=== PATIENT | male | born 1940 | race Caucasian/White ===

== ENCOUNTER 2017-08-10 17:55 | Inpatient (IN) | payer MEDICARE, MEDICAID ==
[~2017-08-10 17:55] MED LIST: ALLO300T2 PO; OMEP20CA10 PO
[2017-08-10 19:06] LABS: BASOPHILS % (AUTO) 0.6 % (0-1); EOSINOPHILS # (AUTO) 0.1 X10'3 (0-0.9); EOSINOPHILS % (AUTO) 1.6 % (0-6); HEMOGLOBIN 7.4 g/dl (14.0-17.9); LYMPHOCYTES # (AUTO) 2.1 X10'3 (1.1-4.8); LYMPHOCYTES % (AUTO) 30.1 % (21-51); MEAN CORPUSCULAR HEMOGLOBIN 23.4 PG (27.0-31.0); MEAN CORPUSCULAR HGB CONC 30.7 % (33.0-36.5); MEAN CORPUSCULAR VOLUME 76.1 FL (78-98); MEAN PLATELET VOLUME 7.9 FL (7.4-10.4); MONOCYTES # (AUTO) 0.6 X10'3 (0-0.9); MONOCYTES % (AUTO) 8.7 % (2-12); NEUTROPHILS # (AUTO) 4.1 X10'3 (1.8-7.7); PLATELET COUNT 168 X10'3 (140-440); RED BLOOD COUNT 3.16 X10'6 (4.70-6.10); RED CELL DISTRIBUTION WIDTH 20.7 % (11.5-14.5); WHITE BLOOD COUNT 6.9 X10'3 (4.5-11.0)
[2017-08-10 19:17] LABS: PROTHROMBIN TIME 10.7 SECONDS (9.0-12.0)
[2017-08-10 19:21] LABS: ALANINE AMINOTRANSFERASE 19 U/L (12-78); ALBUMIN 3.5 G/DL (3.4-5.0); ALBUMIN/GLOBULIN RATIO 1.1 (1.1-1.5); ALKALINE PHOSPHATASE 90 IU/L (46-116); ANION GAP 12 (8-16); ASPARTATE AMINO TRANSFERASE 19 U/L (10-37); BILIRUBIN,TOTAL 0.4 MG/DL (0.1-1.0); BLOOD UREA NITROGEN 17 MG/DL (7-18); BUN/CREATININE RATIO 15.2 (5.4-32.0); CALCIUM 8.7 MG/DL (8.5-10.1); CHLORIDE 111 MMOL/L (99-107); CREATININE 1.12 MG/DL (0.60-1.10); GLUCOSE 101 MG/DL (70-104); SODIUM 145 MMOL/L (135-145); TOTAL CARBON DIOXIDE 22.2 MMOL/L (24-32); TOTAL PROTEIN 6.6 G/DL (6.4-8.2); eGFR 64 ML/MIN
[2017-08-10 20:54] LABS: TROPONIN I 0.07 NG/ML (0.0-0.05)
[2017-08-10] MEDS ORDERED: temazepam 15mg capsule PO PRN (21:00)
[2017-08-10] MEDS ORDERED: FERR-119 PO (21:37)
[2017-08-10] MEDS ORDERED: normal saline 1000ml 1,000 ML IVB ONE (22:12)
[2017-08-10] MEDS ORDERED: HYDROcodone/acetaminophen 10/325mg tab PO PRN (22:15)
[2017-08-10] MEDS ORDERED: diphenhydrAMINE 50 mg/ml inj IV PRN (22:15)
[2017-08-10] MEDS ORDERED: mag hydrox/Alum hydrox/simeth 30ml oral suspension PO PRN (22:15)
[2017-08-10] MEDS ORDERED: bisacodyl 10mg suppository rectal RC PRN (22:15)
[2017-08-10] MEDS ORDERED: ondansetron/PF 4mg/2ml inj IV PRN (22:15)
[2017-08-10] MEDS ORDERED: magnesium hydroxide 30ml (MOM) UD suspension PO PRN (22:15)
[2017-08-10] MEDS ORDERED: acetaminophen 650mg rectal suppository RC PRN (22:15)
[2017-08-10] MEDS ORDERED: HYDROcodone/acetaminophen 5mg/325mg tablet PO PRN (22:15)
[2017-08-10] MEDS ORDERED: acetaminophen 325mg tablet PO PRN (22:15)
[2017-08-10] MEDS ORDERED: diphenhydrAMINE 25mg capsule PO PRN (22:15)
[2017-08-10 22:45] LABS: MAGNESIUM 1.9 MG/DL (1.5-2.4); PHOSPHORUS 3.5 MG/DL (2.3-4.5)
[2017-08-10] MEDS: pantoprazole 40MG/NS 100ML BAG 100 ML IV SCH (22:55)
[2017-08-10] MEDS: normal saline 1000ml 1,000 ML IV SCH (22:58)
[2017-08-10 22:59] LABS: CLARITY,URINE CLEAR (Clear); COLOR,URINE YELLOW (Yellow); GLUCOSE, URINE NEGATIVE (Neg); KETONES,URINE NEGATIVE (Neg); LEUKOCYTE ESTERASE ,URINE NEGATIVE (Neg); NITRITES, URINE NEGATIVE (Neg); OCCULT BLOOD,URINE NEGATIVE (Neg); PH,URINE 5.5 (4.8-8.0); PROTEIN,URINE 30 mg/dl (Neg); UROBILINOGEN,URINE 0.2 E.U/dL (0.2-1.0)
[2017-08-10 23:12] LABS: UA COLLECTION TYPE NON-SPECIFIED
[2017-08-10 23:13] LABS: BACTERIA,URINE NONE SEEN /HPF (Neg); RBC,URINE NONE SEEN /HPF (0-2); SQUAMOUS EPITHELIAL CELL,UR FEW /LPF (FEW); WBC,URINE NONE SEEN /HPF (0-4)
[2017-08-10 23:30] VITALS: BP 156/92
[2017-08-11] VITALS (10 sets, daily range): BP systolic 130–154; BP diastolic 69–85
[2017-08-11] MEDS: pantoprazole 40MG/NS 100ML BAG 100 ML IV SCH ×5 (01:00→18:04)
[2017-08-11] MEDS ORDERED: FLU VACC QS2017-18 36MOS UP/PF 60 MCG/0.5 ML SYRINGE IMVAC ONE (06:20)
[2017-08-11 07:00] LABS: BASOPHILS # (AUTO) 0.1 X10'3 (0-0.2); BASOPHILS % (AUTO) 1.1 % (0-1); EOSINOPHILS # (AUTO) 0.1 X10'3 (0-0.9); EOSINOPHILS % (AUTO) 1.8 % (0-6); HEMATOCRIT 22.6 % (42.0-52.0); LYMPHOCYTES # (AUTO) 1.9 X10'3 (1.1-4.8); LYMPHOCYTES % (AUTO) 31.3 % (21-51); MEAN CORPUSCULAR HEMOGLOBIN 23.5 PG (27.0-31.0); MEAN CORPUSCULAR HGB CONC 30.8 % (33.0-36.5); MEAN CORPUSCULAR VOLUME 76.4 FL (78-98); MEAN PLATELET VOLUME 8.6 FL (7.4-10.4); MONOCYTES # (AUTO) 0.4 X10'3 (0-0.9); MONOCYTES % (AUTO) 6.8 % (2-12); NEUTROPHILS # (AUTO) 3.5 X10'3 (1.8-7.7); PLATELET COUNT 157 X10'3 (140-440); RED BLOOD COUNT 2.95 X10'6 (4.70-6.10); RED CELL DISTRIBUTION WIDTH 20.6 % (11.5-14.5)
[2017-08-11 07:27] LABS: ALANINE AMINOTRANSFERASE 22 U/L (12-78); ALBUMIN 3.1 G/DL (3.4-5.0); ALBUMIN/GLOBULIN RATIO 1.1 (1.1-1.5); ALKALINE PHOSPHATASE 80 IU/L (46-116); ANION GAP 11 (8-16); ASPARTATE AMINO TRANSFERASE 16 U/L (10-37); BILIRUBIN,TOTAL 0.5 MG/DL (0.1-1.0); BLOOD UREA NITROGEN 18 MG/DL (7-18); BUN/CREATININE RATIO 16.1 (5.4-32.0); CALCIUM 8.8 MG/DL (8.5-10.1); CHLORIDE 116 MMOL/L (99-107); CREATININE 1.12 MG/DL (0.60-1.10); GLUCOSE 104 MG/DL (70-104); POTASSIUM 3.9 MMOL/L (3.5-5.1); SODIUM 147 MMOL/L (135-145); TOTAL CARBON DIOXIDE 20.3 MMOL/L (24-32); TOTAL PROTEIN 5.9 G/DL (6.4-8.2); TROPONIN I 0.07 NG/ML (0.0-0.05); eGFR 64 ML/MIN
[2017-08-11] MEDS: nitroGLYCERIN 0.1mg/hour patch TD SCH (08:00)
[2017-08-11] MEDS: docusate sod 100mg capsule PO SCH ×3 (08:00→20:00)
[2017-08-11] MEDS: normal saline 1000ml 1,000 ML IV SCH ×2 (08:14→15:06)
[2017-08-11] MEDS: ciprofloxacin/D5W 200mg/100mL 100 ML IV SCH ×2 (08:17→22:28)
[2017-08-11] MEDS: lisinopril 5mg tablet PO SCH (08:17)
[2017-08-11] MEDS: ferrous sulfate 325mg tablet PO SCH ×3 (08:18→21:38)
[2017-08-11] MEDS: metoprolol tartrate 12.5mg (1/2 tablet) PO SCH ×2 (08:18→21:42)
[2017-08-11] MEDS: allopurinol 300 MG tablet PO SCH (08:19)
[2017-08-11] MEDS: metroNIDAZOLE-Flagyl 250mg/NS 50 ML IV SCH ×2 (09:47→21:28)
[2017-08-11] MEDS: lactobacillus rhamnosus 10,000 MMU CELLS/CAPSULE PO SCH (18:04)
[2017-08-11] MEDS ORDERED: diphenhydrAMINE 25mg capsule PO ONE (18:55)
[2017-08-11] MEDS ORDERED: acetaminophen 325mg tablet PO ONE (18:55)
[2017-08-11] MEDS ORDERED: furosemide 20 MG/2 ML vial IV ONE (18:55)
[2017-08-12] VITALS (18 sets, daily range): BP systolic 100–170; BP diastolic 57–89
[2017-08-12 00:51] LABS: OCCULT BLOOD STOOL POSITIVE (Neg)
[2017-08-12] MEDS: pantoprazole 40MG/NS 100ML BAG 100 ML IV SCH ×5 (01:19→18:59)
[2017-08-12] MEDS: normal saline 1000ml 1,000 ML IV SCH ×3 (04:14→16:22)
[2017-08-12] MEDS: nitroGLYCERIN 0.1mg/hour patch TD SCH (08:00)
[2017-08-12] MEDS: metoprolol tartrate 12.5mg (1/2 tablet) PO SCH ×2 (08:00→23:23)
[2017-08-12] MEDS: docusate sod 100mg capsule PO SCH ×2 (08:00→20:00)
[2017-08-12] MEDS: lisinopril 5mg tablet PO SCH (08:34)
[2017-08-12] MEDS: lactobacillus rhamnosus 10,000 MMU CELLS/CAPSULE PO SCH ×2 (08:34→18:59)
[2017-08-12] MEDS: allopurinol 300 MG tablet PO SCH (08:36)
[2017-08-12] MEDS: atorvastatin 10mg tablet PO SCH (08:37)
[2017-08-12] MEDS: ferrous sulfate 325mg tablet PO SCH ×3 (08:37→23:22)
[2017-08-12] MEDS: ciprofloxacin/D5W 200mg/100mL 100 ML IV SCH ×2 (08:42→20:19)
[2017-08-12 08:44] LABS: ALANINE AMINOTRANSFERASE 19 U/L (12-78); ALBUMIN 3.2 G/DL (3.4-5.0); ALBUMIN/GLOBULIN RATIO 1.2 (1.1-1.5); ALKALINE PHOSPHATASE 81 IU/L (46-116); ANION GAP 11 (8-16); ASPARTATE AMINO TRANSFERASE 16 U/L (10-37); BILIRUBIN,TOTAL 1.4 MG/DL (0.1-1.0); BLOOD UREA NITROGEN 18 MG/DL (7-18); BUN/CREATININE RATIO 14.1 (5.4-32.0); CALCIUM 8.8 MG/DL (8.5-10.1); CHLORIDE 113 MMOL/L (99-107); CREATININE 1.28 MG/DL (0.60-1.10); GLUCOSE 91 MG/DL (70-104); POTASSIUM 3.8 MMOL/L (3.5-5.1); SODIUM 145 MMOL/L (135-145); TOTAL CARBON DIOXIDE 21.3 MMOL/L (24-32); TOTAL PROTEIN 5.9 G/DL (6.4-8.2); eGFR 55 ML/MIN
[2017-08-12 08:46] LABS: BASOPHILS # (AUTO) 0.1 X10'3 (0-0.2); BASOPHILS % (AUTO) 0.8 % (0-1); EOSINOPHILS # (AUTO) 0.2 X10'3 (0-0.9); EOSINOPHILS % (AUTO) 2.8 % (0-6); HEMATOCRIT 30.4 % (42.0-52.0); HEMOGLOBIN 9.7 g/dl (14.0-17.9); LYMPHOCYTES % (AUTO) 28.3 % (21-51); MEAN CORPUSCULAR HEMOGLOBIN 24.6 PG (27.0-31.0); MEAN CORPUSCULAR HGB CONC 31.8 % (33.0-36.5); MEAN CORPUSCULAR VOLUME 77.5 FL (78-98); MEAN PLATELET VOLUME 8.3 FL (7.4-10.4); MONOCYTES # (AUTO) 0.6 X10'3 (0-0.9); MONOCYTES % (AUTO) 7.9 % (2-12); NEUTROPHILS # (AUTO) 4.2 X10'3 (1.8-7.7); NEUTROPHILS % (AUTO) 60.2 % (42-75); PLATELET COUNT 167 X10'3 (140-440); RED BLOOD COUNT 3.92 X10'6 (4.70-6.10); RED CELL DISTRIBUTION WIDTH 19.8 % (11.5-14.5); WHITE BLOOD COUNT 7.1 X10'3 (4.5-11.0)
[2017-08-12] MEDS: metroNIDAZOLE-Flagyl 250mg/NS 50 ML IV SCH ×2 (10:06→21:54)
[2017-08-12] MEDS ORDERED: LIDOcaine Viscous 15ml cup ONE (13:33)
[2017-08-12] MEDS ORDERED: MIDAZolam 1mg/ml 10ml vial ONE (13:33)
[2017-08-12] MEDS ORDERED: fentaNYL/PF 50MCG/1 ML 2ML syringe ONE (13:33)
[2017-08-12] MEDS ORDERED: fentaNYL/PF 50MCG/1 ML 2ML syringe IV PRN (14:50)
[2017-08-12] MEDS ORDERED: bisacodyl 5mg tablet.DR PO PRN (14:50)
[2017-08-12] MEDS ORDERED: PEG 3350/Na sulf,bicarb,Cl/KCl oral sol 4 liter bottle PO ONE (14:50)
[2017-08-12] MEDS ORDERED: MIDAZolam 1mg/ml 10ml vial IV PRN (14:50)
[2017-08-13] VITALS (13 sets, daily range): BP systolic 124–175; BP diastolic 62–88
[2017-08-13] MEDS: pantoprazole 40MG/NS 100ML BAG 100 ML IV SCH ×5 (00:43→21:12)
[2017-08-13] MEDS: normal saline 1000ml 1,000 ML IV SCH ×2 (02:47→17:30)
[2017-08-13 04:01] LABS: BASOPHILS % (AUTO) 0.6 % (0-1); EOSINOPHILS # (AUTO) 0.2 X10'3 (0-0.9); EOSINOPHILS % (AUTO) 3.2 % (0-6); HEMATOCRIT 30.7 % (42.0-52.0); HEMOGLOBIN 9.6 g/dl (14.0-17.9); LYMPHOCYTES # (AUTO) 1.9 X10'3 (1.1-4.8); LYMPHOCYTES % (AUTO) 24.6 % (21-51); MEAN CORPUSCULAR HEMOGLOBIN 24.4 PG (27.0-31.0); MEAN CORPUSCULAR HGB CONC 31.4 % (33.0-36.5); MEAN CORPUSCULAR VOLUME 77.7 FL (78-98); MEAN PLATELET VOLUME 7.7 FL (7.4-10.4); MONOCYTES # (AUTO) 0.6 X10'3 (0-0.9); NEUTROPHILS # (AUTO) 4.9 X10'3 (1.8-7.7); NEUTROPHILS % (AUTO) 63.6 % (42-75); PLATELET COUNT 167 X10'3 (140-440); RED BLOOD COUNT 3.95 X10'6 (4.70-6.10); RED CELL DISTRIBUTION WIDTH 18.9 % (11.5-14.5); WHITE BLOOD COUNT 7.7 X10'3 (4.5-11.0)
[2017-08-13 04:26] LABS: ALANINE AMINOTRANSFERASE 14 U/L (12-78); ALBUMIN 3.3 G/DL (3.4-5.0); ALBUMIN/GLOBULIN RATIO 1.3 (1.1-1.5); ALKALINE PHOSPHATASE 78 IU/L (46-116); ANION GAP 13 (8-16); ASPARTATE AMINO TRANSFERASE 16 U/L (10-37); BILIRUBIN,TOTAL 1.1 MG/DL (0.1-1.0); BLOOD UREA NITROGEN 16 MG/DL (7-18); BUN/CREATININE RATIO 12.7 (5.4-32.0); CALCIUM 8.5 MG/DL (8.5-10.1); CHLORIDE 111 MMOL/L (99-107); CREATININE 1.26 MG/DL (0.60-1.10); GLUCOSE 89 MG/DL (70-104); POTASSIUM 3.6 MMOL/L (3.5-5.1); SODIUM 144 MMOL/L (135-145); TOTAL CARBON DIOXIDE 19.6 MMOL/L (24-32); TOTAL PROTEIN 5.9 G/DL (6.4-8.2); eGFR 56 ML/MIN
[2017-08-13] MEDS: nitroGLYCERIN 0.1mg/hour patch TD SCH (08:00)
[2017-08-13] MEDS: docusate sod 100mg capsule PO SCH ×2 (08:00→20:00)
[2017-08-13] MEDS: lactobacillus rhamnosus 10,000 MMU CELLS/CAPSULE PO SCH ×2 (08:28→17:28)
[2017-08-13] MEDS: metoprolol tartrate 12.5mg (1/2 tablet) PO SCH ×2 (08:29→21:12)
[2017-08-13] MEDS: atorvastatin 10mg tablet PO SCH (08:30)
[2017-08-13] MEDS: allopurinol 300 MG tablet PO SCH (08:30)
[2017-08-13] MEDS: lisinopril 5mg tablet PO SCH (08:31)
[2017-08-13] MEDS: ferrous sulfate 325mg tablet PO SCH ×3 (08:31→21:13)
[2017-08-13] MEDS: ciprofloxacin/D5W 200mg/100mL 100 ML IV SCH ×2 (08:32→21:12)
[2017-08-13] MEDS: metroNIDAZOLE-Flagyl 250mg/NS 50 ML IV SCH ×2 (09:49→22:05)
[2017-08-13] MEDS ORDERED: MIDAZolam 1mg/ml 10ml vial ONE (11:55)
[2017-08-13] MEDS ORDERED: LIDOcaine Viscous 15ml cup ONE (11:55)
[2017-08-13] MEDS ORDERED: fentaNYL/PF 50MCG/1 ML 2ML syringe ONE (11:55)
[2017-08-13] MEDS ORDERED: simethicone 40mg/0.6ml oral drops 30ml MC ONE (14:05)
[2017-08-13] MEDS ORDERED: MIDAZolam 1mg/ml 10ml vial IV PRN (14:05)
[2017-08-13] MEDS ORDERED: normal saline 1000ml 1,000 ML IV SCH (14:05)
[2017-08-13] MEDS ORDERED: fentaNYL/PF 50MCG/1 ML 2ML syringe IV PRN (14:05)
[2017-08-14] VITALS: BP 157/93
[2017-08-14] MEDS: pantoprazole 40MG/NS 100ML BAG 100 ML IV SCH ×2 (01:17→05:53)
[2017-08-14] MEDS: normal saline 1000ml 1,000 ML IV SCH (03:49)
[2017-08-14 05:37] LABS: BASOPHILS % (AUTO) 0.6 % (0-1); EOSINOPHILS # (AUTO) 0.2 X10'3 (0-0.9); EOSINOPHILS % (AUTO) 3.2 % (0-6); HEMATOCRIT 30.1 % (42.0-52.0); HEMOGLOBIN 9.4 g/dl (14.0-17.9); LYMPHOCYTES % (AUTO) 25.7 % (21-51); MEAN CORPUSCULAR HEMOGLOBIN 24.6 PG (27.0-31.0); MEAN CORPUSCULAR HGB CONC 31.3 % (33.0-36.5); MEAN CORPUSCULAR VOLUME 78.5 FL (78-98); MEAN PLATELET VOLUME 8.2 FL (7.4-10.4); MONOCYTES # (AUTO) 0.7 X10'3 (0-0.9); MONOCYTES % (AUTO) 8.5 % (2-12); NEUTROPHILS # (AUTO) 4.8 X10'3 (1.8-7.7); PLATELET COUNT 168 X10'3 (140-440); RED BLOOD COUNT 3.83 X10'6 (4.70-6.10); RED CELL DISTRIBUTION WIDTH 19.6 % (11.5-14.5); WHITE BLOOD COUNT 7.8 X10'3 (4.5-11.0)
[2017-08-14 06:39] LABS: ALANINE AMINOTRANSFERASE 15 U/L (12-78); ALBUMIN 2.9 G/DL (3.4-5.0); ALBUMIN/GLOBULIN RATIO 1.2 (1.1-1.5); ALKALINE PHOSPHATASE 70 IU/L (46-116); ANION GAP 13 (8-16); ASPARTATE AMINO TRANSFERASE 13 U/L (10-37); BILIRUBIN,TOTAL 0.7 MG/DL (0.1-1.0); BLOOD UREA NITROGEN 15 MG/DL (7-18); BUN/CREATININE RATIO 11.5 (5.4-32.0); CALCIUM 8.3 MG/DL (8.5-10.1); CHLORIDE 115 MMOL/L (99-107); CREATININE 1.31 MG/DL (0.60-1.10); GLUCOSE 91 MG/DL (70-104); POTASSIUM 3.7 MMOL/L (3.5-5.1); SODIUM 146 MMOL/L (135-145); TOTAL CARBON DIOXIDE 18.3 MMOL/L (24-32); TOTAL PROTEIN 5.4 G/DL (6.4-8.2); eGFR 53 ML/MIN
[2017-08-14 08:00] VITALS: BP 112/68
[2017-08-14] MEDS: atorvastatin 10mg tablet PO SCH (08:00)
[2017-08-14] MEDS: ciprofloxacin/D5W 200mg/100mL 100 ML IV SCH (08:00)
[2017-08-14] MEDS: nitroGLYCERIN 0.1mg/hour patch TD SCH (08:00)
[2017-08-14] MEDS: metroNIDAZOLE-Flagyl 250mg/NS 50 ML IV SCH (08:00)
[2017-08-14] MEDS: docusate sod 100mg capsule PO SCH (08:00)
[2017-08-14] MEDS: lactobacillus rhamnosus 10,000 MMU CELLS/CAPSULE PO SCH (08:20)
[2017-08-14] MEDS: lisinopril 5mg tablet PO SCH (08:20)
[2017-08-14] MEDS: ferrous sulfate 325mg tablet PO SCH (08:20)
[2017-08-14] MEDS: metoprolol tartrate 12.5mg (1/2 tablet) PO SCH (08:21)
[2017-08-14] MEDS: allopurinol 300 MG tablet PO SCH (08:25)
[2017-08-14 11:00] VITALS: BP 142/75
== END 2017-08-14 11:05 | disposition home or self-care (01) | DRG 377 ==
LOC: ER 17:56 → ED HOLD 22:19 → SUR 3N 23:10
PROVIDERS: ADMIT Family Medicine; ATTEND Internal Medicine
PROC: 30233N1 Transfusion of Nonautologous Red Blood Cells into Peripheral Vein, Percutaneous Approach (ICD-10-PCS; principal; 2017-08-11)
PROC: 0W3P8ZZ Control Bleeding in Gastrointestinal Tract, Via Natural or Artificial Opening Endoscopic (ICD-10-PCS; 2017-08-12)
PROC: 0DJD8ZZ Inspection of Lower Intestinal Tract, Via Natural or Artificial Opening Endoscopic (ICD-10-PCS; 2017-08-13)
PROC: 0W3P8ZZ Control Bleeding in Gastrointestinal Tract, Via Natural or Artificial Opening Endoscopic (ICD-10-PCS; 2017-08-13)
DX: K92.1 Melena (principal); I50.31 Acute diastolic (congestive) heart failure; Z99.81 Dependence on supplemental oxygen; D62 Acute posthemorrhagic anemia; J44.9 Chronic obstructive pulmonary disease, unspecified; K57.32 Diverticulitis of large intestine without perforation or abscess without bleeding; I11.0 Hypertensive heart disease with heart failure; B19.20 Unspecified viral hepatitis C without hepatic coma; F12.90 Cannabis use, unspecified, uncomplicated; K31.89 Other diseases of stomach and duodenum; K21.9 Gastro-esophageal reflux disease without esophagitis; M19.90 Unspecified osteoarthritis, unspecified site; M10.9 Gout, unspecified; Z90.81 Acquired absence of spleen; Z79.899 Other long term (current) drug therapy; Z88.8 Allergy status to other drugs, medicaments and biological substances; Z88.0 Allergy status to penicillin; Z91.010 Allergy to peanuts; Z87.11 Personal history of peptic ulcer disease; Z87.891 Personal history of nicotine dependence
CPT/HCPCS: 36415; 45378; 71020; 71250; 74176; 80053; 81001; 82272; 83735; 83880; 84100; 84443; 84484; 85025; 85610; 86870; 86885; 86900; 86901; 86902; 86905; 86920; 86922; 87070; 93005; 94760; 97116; 97162; 99285; A4620; C9113; G0500; J0744; J1940; J2250; J3010; J3490; J7030; P9016; Q0163

== ENCOUNTER 2017-08-24 12:43 | Emergency (ER) | payer MEDICARE, MEDICAID ==
[~2017-08-24] VITALS: Ht 182.9 cm; Wt 65.9 kg
[~2017-08-24 12:43] MED LIST changes: +FERR-119 PO
[2017-08-24] MEDS ORDERED: normal saline 1000ML IV soln IVB ONE (13:20)
[2017-08-24 13:53] LABS: BASOPHILS % (AUTO) 0.6 % (0-1); EOSINOPHILS # (AUTO) 0.1 X10'3 (0-0.9); EOSINOPHILS % (AUTO) 1.9 % (0-6); HEMATOCRIT 36.5 % (42.0-52.0); HEMOGLOBIN 11.5 g/dl (14.0-17.9); LYMPHOCYTES # (AUTO) 2.3 X10'3 (1.1-4.8); MEAN CORPUSCULAR HEMOGLOBIN 25.1 PG (27.0-31.0); MEAN CORPUSCULAR HGB CONC 31.5 % (33.0-36.5); MEAN CORPUSCULAR VOLUME 79.5 FL (78-98); MEAN PLATELET VOLUME 8.6 FL (7.4-10.4); MONOCYTES # (AUTO) 0.5 X10'3 (0-0.9); MONOCYTES % (AUTO) 8.2 % (2-12); NEUTROPHILS # (AUTO) 3.7 X10'3 (1.8-7.7); NEUTROPHILS % (AUTO) 55.3 % (42-75); PLATELET COUNT 195 X10'3 (140-440); RED BLOOD COUNT 4.59 X10'6 (4.70-6.10); WHITE BLOOD COUNT 6.7 X10'3 (4.5-11.0)
[2017-08-24 14:08] LABS: ALANINE AMINOTRANSFERASE 18 U/L (12-78); ALBUMIN 3.6 G/DL (3.4-5.0); ALBUMIN/GLOBULIN RATIO 1.1 (1.1-1.5); ALKALINE PHOSPHATASE 92 IU/L (46-116); ANION GAP 7 (8-16); ASPARTATE AMINO TRANSFERASE 19 U/L (10-37); BILIRUBIN,TOTAL 0.5 MG/DL (0.1-1.0); BLOOD UREA NITROGEN 16 MG/DL (7-18); BUN/CREATININE RATIO 13.4 (5.4-32.0); CHLORIDE 112 MMOL/L (99-107); CREATININE 1.19 MG/DL (0.60-1.10); GLUCOSE 92 MG/DL (70-104); LIPASE 234 U/L (73-393); MAGNESIUM 1.8 MG/DL (1.5-2.4); POTASSIUM 3.7 MMOL/L (3.5-5.1); SODIUM 144 MMOL/L (135-145); TOTAL CARBON DIOXIDE 25.3 MMOL/L (24-32); TOTAL PROTEIN 6.9 G/DL (6.4-8.2); eGFR 60 ML/MIN
[2017-08-24] MEDS ORDERED: LACT70CA PO (14:47)
[2017-08-24 14:59] VITALS: BP 166/83
== END 2017-08-24 15:01 | disposition home or self-care (01) ==
LOC: ER 12:43
DX: R19.7 Diarrhea, unspecified (principal); F12.10 Cannabis abuse, uncomplicated; I11.0 Hypertensive heart disease with heart failure; I50.9 Heart failure, unspecified; J44.9 Chronic obstructive pulmonary disease, unspecified; M19.90 Unspecified osteoarthritis, unspecified site; M10.9 Gout, unspecified; Z87.11 Personal history of peptic ulcer disease; Z98.890 Other specified postprocedural states; Z56.0 Unemployment, unspecified; Z91.010 Allergy to peanuts; Z88.0 Allergy status to penicillin; Z88.4 Allergy status to anesthetic agent; Z79.899 Other long term (current) drug therapy
CPT/HCPCS: 36415; 80053; 83690; 83735; 85025; 99284; J7030

== ENCOUNTER 2017-09-27 19:02 | Emergency (ER) | payer MEDICARE, MEDICAID ==
[~2017-09-27] VITALS: Ht 182.9 cm; Wt 66.0 kg
[~2017-09-27 19:02] MED LIST changes: +LACT70CA PO
[2017-09-27 20:19] LABS: BASOPHILS % (AUTO) 0.7 % (0-1); EOSINOPHILS # (AUTO) 0.1 X10'3 (0-0.9); EOSINOPHILS % (AUTO) 1.2 % (0-6); HEMATOCRIT 34.8 % (42.0-52.0); HEMOGLOBIN 11.5 g/dl (14.0-17.9); LYMPHOCYTES # (AUTO) 1.5 X10'3 (1.1-4.8); LYMPHOCYTES % (AUTO) 21.1 % (21-51); MEAN CORPUSCULAR HGB CONC 33.2 % (33.0-36.5); MEAN CORPUSCULAR VOLUME 81.6 FL (78-98); MEAN PLATELET VOLUME 8.7 FL (7.4-10.4); MONOCYTES # (AUTO) 0.7 X10'3 (0-0.9); MONOCYTES % (AUTO) 10.3 % (2-12); NEUTROPHILS # (AUTO) 4.7 X10'3 (1.8-7.7); NEUTROPHILS % (AUTO) 66.7 % (42-75); PLATELET COUNT 142 X10'3 (140-440); RED BLOOD COUNT 4.27 X10'6 (4.70-6.10); RED CELL DISTRIBUTION WIDTH 22.1 % (11.5-14.5); WHITE BLOOD COUNT 7.1 X10'3 (4.5-11.0)
[2017-09-27 20:33] LABS: ALANINE AMINOTRANSFERASE 23 U/L (12-78); ALBUMIN/GLOBULIN RATIO 1.3 (1.1-1.5); ALKALINE PHOSPHATASE 102 IU/L (46-116); ANION GAP 14 (8-16); ASPARTATE AMINO TRANSFERASE 22 U/L (10-37); BILIRUBIN,TOTAL 0.9 MG/DL (0.1-1.0); BLOOD UREA NITROGEN 20 MG/DL (7-18); BUN/CREATININE RATIO 15.3 (5.4-32.0); CALCIUM 9.3 MG/DL (8.5-10.1); CHLORIDE 106 MMOL/L (99-107); CREATININE 1.31 MG/DL (0.60-1.10); GLUCOSE 96 MG/DL (70-104); POTASSIUM 3.8 MMOL/L (3.5-5.1); SODIUM 143 MMOL/L (135-145); eGFR 53 ML/MIN
[2017-09-27] MEDS ORDERED: LEVO500T2 PO (21:08)
[2017-09-27] MEDS ORDERED: levoFLOXACIN 250mg tablet PO ONE (21:10)
[2017-09-27 21:29] VITALS: BP 146/87
== END 2017-09-27 21:30 | disposition home or self-care (01) ==
LOC: ER 19:03
DX: J18.9 Pneumonia, unspecified organism (principal); I11.0 Hypertensive heart disease with heart failure; I50.9 Heart failure, unspecified; J44.9 Chronic obstructive pulmonary disease, unspecified; E11.9 Type 2 diabetes mellitus without complications; F12.90 Cannabis use, unspecified, uncomplicated; Z56.0 Unemployment, unspecified; Z88.0 Allergy status to penicillin; Z91.018 Allergy to other foods; Z79.899 Other long term (current) drug therapy; Z72.0 Tobacco use
CPT/HCPCS: 36415; 71046; 80053; 83605; 85025; 87040; 99285

== ENCOUNTER 2017-12-18 09:22 | Day surgery (SDC) | payer MEDICARE, MEDICAID ==
[2017-12-13 15:24] LABS: BASOPHILS % (AUTO) 0.7 % (0-1); EOSINOPHILS # (AUTO) 0.2 X10'3 (0-0.9); EOSINOPHILS % (AUTO) 3.6 % (0-6); LYMPHOCYTES # (AUTO) 1.4 X10'3 (1.1-4.8); LYMPHOCYTES % (AUTO) 21.5 % (21-51); MEAN CORPUSCULAR HEMOGLOBIN 28.4 PG (27.0-31.0); MEAN CORPUSCULAR HGB CONC 33.3 % (33.0-36.5); MEAN CORPUSCULAR VOLUME 85.4 FL (78-98); MEAN PLATELET VOLUME 8.5 FL (7.4-10.4); MONOCYTES # (AUTO) 0.7 X10'3 (0-0.9); MONOCYTES % (AUTO) 10.9 % (2-12); NEUTROPHILS % (AUTO) 63.3 % (42-75); PRE OP HEMATOCRIT 38.7 % (42.0-52.0); PRE OP HEMOGLOBIN 12.9 g/dL (14.0-17.9); PRE OP PLATELET COUNT 152 X10'3 (140-440); RED BLOOD COUNT 4.53 X10'6 (4.70-6.10); RED CELL DISTRIBUTION WIDTH 21.5 % (11.5-14.5)
[2017-12-13 15:37] LABS: ALBUMIN 3.7 G/DL (3.4-5.0); ALBUMIN/GLOBULIN RATIO 1.1 (1.1-1.5); ALKALINE PHOSPHATASE 108 IU/L (46-116); BLOOD UREA NITROGEN 18 MG/DL (7-18); BUN/CREATININE RATIO 15.4 (5.4-32.0); CALCIUM 9.2 MG/DL (8.5-10.1); CHLORIDE 108 MMOL/L (99-107); CREATININE 1.17 MG/DL (0.60-1.10); PRE OP ALT 29 U/L (30-65); PRE OP ANION GAP 9 (8-16); PRE OP AST 25 U/L (10-37); PRE OP BILIRUB, TOTAL 0.6 MG/DL (0.0-1.0); PRE OP GLUCOSE 89 MG/DL (70-104); PRE OP POTASSIUM 3.8 MMOL/L (3.4-5.1); PRE OP SODIUM 143 MMOL/L (135-145); TOTAL CARBON DIOXIDE 25.9 MMOL/L (24-32); eGFR 61 ML/MIN
[2017-12-13 15:42] LABS: CLARITY,URINE CLEAR (Clear); COLOR,URINE YELLOW (Yellow); GLUCOSE, URINE NEGATIVE (Neg); KETONES,URINE NEGATIVE (Neg); LEUKOCYTE ESTERASE ,URINE NEGATIVE (Neg); NITRITES, URINE NEGATIVE (Neg); OCCULT BLOOD,URINE NEGATIVE (Neg); PROTEIN,URINE 100 mg/dl (Neg); UROBILINOGEN,URINE 0.2 E.U/dL (0.2-1.0)
[2017-12-13 15:53] LABS: UA COLLECTION TYPE VOIDED
[2017-12-13 15:54] LABS: BACTERIA,URINE FEW /HPF (Neg); RBC,URINE 0-2 /HPF (0-2); SQUAMOUS EPITHELIAL CELL,UR FEW /LPF (FEW); WBC,URINE 0-4 /HPF (0-4)
[~2017-12-18] VITALS: Ht 182.9 cm; Wt 67.0 kg
[2017-12-18] VITALS (12 sets, daily range): BP systolic 149–178; BP diastolic 75–99
[~2017-12-18 09:22] MED LIST changes: -LACT70CA PO; +clindamycin-Cleocin 900mg/D5W 50 ML IV ONE; +famotidine 20mg tablet PO ONE; +ringers solution, lacted 1,000 ML IV SCH
[2017-12-18] MEDS ORDERED: meperidine/PF 50mg/ml syringe IV PRN ×3 (10:20)
[2017-12-18] MEDS ORDERED: ringers solution, lacted 1,000 ML IV SCH (10:20)
[2017-12-18] MEDS ORDERED: HYDROmorphone inj. 0.5 MG/0.5 ML DISP.SYRIN IV PRN ×2 (10:20)
[2017-12-18] MEDS ORDERED: fentaNYL/PF 50MCG/1 ML 2ML syringe IV PRN ×2 (10:20)
[2017-12-18] MEDS ORDERED: proCHLORperazine 10 MG/2 ml inj IV PRN (10:20)
[2017-12-18] MEDS ORDERED: ondansetron/PF 4mg/2ml inj IV PRN (10:20)
[2017-12-18] MEDS ORDERED: BUPIVAcaine 0.5% inj/PF 30 ml vial ONE (11:05)
[2017-12-18] MEDS ORDERED: fentaNYL/PF 50MCG/1 ML 2ML syringe ONE (11:19)
[2017-12-18] MEDS ORDERED: midazolam 2 mg/2 ml injection ONE (11:20)
[2017-12-18] MEDS ORDERED: LIDOcaine 1% 30ml preserv. free vial ONE (11:54)
[2017-12-18] MEDS ORDERED: propofol inj 20 ML IV ONE (12:16)
[2017-12-18] MEDS ORDERED: acetaminophen w/codeine (30MG) #3 tablet PO ONE (13:10)
== END 2017-12-18 14:53 | disposition home or self-care (01) ==
LOC: PAS 09:22
PROVIDERS: ATTEND Surgery
DX: A63.0 Anogenital (venereal) warts (principal); K64.8 Other hemorrhoids; F15.21 Other stimulant dependence, in remission; M51.36 Other intervertebral disc degeneration, lumbar region; I25.10 Atherosclerotic heart disease of native coronary artery without angina pectoris; G47.33 Obstructive sleep apnea (adult) (pediatric); M19.90 Unspecified osteoarthritis, unspecified site; E78.5 Hyperlipidemia, unspecified; I27.20 Pulmonary hypertension, unspecified; J43.9 Emphysema, unspecified; J45.998 Other asthma; B19.20 Unspecified viral hepatitis C without hepatic coma; Z98.41 Cataract extraction status, right eye; Z88.0 Allergy status to penicillin; Z87.11 Personal history of peptic ulcer disease; Z91.010 Allergy to peanuts; Z88.8 Allergy status to other drugs, medicaments and biological substances; Z98.42 Cataract extraction status, left eye; Z87.891 Personal history of nicotine dependence; Z72.89 Other problems related to lifestyle; Z79.899 Other long term (current) drug therapy
CPT/HCPCS: 36415; 45346; 80053; 81001; 85025; A6224; A6253; A6449; J2175; J2250; J2704; J3010; J3490; J7120; 88304; 88305; A7000

== ENCOUNTER 2018-01-21 10:18 | Day surgery (SDC) | payer MEDICARE, MEDICAID ==
[~2018-01-21] VITALS: Ht 182.9 cm; Wt 65.2 kg
[2018-01-21] VITALS (11 sets, daily range): BP systolic 125–172; BP diastolic 64–79
[~2018-01-21 10:18] MED LIST changes: -clindamycin-Cleocin 900mg/D5W 50 ML IV ONE; -famotidine 20mg tablet PO ONE; -ringers solution, lacted 1,000 ML IV SCH
[2018-01-21] MEDS ORDERED: NORTRIPTYLINE PO (10:49)
[2018-01-21] MEDS ORDERED: sod bicarbonate 150mEq in D5W 1,150 ML IV ONE (11:00)
[2018-01-21 11:08] LABS: BASOPHILS % (AUTO) 0.6 % (0-1); EOSINOPHILS # (AUTO) 0.1 X10'3 (0-0.9); EOSINOPHILS % (AUTO) 2.6 % (0-6); HEMATOCRIT 37.6 % (42.0-52.0); HEMOGLOBIN 12.4 g/dl (14.0-17.9); LYMPHOCYTES # (AUTO) 1.1 X10'3 (1.1-4.8); LYMPHOCYTES % (AUTO) 21.2 % (21-51); MEAN CORPUSCULAR HEMOGLOBIN 29.6 PG (27.0-31.0); MEAN CORPUSCULAR VOLUME 89.8 FL (78-98); MEAN PLATELET VOLUME 8.6 FL (7.4-10.4); MONOCYTES # (AUTO) 0.4 X10'3 (0-0.9); MONOCYTES % (AUTO) 7.2 % (2-12); NEUTROPHILS # (AUTO) 3.7 X10'3 (1.8-7.7); NEUTROPHILS % (AUTO) 68.4 % (42-75); PLATELET COUNT 131 X10'3 (140-440); RED BLOOD COUNT 4.19 X10'6 (4.70-6.10); RED CELL DISTRIBUTION WIDTH 19.1 % (11.5-14.5); WHITE BLOOD COUNT 5.4 X10'3 (4.5-11.0)
[2018-01-21 11:18] LABS: ANION GAP 11 (8-16); BLOOD UREA NITROGEN 16 MG/DL (7-18); BUN/CREATININE RATIO 13.6 (5.4-32.0); CALCIUM 9.3 MG/DL (8.5-10.1); CHLORIDE 109 MMOL/L (99-107); CREATININE 1.18 MG/DL (0.60-1.10); GLUCOSE 89 MG/DL (70-104); MAGNESIUM 1.7 MG/DL (1.5-2.4); POTASSIUM 3.9 MMOL/L (3.5-5.1); PROTHROMBIN TIME 10.2 SECONDS (9.0-12.0); SODIUM 144 MMOL/L (135-145); TOTAL CARBON DIOXIDE 23.9 MMOL/L (24-32); eGFR 60 ML/MIN
[2018-01-21] MEDS ORDERED: iohexol 350MG/ML 100ml bottle IV ONE (13:39)
[2018-01-21] MEDS ORDERED: LIDOcaine 1% 30ml preserv. free vial ONE (13:39)
[2018-01-21] MEDS ORDERED: iohexol 350 MG/ML 50ML vial IV ONE (13:39)
[2018-01-21] MEDS ORDERED: midazolam 2 mg/2 ml injection ONE (13:57)
[2018-01-21] MEDS ORDERED: fentaNYL/PF 50MCG/1 ML 2ML syringe ONE (13:57)
[2018-01-21] MEDS ORDERED: proCHLORperazine 10 MG/2 ml inj ONE (13:57)
== END 2018-01-21 19:05 | disposition home or self-care (01) ==
LOC: SSTAY O 10:18
PROVIDERS: ATTEND Internal Medicine Cardiovascular Disease
DX: I25.118 Atherosclerotic heart disease of native coronary artery with other forms of angina pectoris (principal); I35.0 Nonrheumatic aortic (valve) stenosis; I27.20 Pulmonary hypertension, unspecified; E78.5 Hyperlipidemia, unspecified; J43.8 Other emphysema; K21.9 Gastro-esophageal reflux disease without esophagitis; B19.20 Unspecified viral hepatitis C without hepatic coma; M19.90 Unspecified osteoarthritis, unspecified site; M85.88 Other specified disorders of bone density and structure, other site; M51.36 Other intervertebral disc degeneration, lumbar region; G47.33 Obstructive sleep apnea (adult) (pediatric); F15.21 Other stimulant dependence, in remission; Z87.11 Personal history of peptic ulcer disease; Z87.891 Personal history of nicotine dependence; Z88.0 Allergy status to penicillin; Z98.41 Cataract extraction status, right eye; Z98.42 Cataract extraction status, left eye; Z91.010 Allergy to peanuts; Z90.89 Acquired absence of other organs; Z72.89 Other problems related to lifestyle; Z88.8 Allergy status to other drugs, medicaments and biological substances; Z79.899 Other long term (current) drug therapy
CPT/HCPCS: 36415; 80048; 83735; 85025; 85610; 93005; 93460; 99152; 99153; A6257; C1760; C1769; C1894; J0780; J1644; J2250; J3010; J3490; J7030; Q9967; A4620

== ENCOUNTER 2018-03-09 09:01 | Emergency (ER) | payer MEDICARE, MEDICAID ==
[~2018-03-09] VITALS: Ht 182.9 cm; Wt 65.0 kg
[~2018-03-09 09:01] MED LIST changes: +NORTRIPTYLINE PO
[2018-03-09] MEDS ORDERED: CIPR-259 PO (10:33)
[2018-03-09] MEDS ORDERED: METR500T PO (10:33)
[2018-03-09 10:47] VITALS: BP 128/63
== END 2018-03-09 10:49 | disposition home or self-care (01) ==
LOC: ER 09:02
DX: K57.92 Diverticulitis of intestine, part unspecified, without perforation or abscess without bleeding (principal); I50.9 Heart failure, unspecified; I11.0 Hypertensive heart disease with heart failure; J44.9 Chronic obstructive pulmonary disease, unspecified; F12.90 Cannabis use, unspecified, uncomplicated; Z56.0 Unemployment, unspecified; Z87.891 Personal history of nicotine dependence; Z98.890 Other specified postprocedural states; Z90.81 Acquired absence of spleen; Z88.0 Allergy status to penicillin; Z88.8 Allergy status to other drugs, medicaments and biological substances; Z79.2 Long term (current) use of antibiotics; Z79.899 Other long term (current) drug therapy
CPT/HCPCS: 99283

== ENCOUNTER 2018-05-15 18:42 | Inpatient (IN) | payer MEDICARE, MEDICAID ==
[~2018-05-15] VITALS: Ht 182.9 cm; Wt 68.2 kg
[2018-05-15] MEDS ORDERED: normal saline 1000ML IV soln IV ONE (19:30)
[2018-05-15] MEDS ORDERED: acetaminophen 325mg tablet PO ONE (19:30)
[2018-05-15 19:53] LABS: CLARITY,URINE CLEAR (Clear); COLOR,URINE YELLOW (Yellow); GLUCOSE, URINE NEGATIVE (Neg); KETONES,URINE NEGATIVE (Neg); LEUKOCYTE ESTERASE ,URINE NEGATIVE (Neg); NITRITES, URINE NEGATIVE (Neg); OCCULT BLOOD,URINE TRACE-LYSED (Neg); PH,URINE 5.5 (4.8-8.0); PROTEIN,URINE 100 mg/dl (Neg); UROBILINOGEN,URINE 0.2 E.U/dL (0.2-1.0)
[2018-05-15] MEDS ORDERED: LISI-604 (19:53)
[2018-05-15] MEDS ORDERED: ATOR20TA66 (19:53)
[2018-05-15] MEDS ORDERED: CefTRIAXone 2gm/D5W 50ml 50 ML IV ONE (19:55)
[2018-05-15] MEDS ORDERED: azithromycin 250mg tablet PO ONE (19:55)
[2018-05-15 20:07] LABS: UA COLLECTION TYPE CLN CATCH MIDSTREAM
[2018-05-15 20:09] LABS: BACTERIA,URINE FEW /HPF (Neg); RBC,URINE 0-2 /HPF (0-2); SQUAMOUS EPITHELIAL CELL,UR FEW /LPF (FEW); WBC,URINE 0-4 /HPF (0-4)
[2018-05-15 20:16] LABS: ALANINE AMINOTRANSFERASE 21 U/L (12-78); ALBUMIN 3.5 G/DL (3.4-5.0); ALBUMIN/GLOBULIN RATIO 1.3 (1.1-1.5); ALKALINE PHOSPHATASE 89 IU/L (46-116); ANION GAP 14 (8-16); ASPARTATE AMINO TRANSFERASE 25 U/L (10-37); BILIRUBIN,TOTAL 0.8 MG/DL (0.1-1.0); BLOOD UREA NITROGEN 23 MG/DL (7-18); BUN/CREATININE RATIO 16.7 (5.4-32.0); CALCIUM 8.6 MG/DL (8.5-10.1); CHLORIDE 109 MMOL/L (99-107); CREATININE 1.38 MG/DL (0.60-1.10); GLUCOSE 174 MG/DL (70-104); POTASSIUM 3.6 MMOL/L (3.5-5.1); SODIUM 145 MMOL/L (135-145); TOTAL CARBON DIOXIDE 22.5 MMOL/L (24-32); TOTAL PROTEIN 6.3 G/DL (6.4-8.2); eGFR 50 ML/MIN
[2018-05-15 20:18] LABS: MAGNESIUM 1.5 MG/DL (1.5-2.4)
[2018-05-15 20:21] LABS: HEMATOCRIT 35.7 % (42.0-52.0); HEMOGLOBIN 11.7 g/dl (14.0-17.9); MEAN CORPUSCULAR HEMOGLOBIN 29.4 PG (27.0-31.0); MEAN CORPUSCULAR VOLUME 89.5 FL (78-98); RED BLOOD COUNT 3.99 X10'6 (4.70-6.10)
[2018-05-15 20:22] LABS: BASOPHILS % (AUTO) 0.4 % (0-1); EOSINOPHILS % (AUTO) 0.1 % (0-6); LYMPHOCYTES # (AUTO) 0.2 X10'3 (1.1-4.8); LYMPHOCYTES % (AUTO) 3.1 % (21-51); MEAN CORPUSCULAR HGB CONC 32.8 % (33.0-36.5); MEAN PLATELET VOLUME 8.9 FL (7.4-10.4); MONOCYTES # (AUTO) 0.5 X10'3 (0-0.9); MONOCYTES % (AUTO) 6.7 % (2-12); NEUTROPHILS # (AUTO) 7.3 X10'3 (1.8-7.7); NEUTROPHILS % (AUTO) 89.7 % (42-75); PLATELET COUNT 136 X10'3 (140-440); RED CELL DISTRIBUTION WIDTH 16.3 % (11.5-14.5)
[2018-05-15] MEDS ORDERED: aspirin 81mg tab.chew PO ONE (20:30)
[2018-05-15] MEDS ORDERED: mag hydrox/Alum hydrox/simeth 30ml oral suspension PO PRN (21:15)
[2018-05-15] MEDS ORDERED: magnesium hydroxide 30ml (MOM) UD suspension PO PRN (21:15)
[2018-05-15] MEDS ORDERED: ondansetron/PF 4mg/2ml inj IV PRN (21:15)
[2018-05-15] MEDS ORDERED: non-formulary drug (Omeprazole 1 CAP) PO PRN (21:20)
[2018-05-15] MEDS ORDERED: pantoprazole 40mg Tablet.DR PO PRN (21:25)
[2018-05-15] MEDS: normal saline 1000ml 1,000 ML IV SCH (21:57)
[2018-05-15] MEDS ORDERED: LISI-604 PO (23:17)
[2018-05-15] MEDS ORDERED: ALLO100T PO (23:17)
[2018-05-15] MEDS ORDERED: ATOR20TA PO (23:17)
[2018-05-16 03:00] VITALS: BP 96/58
[2018-05-16] MEDS: temazepam 15mg capsule PO PRN ×2 (03:44→22:31)
[2018-05-16 06:00] VITALS: BP 87/55
[2018-05-16] MEDS: azithromycin 250mg tablet PO SCH (07:55)
[2018-05-16] MEDS: allopurinol 300 MG tablet PO SCH (07:56)
[2018-05-16] MEDS: ferrous sulfate 325mg tablet PO SCH ×3 (07:57→20:07)
[2018-05-16] MEDS ORDERED: heparin, porcine 5000 units/ml vial SQ SCH (08:00)
[2018-05-16] MEDS: CefTRIAXone/D5W-Rocephin 1gm 50 ML IV SCH (08:05)
[2018-05-16] MEDS: normal saline 1000ml 1,000 ML IV SCH (08:06)
[2018-05-16 08:39] LABS: ALANINE AMINOTRANSFERASE 23 U/L (12-78); ALBUMIN 2.9 G/DL (3.4-5.0); ALBUMIN/GLOBULIN RATIO 1.1 (1.1-1.5); ALKALINE PHOSPHATASE 85 IU/L (46-116); ANION GAP 13 (8-16); ASPARTATE AMINO TRANSFERASE 28 U/L (10-37); BLOOD UREA NITROGEN 23 MG/DL (7-18); BUN/CREATININE RATIO 17.6 (5.4-32.0); CALCIUM 7.8 MG/DL (8.5-10.1); CHLORIDE 109 MMOL/L (99-107); CREATININE 1.31 MG/DL (0.60-1.10); GLUCOSE 111 MG/DL (70-104); POTASSIUM 3.9 MMOL/L (3.5-5.1); SODIUM 145 MMOL/L (135-145); TOTAL PROTEIN 5.6 G/DL (6.4-8.2); eGFR 53 ML/MIN
[2018-05-16 08:43] LABS: HEMATOCRIT 33.7 % (42.0-52.0); HEMOGLOBIN 11.2 g/dl (14.0-17.9); MEAN CORPUSCULAR HEMOGLOBIN 29.7 PG (27.0-31.0); MEAN CORPUSCULAR VOLUME 89.2 FL (78-98); RED BLOOD COUNT 3.78 X10'6 (4.70-6.10); WHITE BLOOD COUNT 13.4 X10'3 (4.5-11.0)
[2018-05-16 08:44] LABS: BASOPHILS % (AUTO) 0.1 % (0-1); EOSINOPHILS % (AUTO) 0.2 % (0-6); LYMPHOCYTES % (AUTO) 7.3 % (21-51); MEAN CORPUSCULAR HGB CONC 33.3 % (33.0-36.5); MEAN PLATELET VOLUME 9.2 FL (7.4-10.4); MONOCYTES # (AUTO) 0.9 X10'3 (0-0.9); MONOCYTES % (AUTO) 7.1 % (2-12); NEUTROPHILS # (AUTO) 11.5 X10'3 (1.8-7.7); NEUTROPHILS % (AUTO) 85.3 % (42-75); PLATELET COUNT 123 X10'3 (140-440); RED CELL DISTRIBUTION WIDTH 16.1 % (11.5-14.5)
[2018-05-16] MEDS ORDERED: heparin 10,000 units/1 ML INJ IV PRN (09:00)
[2018-05-16] MEDS ORDERED: heparin 10,000 units/1 ML INJ IV ONE (09:00)
[2018-05-16 11:00] VITALS: BP 105/56
[2018-05-16 15:00] VITALS: BP 108/59
[2018-05-16 18:00] VITALS: BP 123/58
[2018-05-16] MEDS: lactobacillus rhamnosus 10,000 MMU CELLS/CAPSULE PO SCH (20:07)
[2018-05-16 22:00] VITALS: BP 129/70
[2018-05-17 02:00] VITALS: BP 115/55
[2018-05-17 06:00] VITALS: BP 139/72
[2018-05-17 06:21] LABS: BASOPHILS % (AUTO) 0.3 % (0-1); EOSINOPHILS # (AUTO) 0.1 X10'3 (0-0.9); EOSINOPHILS % (AUTO) 1.4 % (0-6); HEMATOCRIT 30.2 % (42.0-52.0); HEMOGLOBIN 10.2 g/dl (14.0-17.9); MEAN CORPUSCULAR HEMOGLOBIN 29.5 PG (27.0-31.0); MEAN CORPUSCULAR HGB CONC 33.7 % (33.0-36.5); MEAN CORPUSCULAR VOLUME 87.4 FL (78-98); MONOCYTES # (AUTO) 0.7 X10'3 (0-0.9); MONOCYTES % (AUTO) 8.4 % (2-12); NEUTROPHILS % (AUTO) 78.9 % (42-75); PLATELET COUNT 122 X10'3 (140-440); RED BLOOD COUNT 3.45 X10'6 (4.70-6.10); RED CELL DISTRIBUTION WIDTH 16.1 % (11.5-14.5); WHITE BLOOD COUNT 8.8 X10'3 (4.5-11.0)
[2018-05-17 06:35] LABS: ALANINE AMINOTRANSFERASE 17 U/L (12-78); ALBUMIN 2.5 G/DL (3.4-5.0); ALBUMIN/GLOBULIN RATIO 0.9 (1.1-1.5); ALKALINE PHOSPHATASE 75 IU/L (46-116); ANION GAP 10 (8-16); ASPARTATE AMINO TRANSFERASE 19 U/L (10-37); BILIRUBIN,TOTAL 0.7 MG/DL (0.1-1.0); BLOOD UREA NITROGEN 23 MG/DL (7-18); BUN/CREATININE RATIO 17.8 (5.4-32.0); CALCIUM 7.9 MG/DL (8.5-10.1); CHLORIDE 110 MMOL/L (99-107); CREATININE 1.29 MG/DL (0.60-1.10); GLUCOSE 97 MG/DL (70-104); SODIUM 142 MMOL/L (135-145); TOTAL CARBON DIOXIDE 21.8 MMOL/L (24-32); TOTAL PROTEIN 5.3 G/DL (6.4-8.2); eGFR 54 ML/MIN
[2018-05-17] MEDS: lactobacillus rhamnosus 10,000 MMU CELLS/CAPSULE PO SCH ×2 (08:33→21:02)
[2018-05-17] MEDS: allopurinol 300 MG tablet PO SCH (08:33)
[2018-05-17] MEDS: CefTRIAXone/D5W-Rocephin 1gm 50 ML IV SCH (08:33)
[2018-05-17] MEDS: azithromycin 250mg tablet PO SCH (08:34)
[2018-05-17] MEDS: ferrous sulfate 325mg tablet PO SCH ×3 (08:34→21:02)
[2018-05-17] MEDS: normal saline 1000ml 1,000 ML IV SCH (08:36)
[2018-05-17] MEDS: heparin, porcine 5000 units/ml vial SQ SCH ×2 (08:37→16:20)
[2018-05-17 11:00] VITALS: BP 136/71
[2018-05-17 15:00] VITALS: BP 126/69
[2018-05-17 18:00] VITALS: BP 141/76
[2018-05-17] MEDS ORDERED: BUDESONIDE 0.25 MG/2 ML AMPUL.NEB IH SCH (20:00)
[2018-05-17] MEDS: temazepam 15mg capsule PO PRN (21:02)
[2018-05-17 22:00] VITALS: BP 139/77
[2018-05-18] MEDS: heparin, porcine 5000 units/ml vial SQ SCH ×2 (00:36→10:00)
[2018-05-18 02:00] VITALS: BP 125/71
[2018-05-18 06:00] VITALS: BP 108/62
[2018-05-18 06:43] LABS: BASOPHILS # (AUTO) 0.1 X10'3 (0-0.2); BASOPHILS % (AUTO) 0.9 % (0-1); EOSINOPHILS # (AUTO) 0.1 X10'3 (0-0.9); EOSINOPHILS % (AUTO) 1.9 % (0-6); HEMATOCRIT 29.4 % (42.0-52.0); HEMOGLOBIN 9.9 g/dl (14.0-17.9); LYMPHOCYTES # (AUTO) 0.6 X10'3 (1.1-4.8); LYMPHOCYTES % (AUTO) 9.2 % (21-51); MEAN CORPUSCULAR HEMOGLOBIN 29.7 PG (27.0-31.0); MEAN CORPUSCULAR HGB CONC 33.7 % (33.0-36.5); MEAN CORPUSCULAR VOLUME 88.3 FL (78-98); MEAN PLATELET VOLUME 8.9 FL (7.4-10.4); MONOCYTES # (AUTO) 0.5 X10'3 (0-0.9); MONOCYTES % (AUTO) 7.6 % (2-12); NEUTROPHILS # (AUTO) 5.7 X10'3 (1.8-7.7); NEUTROPHILS % (AUTO) 80.4 % (42-75); PLATELET COUNT 125 X10'3 (140-440); RED BLOOD COUNT 3.33 X10'6 (4.70-6.10); RED CELL DISTRIBUTION WIDTH 15.8 % (11.5-14.5)
[2018-05-18 06:57] LABS: ALANINE AMINOTRANSFERASE 15 U/L (12-78); ALBUMIN 2.6 G/DL (3.4-5.0); ALBUMIN/GLOBULIN RATIO 0.9 (1.1-1.5); ALKALINE PHOSPHATASE 78 IU/L (46-116); ANION GAP 12 (8-16); ASPARTATE AMINO TRANSFERASE 12 U/L (10-37); BILIRUBIN,TOTAL 0.6 MG/DL (0.1-1.0); BLOOD UREA NITROGEN 23 MG/DL (7-18); BUN/CREATININE RATIO 17.8 (5.4-32.0); CALCIUM 8.3 MG/DL (8.5-10.1); CHLORIDE 111 MMOL/L (99-107); CREATININE 1.29 MG/DL (0.60-1.10); GLUCOSE 103 MG/DL (70-104); POTASSIUM 3.7 MMOL/L (3.5-5.1); SODIUM 143 MMOL/L (135-145); TOTAL CARBON DIOXIDE 20.2 MMOL/L (24-32); TOTAL PROTEIN 5.5 G/DL (6.4-8.2); eGFR 54 ML/MIN
[2018-05-18] MEDS: ferrous sulfate 325mg tablet PO SCH ×3 (09:34→21:43)
[2018-05-18] MEDS: allopurinol 300 MG tablet PO SCH (09:34)
[2018-05-18] MEDS: atorvastatin 20mg tablet PO SCH (09:34)
[2018-05-18] MEDS: lactobacillus rhamnosus 10,000 MMU CELLS/CAPSULE PO SCH ×2 (09:35→19:51)
[2018-05-18] MEDS: normal saline 1000ml 1,000 ML IV SCH (09:35)
[2018-05-18] MEDS: CefTRIAXone/D5W-Rocephin 1gm 50 ML IV SCH (09:35)
[2018-05-18] MEDS: azithromycin 250mg tablet PO SCH (09:35)
[2018-05-18 11:00] VITALS: BP 149/120
[2018-05-18 12:01] LABS: OCCULT BLOOD STOOL POSITIVE (Neg)
[2018-05-18 15:00] VITALS: BP 150/80
[2018-05-18 18:00] VITALS: BP 128/92
[2018-05-18] MEDS ORDERED: pantoprazole 40 MG vial IV ONE (19:00)
[2018-05-18] MEDS: pantoprazole 40MG/NS 100ML BAG 100 ML IV SCH (21:42)
[2018-05-18 22:00] VITALS: BP 133/76
[2018-05-19] VITALS (19 sets, daily range): BP systolic 122–150; BP diastolic 59–84
[2018-05-19] MEDS: temazepam 15mg capsule PO PRN ×2 (00:07→21:12)
[2018-05-19] MEDS: pantoprazole 40MG/NS 100ML BAG 100 ML IV SCH ×5 (03:21→20:01)
[2018-05-19 06:59] LABS: BASOPHILS % (AUTO) 0.5 % (0-1); EOSINOPHILS # (AUTO) 0.1 X10'3 (0-0.9); EOSINOPHILS % (AUTO) 2.4 % (0-6); HEMATOCRIT 28.7 % (42.0-52.0); HEMOGLOBIN 9.8 g/dl (14.0-17.9); LYMPHOCYTES # (AUTO) 0.7 X10'3 (1.1-4.8); LYMPHOCYTES % (AUTO) 12.6 % (21-51); MEAN CORPUSCULAR HEMOGLOBIN 29.8 PG (27.0-31.0); MEAN CORPUSCULAR HGB CONC 34.1 % (33.0-36.5); MEAN CORPUSCULAR VOLUME 87.5 FL (78-98); MEAN PLATELET VOLUME 8.8 FL (7.4-10.4); MONOCYTES # (AUTO) 0.6 X10'3 (0-0.9); MONOCYTES % (AUTO) 10.2 % (2-12); NEUTROPHILS # (AUTO) 4.2 X10'3 (1.8-7.7); NEUTROPHILS % (AUTO) 74.3 % (42-75); PLATELET COUNT 127 X10'3 (140-440); RED BLOOD COUNT 3.28 X10'6 (4.70-6.10); RED CELL DISTRIBUTION WIDTH 15.6 % (11.5-14.5); WHITE BLOOD COUNT 5.6 X10'3 (4.5-11.0)
[2018-05-19 07:09] LABS: ALANINE AMINOTRANSFERASE 15 U/L (12-78); ALBUMIN 2.7 G/DL (3.4-5.0); ALBUMIN/GLOBULIN RATIO 0.9 (1.1-1.5); ALKALINE PHOSPHATASE 84 IU/L (46-116); ANION GAP 13 (8-16); ASPARTATE AMINO TRANSFERASE 17 U/L (10-37); BILIRUBIN,TOTAL 0.6 MG/DL (0.1-1.0); BLOOD UREA NITROGEN 21 MG/DL (7-18); BUN/CREATININE RATIO 18.8 (5.4-32.0); CALCIUM 8.3 MG/DL (8.5-10.1); CHLORIDE 110 MMOL/L (99-107); CREATININE 1.12 MG/DL (0.60-1.10); GLUCOSE 93 MG/DL (70-104); POTASSIUM 3.7 MMOL/L (3.5-5.1); SODIUM 145 MMOL/L (135-145); TOTAL CARBON DIOXIDE 21.9 MMOL/L (24-32); TOTAL PROTEIN 5.6 G/DL (6.4-8.2); eGFR 64 ML/MIN
[2018-05-19] MEDS: heparin, porcine 5000 units/ml vial SQ SCH ×3 (08:00→16:17)
[2018-05-19] MEDS: acetaminophen 325mg tablet PO PRN ×2 (08:45→19:53)
[2018-05-19] MEDS: azithromycin 250mg tablet PO SCH (08:45)
[2018-05-19] MEDS: lactobacillus rhamnosus 10,000 MMU CELLS/CAPSULE PO SCH ×2 (08:46→19:51)
[2018-05-19] MEDS: CefTRIAXone/D5W-Rocephin 1gm 50 ML IV SCH (08:46)
[2018-05-19] MEDS: allopurinol 300 MG tablet PO SCH (08:46)
[2018-05-19] MEDS: atorvastatin 20mg tablet PO SCH (08:46)
[2018-05-19] MEDS: ferrous sulfate 325mg tablet PO SCH ×3 (08:46→20:00)
[2018-05-19] MEDS ORDERED: fentaNYL/PF 50MCG/1 ML 2ML syringe ONE (09:40)
[2018-05-19] MEDS ORDERED: MIDAZolam 5mg/5ml vial ONE (09:41)
[2018-05-19] MEDS ORDERED: LIDOcaine Viscous 15ml cup ONE (09:41)
[2018-05-19 10:26] LABS: PROTHROMBIN TIME 10.5 SECONDS (9.0-12.0)
[2018-05-19] MEDS ORDERED: nitroGLYCERIN 0.4mg SUBLingual tab SL PRN (14:40)
[2018-05-19] MEDS: levoFLOXACIN-Levaquin 750MG/D5 150 ML IV SCH (16:19)
[2018-05-19] MEDS: metoprolol tartrate 12.5mg (1/2 tablet) PO SCH (19:52)
[2018-05-20] MEDS: pantoprazole 40MG/NS 100ML BAG 100 ML IV SCH ×3 (01:00→11:00)
[2018-05-20] MEDS: normal saline 1000ml 1,000 ML IV SCH (01:15)
[2018-05-20 03:00] VITALS: BP 152/75
[2018-05-20 05:34] LABS: ALANINE AMINOTRANSFERASE 13 U/L (12-78); ALBUMIN 2.5 G/DL (3.4-5.0); ALBUMIN/GLOBULIN RATIO 0.9 (1.1-1.5); ALKALINE PHOSPHATASE 81 IU/L (46-116); ANION GAP 14 (8-16); ASPARTATE AMINO TRANSFERASE 16 U/L (10-37); BILIRUBIN,TOTAL 0.6 MG/DL (0.1-1.0); BLOOD UREA NITROGEN 18 MG/DL (7-18); BUN/CREATININE RATIO 13.8 (5.4-32.0); CALCIUM 8.5 MG/DL (8.5-10.1); CHLORIDE 111 MMOL/L (99-107); GLUCOSE 86 MG/DL (70-104); POTASSIUM 3.8 MMOL/L (3.5-5.1); SODIUM 145 MMOL/L (135-145); TOTAL CARBON DIOXIDE 19.7 MMOL/L (24-32); TOTAL PROTEIN 5.3 G/DL (6.4-8.2); eGFR 54 ML/MIN
[2018-05-20 05:40] LABS: BASOPHILS % (AUTO) 0.9 % (0-1); EOSINOPHILS # (AUTO) 0.1 X10'3 (0-0.9); EOSINOPHILS % (AUTO) 2.8 % (0-6); HEMATOCRIT 27.9 % (42.0-52.0); HEMOGLOBIN 9.5 g/dl (14.0-17.9); LYMPHOCYTES # (AUTO) 0.4 X10'3 (1.1-4.8); LYMPHOCYTES % (AUTO) 8.7 % (21-51); MEAN CORPUSCULAR HEMOGLOBIN 30.1 PG (27.0-31.0); MEAN CORPUSCULAR HGB CONC 34.2 % (33.0-36.5); MEAN CORPUSCULAR VOLUME 88.1 FL (78-98); MEAN PLATELET VOLUME 8.8 FL (7.4-10.4); MONOCYTES # (AUTO) 0.5 X10'3 (0-0.9); NEUTROPHILS # (AUTO) 3.7 X10'3 (1.8-7.7); NEUTROPHILS % (AUTO) 76.6 % (42-75); PLATELET COUNT 118 X10'3 (140-440); RED BLOOD COUNT 3.17 X10'6 (4.70-6.10); RED CELL DISTRIBUTION WIDTH 15.7 % (11.5-14.5); WHITE BLOOD COUNT 4.7 X10'3 (4.5-11.0)
[2018-05-20 06:53] VITALS: BP 136/71
[2018-05-20] MEDS: ferrous sulfate 325mg tablet PO SCH (07:46)
[2018-05-20] MEDS: lactobacillus rhamnosus 10,000 MMU CELLS/CAPSULE PO SCH (07:46)
[2018-05-20] MEDS: atorvastatin 20mg tablet PO SCH (07:46)
[2018-05-20] MEDS: allopurinol 300 MG tablet PO SCH (07:46)
[2018-05-20] MEDS: metoprolol tartrate 12.5mg (1/2 tablet) PO SCH (07:46)
[2018-05-20] MEDS: heparin, porcine 5000 units/ml vial SQ SCH ×2 (07:48)
[2018-05-20] MEDS: levoFLOXACIN-Levaquin 750MG/D5 150 ML IV SCH (07:48)
[2018-05-20] MEDS ORDERED: NITR0.4T51 SL (11:04)
[2018-05-20] MEDS ORDERED: PANT-47 PO (11:04)
[2018-05-20] MEDS ORDERED: METO25TA6 PO (11:04)
[2018-05-20] MEDS ORDERED: LEVO750T21 PO (11:04)
== END 2018-05-20 13:22 | disposition home health service (06) | DRG 871 ==
LOC: ER 18:42 → ED HOLD 21:18 → PCU 3S 21:44
PROVIDERS: ADMIT Internal Medicine; ATTEND Family Medicine
PROC: 0DB68ZX Excision of Stomach, Via Natural or Artificial Opening Endoscopic, Diagnostic (ICD-10-PCS; principal; 2018-05-19)
PROC: 0D598ZZ Destruction of Duodenum, Via Natural or Artificial Opening Endoscopic (ICD-10-PCS; 2018-05-19)
PROC: 0D568ZZ Destruction of Stomach, Via Natural or Artificial Opening Endoscopic (ICD-10-PCS; 2018-05-19)
DX: A41.9 Sepsis, unspecified organism (principal); K29.71 Gastritis, unspecified, with bleeding; I21.4 Non-ST elevation (NSTEMI) myocardial infarction; J18.9 Pneumonia, unspecified organism; J96.20 Acute and chronic respiratory failure, unspecified whether with hypoxia or hypercapnia; K31.811 Angiodysplasia of stomach and duodenum with bleeding; I13.0 Hypertensive heart and chronic kidney disease with heart failure and stage 1 through stage 4 chronic kidney disease, or unspecified chronic kidney disease; J44.0 Chronic obstructive pulmonary disease with (acute) lower respiratory infection; B19.20 Unspecified viral hepatitis C without hepatic coma; M10.9 Gout, unspecified; M19.90 Unspecified osteoarthritis, unspecified site; D50.0 Iron deficiency anemia secondary to blood loss (chronic); E11.22 Type 2 diabetes mellitus with diabetic chronic kidney disease; I25.10 Atherosclerotic heart disease of native coronary artery without angina pectoris; I35.0 Nonrheumatic aortic (valve) stenosis; I50.9 Heart failure, unspecified; N18.9 Chronic kidney disease, unspecified; Z56.0 Unemployment, unspecified; Z90.81 Acquired absence of spleen; Z95.1 Presence of aortocoronary bypass graft; Z88.0 Allergy status to penicillin; Z88.8 Allergy status to other drugs, medicaments and biological substances; Z86.010 Personal history of colon polyps; Z87.11 Personal history of peptic ulcer disease; Z87.891 Personal history of nicotine dependence; Z80.0 Family history of malignant neoplasm of digestive organs; Z82.0 Family history of epilepsy and other diseases of the nervous system; Z79.82 Long term (current) use of aspirin
CPT/HCPCS: 36415; 43239; 71045; 80053; 81001; 82272; 82948; 83605; 83735; 84145; 84439; 84443; 84484; 85025; 85610; 85730; 87040; 87070; 87324; 87449; 88305; 88342; 92616; 93005; 94640; 94668; 94760; 99152; 99285; A4620; C9113; J0696; J1644; J1956; J2250; J3010; J7030

== ENCOUNTER 2018-06-03 11:29 | Outpatient (CLI) | payer MEDICARE, MEDICAID ==
[~2018-06-03 11:29] MED LIST changes: +ALLO100T PO; -ALLO300T2 PO; +ATOR20TA PO; +LISI-604 PO; +METO25TA6 PO; +NITR0.4T51 SL; -NORTRIPTYLINE PO; -OMEP20CA10 PO; +PANT-47 PO
[2018-06-03 12:37] LABS: BASOPHILS % (AUTO) 0.7 % (0-1); EOSINOPHILS # (AUTO) 0.1 X10'3 (0-0.9); EOSINOPHILS % (AUTO) 2.4 % (0-6); HEMATOCRIT 36.2 % (42.0-52.0); HEMOGLOBIN 11.7 g/dl (14.0-17.9); LYMPHOCYTES # (AUTO) 1.2 X10'3 (1.1-4.8); LYMPHOCYTES % (AUTO) 24.6 % (21-51); MEAN CORPUSCULAR HEMOGLOBIN 28.6 PG (27.0-31.0); MEAN CORPUSCULAR HGB CONC 32.2 % (33.0-36.5); MEAN CORPUSCULAR VOLUME 88.6 FL (78-98); MEAN PLATELET VOLUME 8.1 FL (7.4-10.4); MONOCYTES # (AUTO) 0.5 X10'3 (0-0.9); MONOCYTES % (AUTO) 10.4 % (2-12); NEUTROPHILS # (AUTO) 2.9 X10'3 (1.8-7.7); NEUTROPHILS % (AUTO) 61.9 % (42-75); PLATELET COUNT 190 X10'3 (140-440); RED BLOOD COUNT 4.08 X10'6 (4.70-6.10); RED CELL DISTRIBUTION WIDTH 18.2 % (11.5-14.5); WHITE BLOOD COUNT 4.7 X10'3 (4.5-11.0)
[2018-06-03 12:54] LABS: ALANINE AMINOTRANSFERASE 22 U/L (12-78); ALBUMIN 3.5 G/DL (3.4-5.0); ALBUMIN/GLOBULIN RATIO 1.1 (1.1-1.5); ALKALINE PHOSPHATASE 101 IU/L (46-116); ANION GAP 11 (8-16); ASPARTATE AMINO TRANSFERASE 20 U/L (10-37); BILIRUBIN,TOTAL 0.8 MG/DL (0.1-1.0); BLOOD UREA NITROGEN 17 MG/DL (7-18); BUN/CREATININE RATIO 15.2 (5.4-32.0); CALCIUM 8.7 MG/DL (8.5-10.1); CHLORIDE 108 MMOL/L (99-107); CREATININE 1.12 MG/DL (0.60-1.10); GLUCOSE 103 MG/DL (70-104); POTASSIUM 3.7 MMOL/L (3.5-5.1); SODIUM 145 MMOL/L (135-145); TOTAL CARBON DIOXIDE 26.5 MMOL/L (24-32); TOTAL PROTEIN 6.6 G/DL (6.4-8.2); eGFR 64 ML/MIN
[2018-06-03 13:32] LABS: ANISOCYTOSIS 2+; PLATELET ESTIMATE NORMAL
== END 2018-06-03 23:59 | disposition home or self-care (01) ==
LOC: RAD 11:29
PROVIDERS: ATTEND Internal Medicine Cardiovascular Disease
DX: J44.9 Chronic obstructive pulmonary disease, unspecified (principal); I35.0 Nonrheumatic aortic (valve) stenosis; Z87.891 Personal history of nicotine dependence; Z79.899 Other long term (current) drug therapy
CPT/HCPCS: 36415; 71045; 80053; 85025

== ENCOUNTER 2018-06-23 13:56 | Inpatient (IN) | payer MEDICARE, MEDICAID ==
[~2018-06-23] VITALS: Ht 182.9 cm; Wt 65.2 kg
[2018-06-23] VITALS (7 sets, daily range): BP systolic 122–157; BP diastolic 48–68
[2018-06-23] MEDS ORDERED: ipratropium/albuterol 3ml nebule NEB ONE (14:20)
[2018-06-23] MEDS ORDERED: MULT-269 PO (14:47)
[2018-06-23] MEDS ORDERED: ASPI-1265 PO (14:47)
[2018-06-23] MEDS ORDERED: FAMO20TA8 PO (14:47)
[2018-06-23] MEDS ORDERED: ACET-3067 PO (14:47)
[2018-06-23] MEDS ORDERED: CLOP75TA33 PO (14:47)
[2018-06-23 14:52] LABS: BASOPHILS % (AUTO) 0.6 % (0-1); EOSINOPHILS # (AUTO) 0.2 X10'3 (0-0.9); EOSINOPHILS % (AUTO) 2.1 % (0-6); HEMOGLOBIN 8.1 g/dl (14.0-17.9); LYMPHOCYTES # (AUTO) 1.3 X10'3 (1.1-4.8); LYMPHOCYTES % (AUTO) 18.5 % (21-51); MEAN CORPUSCULAR HEMOGLOBIN 29.5 PG (27.0-31.0); MEAN CORPUSCULAR HGB CONC 32.2 % (33.0-36.5); MEAN CORPUSCULAR VOLUME 91.6 FL (78-98); MONOCYTES # (AUTO) 0.4 X10'3 (0-0.9); MONOCYTES % (AUTO) 6.2 % (2-12); NEUTROPHILS # (AUTO) 5.2 X10'3 (1.8-7.7); NEUTROPHILS % (AUTO) 72.6 % (42-75); PLATELET COUNT 229 X10'3 (140-440); RED BLOOD COUNT 2.73 X10'6 (4.70-6.10); RED CELL DISTRIBUTION WIDTH 22.1 % (11.5-14.5); WHITE BLOOD COUNT 7.2 X10'3 (4.5-11.0)
[2018-06-23 15:09] LABS: ALANINE AMINOTRANSFERASE 24 U/L (12-78); ALBUMIN 3.5 G/DL (3.4-5.0); ALBUMIN/GLOBULIN RATIO 1.1 (1.1-1.5); ALKALINE PHOSPHATASE 81 IU/L (46-116); ANION GAP 12 (8-16); ASPARTATE AMINO TRANSFERASE 22 U/L (10-37); BILIRUBIN,TOTAL 0.6 MG/DL (0.1-1.0); BLOOD UREA NITROGEN 57 MG/DL (7-18); BUN/CREATININE RATIO 41.9 (5.4-32.0); CALCIUM 8.8 MG/DL (8.5-10.1); CHLORIDE 111 MMOL/L (99-107); CREATININE 1.36 MG/DL (0.60-1.10); GLUCOSE 112 MG/DL (70-104); POTASSIUM 3.9 MMOL/L (3.5-5.1); SODIUM 145 MMOL/L (135-145); TOTAL CARBON DIOXIDE 22.3 MMOL/L (24-32); TOTAL PROTEIN 6.6 G/DL (6.4-8.2); eGFR 51 ML/MIN
[2018-06-23 15:15] LABS: PLATELET ESTIMATE NORMAL
[2018-06-23 15:16] LABS: ANISOCYTOSIS 3+; MICROCYTOSIS 1+
[2018-06-23 15:17] LABS: POLYCHROMASIA 1+
[2018-06-23] MEDS ORDERED: normal saline 1000ML IV soln IVB ONE (15:30)
[2018-06-23] MEDS ORDERED: iohexol 350MG/ML 100ml bottle IV ONE (15:34)
[2018-06-23 15:51] LABS: INR 1.1 INR
[2018-06-23] MEDS ORDERED: potassium Cl 40MEQ/NS 500ml 500 ML IV PRN ×2 (17:15)
[2018-06-23] MEDS ORDERED: magnesium hydroxide 30ml (MOM) UD suspension PO PRN (17:15)
[2018-06-23] MEDS ORDERED: ondansetron/PF 4mg/2ml inj IV PRN (17:15)
[2018-06-23] MEDS ORDERED: potassium Cl 20 mEq SR tablet PO PRN ×2 (17:15)
[2018-06-23] MEDS ORDERED: magnesium 1gm/100ml D5W IVPB 100 ML IV PRN (17:15)
[2018-06-23] MEDS ORDERED: mag hydrox/Alum hydrox/simeth 30ml oral suspension PO PRN (17:15)
[2018-06-23] MEDS ORDERED: magnesium 4gm in 100ml NS 100 ML IV PRN (17:15)
[2018-06-23] MEDS ORDERED: acetaminophen 325mg tablet PO PRN (17:15)
[2018-06-23] MEDS ORDERED: morphine 2 MG/ML inj. syringe IV PRN ×2 (17:15)
[2018-06-23] MEDS ORDERED: nitroGLYCERIN 0.4mg SUBLingual tab SL PRN (17:30)
[2018-06-23 19:12] LABS: BASOPHILS % (AUTO) 0.4 % (0-1); EOSINOPHILS # (AUTO) 0.1 X10'3 (0-0.9); LYMPHOCYTES # (AUTO) 0.9 X10'3 (1.1-4.8); LYMPHOCYTES % (AUTO) 22.9 % (21-51); MEAN CORPUSCULAR HEMOGLOBIN 29.4 PG (27.0-31.0); MEAN CORPUSCULAR HGB CONC 32.2 % (33.0-36.5); MEAN CORPUSCULAR VOLUME 91.3 FL (78-98); MEAN PLATELET VOLUME 7.5 FL (7.4-10.4); MONOCYTES # (AUTO) 0.3 X10'3 (0-0.9); MONOCYTES % (AUTO) 7.6 % (2-12); NEUTROPHILS # (AUTO) 2.6 X10'3 (1.8-7.7); NEUTROPHILS % (AUTO) 67.1 % (42-75); PLATELET COUNT 155 X10'3 (140-440); RED BLOOD COUNT 2.01 X10'6 (4.70-6.10); RED CELL DISTRIBUTION WIDTH 21.6 % (11.5-14.5); WHITE BLOOD COUNT 3.9 X10'3 (4.5-11.0)
[2018-06-23 19:20] LABS: HEMOGLOBIN 5.9 g/dl (14.0-17.9)
[2018-06-23 19:21] LABS: HEMATOCRIT 18.4 % (42.0-52.0)
[2018-06-23] MEDS: metoprolol tartrate 12.5mg (1/2 tablet) PO SCH (20:00)
[2018-06-23] MEDS: ipratropium/albuterol 3ml nebule NEB SCH (20:49)
[2018-06-23 22:40] LABS: LARGE PLATELETS FEW; PLATELET ESTIMATE NORMAL; POLYCHROMASIA 1+
[2018-06-23 22:41] LABS: ANISOCYTOSIS 3+; ELLIPTOCYTES FEW; HYPOCHROMASIA 2+; MICROCYTOSIS 2+; SCHISTOCYTES FEW; TEAR DROP CELLS FEW
[2018-06-23] MEDS: doxycycline inj 100 MG in normal saline 100ml IV soln 100 ML IV SCH (22:52)
[2018-06-23] MEDS: ferrous sulfate 325mg tablet PO SCH (22:59)
[2018-06-23] MEDS: famotidine 20mg tablet PO SCH (23:00)
[2018-06-23] MEDS: acetaminophen w/codeine (30MG) #3 tablet PO PRN (23:01)
[2018-06-23] MEDS: pantoprazole 40MG/NS 100ML BAG 100 ML IV SCH (23:06)
[2018-06-24] VITALS (9 sets, daily range): BP systolic 120–150; BP diastolic 59–77
[2018-06-24] MEDS: methylPREDNISolone sod succ/PF 40mg inj. IV SCH ×2 (00:47→07:21)
[2018-06-24 02:38] LABS: BASOPHILS % (AUTO) 0.5 % (0-1); EOSINOPHILS # (AUTO) 0.1 X10'3 (0-0.9); EOSINOPHILS % (AUTO) 2.6 % (0-6); HEMATOCRIT 23.8 % (42.0-52.0); LYMPHOCYTES # (AUTO) 0.6 X10'3 (1.1-4.8); LYMPHOCYTES % (AUTO) 16.4 % (21-51); MEAN CORPUSCULAR HEMOGLOBIN 30.2 PG (27.0-31.0); MEAN CORPUSCULAR HGB CONC 33.5 % (33.0-36.5); MEAN CORPUSCULAR VOLUME 90.1 FL (78-98); MEAN PLATELET VOLUME 7.8 FL (7.4-10.4); MONOCYTES # (AUTO) 0.2 X10'3 (0-0.9); MONOCYTES % (AUTO) 4.6 % (2-12); NEUTROPHILS # (AUTO) 2.8 X10'3 (1.8-7.7); NEUTROPHILS % (AUTO) 75.9 % (42-75); PLATELET COUNT 145 X10'3 (140-440); RED BLOOD COUNT 2.64 X10'6 (4.70-6.10); RED CELL DISTRIBUTION WIDTH 18.7 % (11.5-14.5); WHITE BLOOD COUNT 3.6 X10'3 (4.5-11.0)
[2018-06-24 02:57] LABS: ALANINE AMINOTRANSFERASE 19 U/L (12-78); ALBUMIN 2.8 G/DL (3.4-5.0); ALBUMIN/GLOBULIN RATIO 1.2 (1.1-1.5); ALKALINE PHOSPHATASE 70 IU/L (46-116); ANION GAP 13 (8-16); ASPARTATE AMINO TRANSFERASE 18 U/L (10-37); BILIRUBIN,TOTAL 1.4 MG/DL (0.1-1.0); BLOOD UREA NITROGEN 42 MG/DL (7-18); BUN/CREATININE RATIO 36.8 (5.4-32.0); CALCIUM 8.3 MG/DL (8.5-10.1); CHLORIDE 112 MMOL/L (99-107); CREATININE 1.14 MG/DL (0.60-1.10); GLUCOSE 102 MG/DL (70-104); POTASSIUM 3.7 MMOL/L (3.5-5.1); SODIUM 144 MMOL/L (135-145); TOTAL CARBON DIOXIDE 19.5 MMOL/L (24-32); TOTAL PROTEIN 5.2 G/DL (6.4-8.2); eGFR 63 ML/MIN
[2018-06-24 03:00] LABS: CHOL/HDL RATIO 3.1 (0.00-4.99); CHOLESTEROL 65 MG/DL (0-200); HDL CHOLESTEROL 21 MG/DL (35-60); LDL CHOLESTEROL 36 MG/DL (50-100); MAGNESIUM 1.7 MG/DL (1.5-2.4); TRIGLYCERIDES 87 MG/DL (20-135)
[2018-06-24] MEDS: pantoprazole 40MG/NS 100ML BAG 100 ML IV SCH ×5 (03:36→19:44)
[2018-06-24] MEDS: ferrous sulfate 325mg tablet PO SCH ×3 (07:22→21:21)
[2018-06-24] MEDS: atorvastatin 20mg tablet PO SCH (07:22)
[2018-06-24] MEDS: doxycycline inj 100 MG in normal saline 100ml IV soln 100 ML IV SCH (07:22)
[2018-06-24] MEDS: multivitamins, therapeutics tablet PO SCH (07:23)
[2018-06-24] MEDS: allopurinol 300 MG tablet PO SCH (07:23)
[2018-06-24] MEDS: metoprolol tartrate 12.5mg (1/2 tablet) PO SCH ×2 (07:23→19:52)
[2018-06-24] MEDS: famotidine 20mg tablet PO SCH (07:24)
[2018-06-24] MEDS: K and/or MAG REPLACEMENT MC SCH (07:24)
[2018-06-24] MEDS: ipratropium/albuterol 3ml nebule NEB SCH ×3 (08:20→21:16)
[2018-06-24 08:57] LABS: OCCULT BLOOD STOOL POSITIVE (Neg)
[2018-06-24] MEDS ORDERED: pneumococcal 23-VAL P-sac vacc 25 mcg/0.5ml vial IMVAC ONE (10:00)
[2018-06-24] MEDS ORDERED: fentaNYL/PF 50MCG/1 ML 2ML syringe ONE (14:04)
[2018-06-24] MEDS ORDERED: LIDOcaine Viscous 15ml cup ONE (14:04)
[2018-06-24] MEDS ORDERED: MIDAZolam 5mg/5ml vial ONE (14:04)
[2018-06-24] MEDS: CefTRIAXone/D5W-Rocephin 1gm 50 ML IV SCH (15:14)
[2018-06-24] MEDS: DOXYCYCLINE 100MG CAPSULE PO SCH (17:01)
[2018-06-24] MEDS: mineral oil/petrolatum ophthal oint EACHEYE SCH (19:52)
[2018-06-24] MEDS: acetaminophen w/codeine (30MG) #3 tablet PO PRN (19:53)
[2018-06-25] VITALS (17 sets, daily range): BP systolic 107–146; BP diastolic 58–78
[2018-06-25] MEDS: mineral oil/petrolatum ophthal oint EACHEYE SCH ×2 (01:25→08:00)
[2018-06-25] MEDS: pantoprazole 40MG/NS 100ML BAG 100 ML IV SCH ×5 (01:25→20:20)
[2018-06-25] MEDS: CefTRIAXone/D5W-Rocephin 1gm 50 ML IV SCH (07:33)
[2018-06-25 07:57] LABS: BASOPHILS % (AUTO) 0.4 % (0-1); EOSINOPHILS % (AUTO) 0.9 % (0-6); HEMATOCRIT 23.4 % (42.0-52.0); HEMOGLOBIN 7.7 g/dl (14.0-17.9); LYMPHOCYTES # (AUTO) 0.6 X10'3 (1.1-4.8); LYMPHOCYTES % (AUTO) 11.6 % (21-51); MEAN CORPUSCULAR HEMOGLOBIN 30.2 PG (27.0-31.0); MEAN CORPUSCULAR VOLUME 91.7 FL (78-98); MEAN PLATELET VOLUME 7.9 FL (7.4-10.4); MONOCYTES # (AUTO) 0.3 X10'3 (0-0.9); MONOCYTES % (AUTO) 6.8 % (2-12); NEUTROPHILS # (AUTO) 3.9 X10'3 (1.8-7.7); NEUTROPHILS % (AUTO) 80.3 % (42-75); PLATELET COUNT 142 X10'3 (140-440); RED BLOOD COUNT 2.56 X10'6 (4.70-6.10); RED CELL DISTRIBUTION WIDTH 20.9 % (11.5-14.5); WHITE BLOOD COUNT 4.9 X10'3 (4.5-11.0)
[2018-06-25] MEDS: metoprolol tartrate 12.5mg (1/2 tablet) PO SCH ×2 (08:00→20:13)
[2018-06-25] MEDS: atorvastatin 20mg tablet PO SCH (08:00)
[2018-06-25] MEDS: K and/or MAG REPLACEMENT MC SCH (08:00)
[2018-06-25] MEDS ORDERED: methylPREDNISolone sod succ/PF 40mg inj. IV SCH (08:00)
[2018-06-25] MEDS: ferrous sulfate 325mg tablet PO SCH ×3 (08:00→20:15)
[2018-06-25] MEDS: multivitamins, therapeutics tablet PO SCH (08:00)
[2018-06-25] MEDS: allopurinol 300 MG tablet PO SCH (08:00)
[2018-06-25 08:20] LABS: ALANINE AMINOTRANSFERASE 17 U/L (12-78); ALBUMIN 2.8 G/DL (3.4-5.0); ALBUMIN/GLOBULIN RATIO 1.1 (1.1-1.5); ALKALINE PHOSPHATASE 66 IU/L (46-116); ANION GAP 12 (8-16); ASPARTATE AMINO TRANSFERASE 15 U/L (10-37); BILIRUBIN,TOTAL 0.6 MG/DL (0.1-1.0); BLOOD UREA NITROGEN 32 MG/DL (7-18); BUN/CREATININE RATIO 23.5 (5.4-32.0); CALCIUM 8.4 MG/DL (8.5-10.1); CHLORIDE 111 MMOL/L (99-107); CREATININE 1.36 MG/DL (0.60-1.10); GLUCOSE 98 MG/DL (70-104); MAGNESIUM 1.6 MG/DL (1.5-2.4); POTASSIUM 3.8 MMOL/L (3.5-5.1); SODIUM 144 MMOL/L (135-145); TOTAL CARBON DIOXIDE 21.1 MMOL/L (24-32); TOTAL PROTEIN 5.3 G/DL (6.4-8.2); eGFR 51 ML/MIN
[2018-06-25] MEDS: DOXYCYCLINE 100MG CAPSULE PO SCH ×2 (08:30→16:31)
[2018-06-25] MEDS: ipratropium/albuterol 3ml nebule NEB SCH ×3 (09:06→20:00)
[2018-06-25] MEDS ORDERED: MIDAZolam 5mg/5ml vial ONE (11:33)
[2018-06-25] MEDS ORDERED: fentaNYL/PF 50MCG/1 ML 2ML syringe ONE (11:33)
[2018-06-25] MEDS ORDERED: LIDOcaine Viscous 15ml cup ONE (11:33)
[2018-06-25] MEDS: lactobacillus rhamnosus 10,000 MMU CELLS/CAPSULE PO SCH (20:14)
[2018-06-26 02:00] VITALS: BP 110/66
[2018-06-26] MEDS: pantoprazole 40MG/NS 100ML BAG 100 ML IV SCH ×3 (02:05→11:11)
[2018-06-26 05:01] LABS: BASOPHILS % (AUTO) 0.5 % (0-1); EOSINOPHILS # (AUTO) 0.1 X10'3 (0-0.9); EOSINOPHILS % (AUTO) 2.7 % (0-6); HEMATOCRIT 23.9 % (42.0-52.0); HEMOGLOBIN 7.8 g/dl (14.0-17.9); LYMPHOCYTES # (AUTO) 0.6 X10'3 (1.1-4.8); LYMPHOCYTES % (AUTO) 14.9 % (21-51); MEAN CORPUSCULAR HEMOGLOBIN 30.2 PG (27.0-31.0); MEAN CORPUSCULAR HGB CONC 32.8 % (33.0-36.5); MEAN PLATELET VOLUME 8.1 FL (7.4-10.4); MONOCYTES # (AUTO) 0.4 X10'3 (0-0.9); MONOCYTES % (AUTO) 8.3 % (2-12); NEUTROPHILS # (AUTO) 3.2 X10'3 (1.8-7.7); NEUTROPHILS % (AUTO) 73.6 % (42-75); PLATELET COUNT 133 X10'3 (140-440); RED BLOOD COUNT 2.59 X10'6 (4.70-6.10); RED CELL DISTRIBUTION WIDTH 21.3 % (11.5-14.5); WHITE BLOOD COUNT 4.3 X10'3 (4.5-11.0)
[2018-06-26 05:32] LABS: ALANINE AMINOTRANSFERASE 21 U/L (12-78); ALBUMIN 2.8 G/DL (3.4-5.0); ALBUMIN/GLOBULIN RATIO 1.2 (1.1-1.5); ALKALINE PHOSPHATASE 60 IU/L (46-116); ANION GAP 10 (8-16); ASPARTATE AMINO TRANSFERASE 17 U/L (10-37); BILIRUBIN,TOTAL 0.5 MG/DL (0.1-1.0); BLOOD UREA NITROGEN 31 MG/DL (7-18); BUN/CREATININE RATIO 21.4 (5.4-32.0); CALCIUM 8.3 MG/DL (8.5-10.1); CHLORIDE 113 MMOL/L (99-107); CREATININE 1.45 MG/DL (0.60-1.10); GLUCOSE 92 MG/DL (70-104); MAGNESIUM 1.6 MG/DL (1.5-2.4); POTASSIUM 4.3 MMOL/L (3.5-5.1); SODIUM 145 MMOL/L (135-145); TOTAL CARBON DIOXIDE 22.4 MMOL/L (24-32); TOTAL PROTEIN 5.1 G/DL (6.4-8.2); eGFR 47 ML/MIN
[2018-06-26 06:31] LABS: ANISOCYTOSIS 3+; PLATELET ESTIMATE DECREASED
[2018-06-26 06:32] LABS: POIKILOCYTOSIS 1+
[2018-06-26] MEDS: ipratropium/albuterol 3ml nebule NEB SCH (07:04)
[2018-06-26 08:00] VITALS: BP 134/66
[2018-06-26] MEDS: K and/or MAG REPLACEMENT MC SCH (08:00)
[2018-06-26] MEDS: lactobacillus rhamnosus 10,000 MMU CELLS/CAPSULE PO SCH (08:29)
[2018-06-26] MEDS: multivitamins, therapeutics tablet PO SCH (08:29)
[2018-06-26] MEDS: allopurinol 300 MG tablet PO SCH (08:29)
[2018-06-26] MEDS: atorvastatin 20mg tablet PO SCH (08:29)
[2018-06-26] MEDS: ferrous sulfate 325mg tablet PO SCH (08:29)
[2018-06-26] MEDS: DOXYCYCLINE 100MG CAPSULE PO SCH (08:29)
[2018-06-26] MEDS: metoprolol tartrate 12.5mg (1/2 tablet) PO SCH (08:30)
[2018-06-26] MEDS: CefTRIAXone/D5W-Rocephin 1gm 50 ML IV SCH (08:31)
[2018-06-26 11:00] VITALS: BP 125/64
[2018-06-26 11:53] VITALS: BP 125/64
[2018-06-26] MEDS ORDERED: PANT-47 PO (14:10)
[2018-06-26] MEDS ORDERED: LEVO500T89 PO (14:22)
[2018-06-26 15:00] VITALS: BP 129/69
== END 2018-06-26 18:09 | disposition home health service (06) | DRG 377 ==
LOC: ER 13:56 → ED HOLD 17:13 → PCU 3S 20:01
PROVIDERS: ADMIT Family Medicine; ATTEND Family Medicine
PROC: 30233N1 Transfusion of Nonautologous Red Blood Cells into Peripheral Vein, Percutaneous Approach (ICD-10-PCS; 2018-06-23)
PROC: B32T1ZZ Computerized Tomography (CT Scan) of Left Pulmonary Artery using Low Osmolar Contrast (ICD-10-PCS; 2018-06-23)
PROC: B3201ZZ Computerized Tomography (CT Scan) of Thoracic Aorta using Low Osmolar Contrast (ICD-10-PCS; 2018-06-23)
PROC: B32S1ZZ Computerized Tomography (CT Scan) of Right Pulmonary Artery using Low Osmolar Contrast (ICD-10-PCS; 2018-06-23)
PROC: 3E02340 Introduction of Influenza Vaccine into Muscle, Percutaneous Approach (ICD-10-PCS; 2018-06-24)
PROC: 3E0234Z Introduction of Serum, Toxoid and Vaccine into Muscle, Percutaneous Approach (ICD-10-PCS; 2018-06-24)
PROC: 0D598ZZ Destruction of Duodenum, Via Natural or Artificial Opening Endoscopic (ICD-10-PCS; principal; 2018-06-25)
PROC: 5A09357 Assistance with Respiratory Ventilation, Less than 24 Consecutive Hours, Continuous Positive Airway Pressure (ICD-10-PCS; 2018-06-26)
DX: K31.811 Angiodysplasia of stomach and duodenum with bleeding (principal); J96.20 Acute and chronic respiratory failure, unspecified whether with hypoxia or hypercapnia; J18.1 Lobar pneumonia, unspecified organism; D62 Acute posthemorrhagic anemia; J44.0 Chronic obstructive pulmonary disease with (acute) lower respiratory infection; I11.0 Hypertensive heart disease with heart failure; I25.119 Atherosclerotic heart disease of native coronary artery with unspecified angina pectoris; I48.91 Unspecified atrial fibrillation; I50.9 Heart failure, unspecified; B19.20 Unspecified viral hepatitis C without hepatic coma; K29.70 Gastritis, unspecified, without bleeding; M10.9 Gout, unspecified; M19.90 Unspecified osteoarthritis, unspecified site; R74.8 Abnormal levels of other serum enzymes; Z23 Encounter for immunization; Z56.0 Unemployment, unspecified; Z90.81 Acquired absence of spleen; Z95.2 Presence of prosthetic heart valve; Z95.5 Presence of coronary angioplasty implant and graft; Z99.81 Dependence on supplemental oxygen; Z88.0 Allergy status to penicillin; Z88.8 Allergy status to other drugs, medicaments and biological substances; Z79.82 Long term (current) use of aspirin; Z79.01 Long term (current) use of anticoagulants; Z87.11 Personal history of peptic ulcer disease; Z83.3 Family history of diabetes mellitus; Z80.0 Family history of malignant neoplasm of digestive organs; Z82.0 Family history of epilepsy and other diseases of the nervous system
CPT/HCPCS: 36415; 36430; 71046; 71275; 80053; 80061; 82272; 83735; 83880; 84484; 85025; 85610; 86870; 86885; 86900; 86901; 86902; 86905; 86922; 87070; 93005; 94640; 94760; 96360; 99152; 99285; A4620; C9113; G0378; J0696; J2250; J2920; J3010; J3490; J7030; P9016; Q9967

== ENCOUNTER 2018-07-05 19:09 | Inpatient (IN) | payer MEDICARE, MEDICAID ==
[~2018-07-05] VITALS: Ht 182.9 cm; Wt 65.0 kg
[~2018-07-05 19:09] MED LIST changes: +ACET-3067 PO; -LISI-604 PO; +MULT-269 PO
[2018-07-05 19:50] LABS: INR 1.1 INR; PROTHROMBIN TIME 11.2 SECONDS (9.0-12.0)
[2018-07-05 19:51] LABS: PARTIAL THROMBOPLASTIN TIME 28 SECONDS (22-32)
[2018-07-05 19:52] LABS: ALANINE AMINOTRANSFERASE 25 U/L (12-78); ALBUMIN 3.3 G/DL (3.4-5.0); ALBUMIN/GLOBULIN RATIO 1.1 (1.1-1.5); ALKALINE PHOSPHATASE 83 IU/L (46-116); ANION GAP 13 (8-16); ASPARTATE AMINO TRANSFERASE 25 U/L (10-37); BILIRUBIN,TOTAL 0.5 MG/DL (0.1-1.0); BLOOD UREA NITROGEN 18 MG/DL (7-18); BUN/CREATININE RATIO 11.6 (5.4-32.0); CALCIUM 8.3 MG/DL (8.5-10.1); CHLORIDE 104 MMOL/L (99-107); CREATININE 1.55 MG/DL (0.60-1.10); GLUCOSE 159 MG/DL (70-104); POTASSIUM 3.3 MMOL/L (3.5-5.1); SODIUM 139 MMOL/L (135-145); TOTAL CARBON DIOXIDE 22.2 MMOL/L (24-32); TOTAL PROTEIN 6.3 G/DL (6.4-8.2); eGFR 44 ML/MIN
[2018-07-05] MEDS ORDERED: PANT-47 PO (19:52)
[2018-07-05] MEDS ORDERED: NITR0.4T51 SL (19:53)
[2018-07-05] MEDS ORDERED: METO25TA6 PO (19:54)
[2018-07-05 20:06] LABS: BASOPHILS % (AUTO) 0 % (0-1); EOSINOPHILS # (AUTO) 0.2 X10'3 (0-0.9); EOSINOPHILS % (AUTO) 1.4 % (0-6); HEMATOCRIT 34.1 % (42.0-52.0); LYMPHOCYTES # (AUTO) 0.5 X10'3 (1.1-4.8); LYMPHOCYTES % (AUTO) 3.8 % (21-51); MEAN CORPUSCULAR HEMOGLOBIN 29.7 PG (27.0-31.0); MEAN CORPUSCULAR HGB CONC 32.2 % (33.0-36.5); MEAN CORPUSCULAR VOLUME 92.2 FL (78-98); MEAN PLATELET VOLUME 8.9 FL (7.4-10.4); MONOCYTES # (AUTO) 0.9 X10'3 (0-0.9); MONOCYTES % (AUTO) 7.5 % (2-12); NEUTROPHILS # (AUTO) 10.6 X10'3 (1.8-7.7); NEUTROPHILS % (AUTO) 87.3 % (42-75); PLATELET COUNT 118 X10'3 (140-440); RED CELL DISTRIBUTION WIDTH 19.2 % (11.5-14.5); WHITE BLOOD COUNT 12.2 X10'3 (4.5-11.0)
[2018-07-05] MEDS ORDERED: temazepam 15mg capsule PO PRN (21:00)
[2018-07-05] MEDS ORDERED: normal saline 1000ml 1,000 ML IV ONE ×3 (21:20→21:21)
[2018-07-05] MEDS ORDERED: albuterol 2.5 MG/3 ML nebule NEB ONE (21:25)
[2018-07-05] MEDS ORDERED: azithromycin/NS 500mg/250ml 250 ML IV ONE (21:25)
[2018-07-05] MEDS ORDERED: cefepime 1GM/NS ADD-VANTAGE 100 ML IV ONE (21:25)
[2018-07-05 22:04] LABS: MAGNESIUM 1.3 MG/DL (1.5-2.4)
[2018-07-05 22:20] LABS: TOTAL CELLS COUNTED 100
[2018-07-05 22:21] LABS: PLATELET ESTIMATE DECREASED
[2018-07-05 22:23] LABS: ANISOCYTOSIS 2+; ELLIPTOCYTES FEW; TEAR DROP CELLS FEW
[2018-07-05 22:47] LABS: CLARITY,URINE CLEAR (Clear); COLOR,URINE YELLOW (Yellow); GLUCOSE, URINE NEGATIVE (Neg); KETONES,URINE NEGATIVE (Neg); LEUKOCYTE ESTERASE ,URINE NEGATIVE (Neg); NITRITES, URINE NEGATIVE (Neg); OCCULT BLOOD,URINE NEGATIVE (Neg); PROTEIN,URINE 30 mg/dl (Neg); UROBILINOGEN,URINE 0.2 E.U/dL (0.2-1.0)
[2018-07-05] MEDS ORDERED: metoclopramide 5 mg/ml inj IV PRN (23:00)
[2018-07-05] MEDS ORDERED: potassium Cl 20 mEq SR tablet PO PRN (23:00)
[2018-07-05] MEDS ORDERED: diphenhydrAMINE 50 mg/ml inj IV PRN (23:00)
[2018-07-05] MEDS ORDERED: acetaminophen 650mg rectal suppository RC PRN (23:00)
[2018-07-05] MEDS ORDERED: morphine 2 MG/ML inj. syringe IV PRN (23:00)
[2018-07-05] MEDS ORDERED: ondansetron/PF 4mg/2ml inj IV PRN (23:00)
[2018-07-05] MEDS ORDERED: acetaminophen 325mg tablet PO PRN ×2 (23:00)
[2018-07-05] MEDS ORDERED: HYDROcodone/acetaminophen 10/325mg tab PO PRN (23:00)
[2018-07-05] MEDS ORDERED: HYDROmorphone 1 mg/ml syringe IV PRN (23:00)
[2018-07-05] MEDS ORDERED: diphenhydrAMINE 25mg capsule PO PRN (23:00)
[2018-07-05] MEDS ORDERED: magnesium hydroxide 30ml (MOM) UD suspension PO PRN (23:00)
[2018-07-05] MEDS ORDERED: bisacodyl 10mg suppository rectal RC PRN (23:00)
[2018-07-05] MEDS ORDERED: mag hydrox/Alum hydrox/simeth 30ml oral suspension PO PRN (23:00)
[2018-07-05 23:02] LABS: UA COLLECTION TYPE CLN CATCH MIDSTREAM
[2018-07-05 23:06] LABS: RBC,URINE 0-2 /HPF (0-2); WBC,URINE 0-4 /HPF (0-4)
[2018-07-05 23:07] LABS: BACTERIA,URINE NONE SEEN /HPF (Neg); HYALINE CASTS 0-3 /LPF (NEGATIVE); MUCUS STRANDS NONE SEEN /LPF (Neg); SQUAMOUS EPITHELIAL CELL,UR NONE SEEN /LPF (FEW)
[2018-07-05] MEDS ORDERED: nitroGLYCERIN 0.4mg SUBLingual tab SL PRN (23:25)
[2018-07-05 23:37] LABS: PHOSPHORUS 2.6 MG/DL (2.3-4.5)
[2018-07-06] MEDS: potassium Cl 20mEq in NS 1,000 ML IV SCH ×4 (00:18→23:39)
[2018-07-06] MEDS ORDERED: magnesium 4gm in 100ml NS 100 ML IV PRN (02:10)
[2018-07-06] MEDS ORDERED: aspirin 81mg tab.chew PO ONE (02:10)
[2018-07-06] MEDS ORDERED: magnesium Cl slow-release 64mg tablet PO PRN (02:10)
[2018-07-06] MEDS ORDERED: magnesium 2GM in 50ml NS 50 ML IV SCH (02:25)
[2018-07-06 04:30] VITALS: BP 135/77
[2018-07-06 06:43] LABS: BASOPHILS % (AUTO) 0.3 % (0-1); EOSINOPHILS # (AUTO) 0.2 X10'3 (0-0.9); EOSINOPHILS % (AUTO) 1.8 % (0-6); HEMATOCRIT 27.4 % (42.0-52.0); HEMOGLOBIN 8.8 g/dl (14.0-17.9); LYMPHOCYTES # (AUTO) 0.8 X10'3 (1.1-4.8); LYMPHOCYTES % (AUTO) 9.1 % (21-51); MEAN CORPUSCULAR HEMOGLOBIN 29.6 PG (27.0-31.0); MEAN CORPUSCULAR HGB CONC 32.1 % (33.0-36.5); MEAN CORPUSCULAR VOLUME 92.3 FL (78-98); MONOCYTES # (AUTO) 0.8 X10'3 (0-0.9); MONOCYTES % (AUTO) 8.1 % (2-12); NEUTROPHILS # (AUTO) 7.5 X10'3 (1.8-7.7); NEUTROPHILS % (AUTO) 80.7 % (42-75); PLATELET COUNT 89 X10'3 (140-440); RED BLOOD COUNT 2.97 X10'6 (4.70-6.10); WHITE BLOOD COUNT 9.3 X10'3 (4.5-11.0)
[2018-07-06 07:06] LABS: ALANINE AMINOTRANSFERASE 19 U/L (12-78); ALBUMIN 2.5 G/DL (3.4-5.0); ALKALINE PHOSPHATASE 66 IU/L (46-116); ANION GAP 10 (8-16); ASPARTATE AMINO TRANSFERASE 20 U/L (10-37); BILIRUBIN,TOTAL 0.7 MG/DL (0.1-1.0); BLOOD UREA NITROGEN 16 MG/DL (7-18); BUN/CREATININE RATIO 13.8 (5.4-32.0); CALCIUM 7.8 MG/DL (8.5-10.1); CHLORIDE 110 MMOL/L (99-107); CREATININE 1.16 MG/DL (0.60-1.10); GLUCOSE 109 MG/DL (70-104); POTASSIUM 3.4 MMOL/L (3.5-5.1); SODIUM 142 MMOL/L (135-145); TOTAL CARBON DIOXIDE 22.4 MMOL/L (24-32); TOTAL PROTEIN 4.9 G/DL (6.4-8.2); eGFR 61 ML/MIN
[2018-07-06 07:15] VITALS: BP 102/53
[2018-07-06] MEDS: K and/or MAG REPLACEMENT MC SCH (08:00)
[2018-07-06] MEDS ORDERED: levoFLOXACIN-Levaquin 750MG/D5 150 ML IV SCH (08:00)
[2018-07-06] MEDS ORDERED: heparin, porcine 5000 units/ml vial SQ SCH (08:00)
[2018-07-06] MEDS: metoprolol tartrate 25mg tablet PO SCH ×2 (08:46→20:20)
[2018-07-06] MEDS: ferrous sulfate 325mg tablet PO SCH ×3 (08:46→20:19)
[2018-07-06] MEDS: docusate sod 100mg capsule PO SCH ×2 (08:46→20:19)
[2018-07-06] MEDS: methylPREDNISolone sod succ 125mg/2ml vial IV SCH ×2 (08:48→20:19)
[2018-07-06] MEDS: pantoprazole 40mg Tablet.DR PO SCH (08:48)
[2018-07-06] MEDS: allopurinol 300 MG tablet PO SCH (08:49)
[2018-07-06] MEDS: atorvastatin 20mg tablet PO SCH (08:49)
[2018-07-06] MEDS: aspirin 81mg tab.chew PO SCH (08:49)
[2018-07-06 09:15] LABS: PLATELET ESTIMATE DECREASED
[2018-07-06 09:16] LABS: ANISOCYTOSIS 2+; POIKILOCYTOSIS FEW; TEAR DROP CELLS FEW
[2018-07-06 11:00] VITALS: BP 115/63
[2018-07-06] MEDS: potassium Cl 20 mEq SR tablet PO PRN ×2 (13:15→23:39)
[2018-07-06] MEDS: clindamycin 300mg/D5W 50mL 50 ML IV SCH ×2 (15:33→20:19)
[2018-07-06 19:00] VITALS: BP 143/78
[2018-07-07] VITALS: BP 161/75
[2018-07-07] MEDS: clindamycin 300mg/D5W 50mL 50 ML IV SCH ×4 (02:29→19:21)
[2018-07-07 06:22] LABS: BASOPHILS % (AUTO) 0 % (0-1); EOSINOPHILS % (AUTO) 0.8 % (0-6); HEMATOCRIT 28.8 % (42.0-52.0); HEMOGLOBIN 9.2 g/dl (14.0-17.9); LYMPHOCYTES # (AUTO) 0.4 X10'3 (1.1-4.8); LYMPHOCYTES % (AUTO) 7.4 % (21-51); MEAN CORPUSCULAR HEMOGLOBIN 29.6 PG (27.0-31.0); MEAN CORPUSCULAR VOLUME 92.5 FL (78-98); MEAN PLATELET VOLUME 9.3 FL (7.4-10.4); MONOCYTES # (AUTO) 0.2 X10'3 (0-0.9); MONOCYTES % (AUTO) 3.3 % (2-12); NEUTROPHILS # (AUTO) 5.1 X10'3 (1.8-7.7); NEUTROPHILS % (AUTO) 88.5 % (42-75); PLATELET COUNT 92 X10'3 (140-440); RED BLOOD COUNT 3.11 X10'6 (4.70-6.10); RED CELL DISTRIBUTION WIDTH 18.8 % (11.5-14.5); WHITE BLOOD COUNT 5.7 X10'3 (4.5-11.0)
[2018-07-07 06:37] LABS: ALANINE AMINOTRANSFERASE 46 U/L (12-78); ALBUMIN 2.7 G/DL (3.4-5.0); ALKALINE PHOSPHATASE 71 IU/L (46-116); ANION GAP 10 (8-16); ASPARTATE AMINO TRANSFERASE 43 U/L (10-37); BILIRUBIN,TOTAL 0.4 MG/DL (0.1-1.0); BLOOD UREA NITROGEN 19 MG/DL (7-18); BUN/CREATININE RATIO 16.2 (5.4-32.0); CALCIUM 8.4 MG/DL (8.5-10.1); CHLORIDE 111 MMOL/L (99-107); CREATININE 1.17 MG/DL (0.60-1.10); GLUCOSE 155 MG/DL (70-104); MAGNESIUM 1.7 MG/DL (1.5-2.4); POTASSIUM 4.6 MMOL/L (3.5-5.1); SODIUM 142 MMOL/L (135-145); TOTAL CARBON DIOXIDE 20.7 MMOL/L (24-32); TOTAL PROTEIN 5.4 G/DL (6.4-8.2); eGFR 61 ML/MIN
[2018-07-07 07:00] VITALS: BP 155/86
[2018-07-07] MEDS: K and/or MAG REPLACEMENT MC SCH (07:50)
[2018-07-07] MEDS: docusate sod 100mg capsule PO SCH ×2 (08:00→19:20)
[2018-07-07] MEDS: clopidogrel 75mg tablet PO SCH (08:00)
[2018-07-07] MEDS: aspirin 81mg tab.chew PO SCH (08:04)
[2018-07-07] MEDS: methylPREDNISolone sod succ 125mg/2ml vial IV SCH ×2 (08:41→19:21)
[2018-07-07] MEDS: atorvastatin 20mg tablet PO SCH (08:42)
[2018-07-07] MEDS: metoprolol tartrate 25mg tablet PO SCH ×2 (08:42→19:22)
[2018-07-07] MEDS: ferrous sulfate 325mg tablet PO SCH ×3 (08:42→20:25)
[2018-07-07] MEDS: pantoprazole 40mg Tablet.DR PO SCH (08:42)
[2018-07-07] MEDS: allopurinol 300 MG tablet PO SCH (08:44)
[2018-07-07 11:06] LABS: OCCULT BLOOD STOOL NEGATIVE (Neg)
[2018-07-07 12:09] VITALS: BP 159/78
[2018-07-07] MEDS: potassium Cl 20mEq in NS 1,000 ML IV SCH ×2 (13:06→23:51)
[2018-07-07 18:00] VITALS: BP 169/79
[2018-07-07] MEDS: lactobacillus rhamnosus 10,000 MMU CELLS/CAPSULE PO SCH (20:25)
[2018-07-08] VITALS: BP 162/94
[2018-07-08] MEDS: clindamycin 300mg/D5W 50mL 50 ML IV SCH ×3 (01:56→14:00)
[2018-07-08 06:09] LABS: ALANINE AMINOTRANSFERASE 76 U/L (12-78); ALBUMIN 2.7 G/DL (3.4-5.0); ALBUMIN/GLOBULIN RATIO 0.9 (1.1-1.5); ALKALINE PHOSPHATASE 85 IU/L (46-116); ANION GAP 8 (8-16); ASPARTATE AMINO TRANSFERASE 57 U/L (10-37); BILIRUBIN,TOTAL 0.4 MG/DL (0.1-1.0); BLOOD UREA NITROGEN 21 MG/DL (7-18); BUN/CREATININE RATIO 19.1 (5.4-32.0); CALCIUM 8.5 MG/DL (8.5-10.1); CHLORIDE 110 MMOL/L (99-107); GLUCOSE 140 MG/DL (70-104); MAGNESIUM 1.7 MG/DL (1.5-2.4); POTASSIUM 4.8 MMOL/L (3.5-5.1); SODIUM 139 MMOL/L (135-145); TOTAL CARBON DIOXIDE 20.7 MMOL/L (24-32); TOTAL PROTEIN 5.6 G/DL (6.4-8.2); eGFR 65 ML/MIN
[2018-07-08 06:24] LABS: BASOPHILS % (AUTO) 0.3 % (0-1); EOSINOPHILS # (AUTO) 0.1 X10'3 (0-0.9); EOSINOPHILS % (AUTO) 1.2 % (0-6); HEMATOCRIT 29.3 % (42.0-52.0); HEMOGLOBIN 9.4 g/dl (14.0-17.9); LYMPHOCYTES # (AUTO) 0.5 X10'3 (1.1-4.8); MEAN CORPUSCULAR HEMOGLOBIN 29.8 PG (27.0-31.0); MEAN CORPUSCULAR HGB CONC 32.1 % (33.0-36.5); MEAN CORPUSCULAR VOLUME 92.8 FL (78-98); MEAN PLATELET VOLUME 9.5 FL (7.4-10.4); MONOCYTES # (AUTO) 0.3 X10'3 (0-0.9); NEUTROPHILS # (AUTO) 7.3 X10'3 (1.8-7.7); NEUTROPHILS % (AUTO) 88.5 % (42-75); PLATELET COUNT 119 X10'3 (140-440); RED BLOOD COUNT 3.16 X10'6 (4.70-6.10); RED CELL DISTRIBUTION WIDTH 18.1 % (11.5-14.5); WHITE BLOOD COUNT 8.3 X10'3 (4.5-11.0)
[2018-07-08 07:00] VITALS: BP 170/81
[2018-07-08] MEDS: pantoprazole 40mg Tablet.DR PO SCH (07:55)
[2018-07-08] MEDS: clopidogrel 75mg tablet PO SCH (07:56)
[2018-07-08] MEDS: ferrous sulfate 325mg tablet PO SCH ×2 (07:57→12:13)
[2018-07-08] MEDS: aspirin 81mg tab.chew PO SCH (07:57)
[2018-07-08] MEDS: docusate sod 100mg capsule PO SCH (07:57)
[2018-07-08] MEDS: allopurinol 300 MG tablet PO SCH (07:58)
[2018-07-08] MEDS: lactobacillus rhamnosus 10,000 MMU CELLS/CAPSULE PO SCH (07:58)
[2018-07-08] MEDS: atorvastatin 20mg tablet PO SCH (07:58)
[2018-07-08] MEDS: metoprolol tartrate 25mg tablet PO SCH (08:00)
[2018-07-08] MEDS: K and/or MAG REPLACEMENT MC SCH (08:00)
[2018-07-08] MEDS: methylPREDNISolone sod succ 125mg/2ml vial IV SCH (08:05)
[2018-07-08 09:30] VITALS: BP 168/78
[2018-07-08 11:30] VITALS: BP 179/89
[2018-07-08] MEDS: potassium Cl 20mEq in NS 1,000 ML IV SCH (11:56)
[2018-07-08] MEDS ORDERED: furosemide 20 MG/2 ML vial IV ONE (12:05)
[2018-07-08 13:22] VITALS: BP 157/86
[2018-07-08] MEDS ORDERED: CLOP75TA35 PO (15:21)
[2018-07-08] MEDS ORDERED: ALBU6.7H INH (15:21)
[2018-07-08] MEDS ORDERED: CLIN-5 PO (15:21)
[2018-07-08] MEDS ORDERED: PRED10TA23 PO (15:21)
== END 2018-07-08 17:30 | disposition home health service (06) | DRG 871 ==
LOC: ER 19:10 → ED HOLD 22:56 → SUR 3N 07-06 03:20
PROVIDERS: ADMIT Family Medicine; ATTEND Internal Medicine
DX: A41.9 Sepsis, unspecified organism (principal); I21.A1 Myocardial infarction type 2; J18.1 Lobar pneumonia, unspecified organism; J44.0 Chronic obstructive pulmonary disease with (acute) lower respiratory infection; J44.1 Chronic obstructive pulmonary disease with (acute) exacerbation; D64.9 Anemia, unspecified; D69.6 Thrombocytopenia, unspecified; E83.42 Hypomagnesemia; B19.20 Unspecified viral hepatitis C without hepatic coma; M10.9 Gout, unspecified; M19.90 Unspecified osteoarthritis, unspecified site; E86.0 Dehydration; E87.6 Hypokalemia; I11.0 Hypertensive heart disease with heart failure; I25.10 Atherosclerotic heart disease of native coronary artery without angina pectoris; I50.9 Heart failure, unspecified; R09.02 Hypoxemia; Z90.81 Acquired absence of spleen; Z95.2 Presence of prosthetic heart valve; Z99.81 Dependence on supplemental oxygen; Z88.0 Allergy status to penicillin; Z88.8 Allergy status to other drugs, medicaments and biological substances; Z79.899 Other long term (current) drug therapy; Z79.02 Long term (current) use of antithrombotics/antiplatelets; Z87.11 Personal history of peptic ulcer disease; Z87.891 Personal history of nicotine dependence; Z83.3 Family history of diabetes mellitus; Z81.8 Family history of other mental and behavioral disorders; Z80.8 Family history of malignant neoplasm of other organs or systems
CPT/HCPCS: 36415; 71046; 80053; 81001; 82272; 83605; 83735; 83880; 84100; 84145; 84484; 85025; 85610; 85730; 87040; 87070; 93005; 93306; 94640; 94760; 96365; 96368; 99285; G0378; J0456; J0692; J1644; J1940; J1956; J2930; J3475; X5958

== ENCOUNTER 2018-07-14 13:27 | Emergency (ER) | payer MEDICARE, MEDICAID ==
[~2018-07-14] VITALS: Ht 182.9 cm; Wt 65.9 kg
[~2018-07-14 13:27] MED LIST changes: +ALBU6.7H INH; +CLIN-5 PO; +CLOP75TA35 PO; +PRED10TA23 PO
[2018-07-14 13:30] VITALS: BP 147/90
[2018-07-14] MEDS ORDERED: KEN0.1O TP (13:53)
== END 2018-07-14 14:03 | disposition home or self-care (01) ==
LOC: ER 13:28
DX: K13.0 Diseases of lips (principal); I25.10 Atherosclerotic heart disease of native coronary artery without angina pectoris; I11.0 Hypertensive heart disease with heart failure; I50.9 Heart failure, unspecified; J44.9 Chronic obstructive pulmonary disease, unspecified; M19.90 Unspecified osteoarthritis, unspecified site; M10.9 Gout, unspecified; Z98.61 Coronary angioplasty status; Z88.0 Allergy status to penicillin; Z88.8 Allergy status to other drugs, medicaments and biological substances; Z79.2 Long term (current) use of antibiotics; Z79.899 Other long term (current) drug therapy; Z56.0 Unemployment, unspecified
CPT/HCPCS: 99283

== ENCOUNTER 2018-07-22 19:18 | Emergency (ER) | payer MEDICARE, MEDICAID ==
[~2018-07-22] VITALS: Ht 182.9 cm; Wt 65.9 kg
[~2018-07-22 19:18] MED LIST changes: +KEN0.1O TP
== END 2018-07-22 21:07 | disposition home or self-care (01) ==
LOC: ER 19:18
DX: C46.9 Kaposi's sarcoma, unspecified (principal); I25.10 Atherosclerotic heart disease of native coronary artery without angina pectoris; I11.0 Hypertensive heart disease with heart failure; I50.9 Heart failure, unspecified; J44.9 Chronic obstructive pulmonary disease, unspecified; Z87.11 Personal history of peptic ulcer disease; Z86.19 Personal history of other infectious and parasitic diseases; M10.9 Gout, unspecified; Z90.81 Acquired absence of spleen; Z87.891 Personal history of nicotine dependence; Z56.0 Unemployment, unspecified; Z88.0 Allergy status to penicillin; Z88.8 Allergy status to other drugs, medicaments and biological substances; Z79.899 Other long term (current) drug therapy
CPT/HCPCS: 99281

== ENCOUNTER 2018-07-29 18:21 | Inpatient (IN) | payer MEDICARE, MEDICAID ==
[~2018-07-29] VITALS: Ht 182.9 cm; Wt 70.0 kg
[2018-07-29] MEDS ORDERED: aspirin 325mg tablet PO ONE ×2 (18:30→22:20)
[2018-07-29 19:03] LABS: BASOPHILS % (AUTO) 0.4 % (0-1); EOSINOPHILS # (AUTO) 0.1 X10'3 (0-0.9); EOSINOPHILS % (AUTO) 0.9 % (0-6); HEMATOCRIT 31.5 % (42.0-52.0); HEMOGLOBIN 10.1 g/dl (14.0-17.9); LYMPHOCYTES # (AUTO) 0.5 X10'3 (1.1-4.8); LYMPHOCYTES % (AUTO) 8.4 % (21-51); MEAN CORPUSCULAR HEMOGLOBIN 28.8 PG (27.0-31.0); MEAN CORPUSCULAR HGB CONC 32.1 % (33.0-36.5); MEAN CORPUSCULAR VOLUME 89.7 FL (78-98); MEAN PLATELET VOLUME 7.8 FL (7.4-10.4); MONOCYTES # (AUTO) 0.4 X10'3 (0-0.9); MONOCYTES % (AUTO) 5.5 % (2-12); NEUTROPHILS # (AUTO) 5.6 X10'3 (1.8-7.7); NEUTROPHILS % (AUTO) 84.8 % (42-75); PLATELET COUNT 169 X10'3 (140-440); RED BLOOD COUNT 3.51 X10'6 (4.70-6.10); RED CELL DISTRIBUTION WIDTH 17.1 % (11.5-14.5); WHITE BLOOD COUNT 6.6 X10'3 (4.5-11.0)
[2018-07-29 19:19] LABS: ALANINE AMINOTRANSFERASE 26 U/L (12-78); ALBUMIN 3.7 G/DL (3.4-5.0); ALBUMIN/GLOBULIN RATIO 1.3 (1.1-1.5); ALKALINE PHOSPHATASE 96 IU/L (46-116); ANION GAP 14 (8-16); ASPARTATE AMINO TRANSFERASE 25 U/L (10-37); BILIRUBIN,TOTAL 0.4 MG/DL (0.1-1.0); BLOOD UREA NITROGEN 21 MG/DL (7-18); BUN/CREATININE RATIO 16.4 (5.4-32.0); CALCIUM 8.8 MG/DL (8.5-10.1); CHLORIDE 109 MMOL/L (99-107); CREATININE 1.28 MG/DL (0.60-1.10); GLUCOSE 90 MG/DL (70-104); POTASSIUM 3.9 MMOL/L (3.5-5.1); SODIUM 146 MMOL/L (135-145); TOTAL CARBON DIOXIDE 22.6 MMOL/L (24-32); TOTAL PROTEIN 6.6 G/DL (6.4-8.2); eGFR 55 ML/MIN
[2018-07-29 19:21] LABS: D-DIMER 1.04 MG/L FEU (0-0.50); INR 1.1 INR; PARTIAL THROMBOPLASTIN TIME 27 SECONDS (22-32)
[2018-07-29] MEDS ORDERED: iohexol 350MG/ML 100ml bottle IV ONE (19:52)
[2018-07-29] MEDS ORDERED: levoFLOXACIN-Levaquin 750MG/D5 150 ML IV ONE (22:25)
[2018-07-29] MEDS ORDERED: ondansetron/PF 4mg/2ml inj IV PRN (23:55)
[2018-07-29] MEDS ORDERED: acetaminophen 325mg tablet PO PRN (23:55)
[2018-07-29] MEDS ORDERED: mag hydrox/Alum hydrox/simeth 30ml oral suspension PO PRN (23:55)
[2018-07-29] MEDS ORDERED: magnesium hydroxide 30ml (MOM) UD suspension PO PRN (23:55)
[2018-07-30] MEDS ORDERED: albuterol 2.5 MG/3 ML nebule NEB PRN
[2018-07-30] MEDS: normal saline 1000ml 1,000 ML IV SCH ×3 (00:21→12:07)
[2018-07-30 01:45] VITALS: BP 137/78
[2018-07-30] MEDS: temazepam 15mg capsule PO PRN (01:50)
[2018-07-30 06:44] LABS: BASOPHILS % (AUTO) 0.1 % (0-1); EOSINOPHILS # (AUTO) 0.1 X10'3 (0-0.9); EOSINOPHILS % (AUTO) 1.4 % (0-6); HEMATOCRIT 26.5 % (42.0-52.0); HEMOGLOBIN 8.5 g/dl (14.0-17.9); LYMPHOCYTES # (AUTO) 0.9 X10'3 (1.1-4.8); LYMPHOCYTES % (AUTO) 10.5 % (21-51); MEAN CORPUSCULAR HEMOGLOBIN 28.6 PG (27.0-31.0); MEAN CORPUSCULAR HGB CONC 32.2 % (33.0-36.5); MEAN CORPUSCULAR VOLUME 88.9 FL (78-98); MEAN PLATELET VOLUME 7.9 FL (7.4-10.4); MONOCYTES # (AUTO) 0.7 X10'3 (0-0.9); MONOCYTES % (AUTO) 7.9 % (2-12); NEUTROPHILS # (AUTO) 6.6 X10'3 (1.8-7.7); NEUTROPHILS % (AUTO) 80.1 % (42-75); PLATELET COUNT 136 X10'3 (140-440); RED BLOOD COUNT 2.98 X10'6 (4.70-6.10); RED CELL DISTRIBUTION WIDTH 16.3 % (11.5-14.5); WHITE BLOOD COUNT 8.3 X10'3 (4.5-11.0)
[2018-07-30 07:02] VITALS: BP 130/67
[2018-07-30 07:16] LABS: ALANINE AMINOTRANSFERASE 21 U/L (12-78); ALBUMIN 2.8 G/DL (3.4-5.0); ALBUMIN/GLOBULIN RATIO 1.1 (1.1-1.5); ALKALINE PHOSPHATASE 71 IU/L (46-116); ANION GAP 10 (8-16); ASPARTATE AMINO TRANSFERASE 16 U/L (10-37); BILIRUBIN,TOTAL 0.6 MG/DL (0.1-1.0); BLOOD UREA NITROGEN 20 MG/DL (7-18); BUN/CREATININE RATIO 15.3 (5.4-32.0); CALCIUM 8.2 MG/DL (8.5-10.1); CHLORIDE 106 MMOL/L (99-107); CREATININE 1.31 MG/DL (0.60-1.10); GLUCOSE 104 MG/DL (70-104); POTASSIUM 3.6 MMOL/L (3.5-5.1); SODIUM 139 MMOL/L (135-145); TOTAL CARBON DIOXIDE 23.1 MMOL/L (24-32); TOTAL PROTEIN 5.4 G/DL (6.4-8.2); eGFR 53 ML/MIN
[2018-07-30] MEDS: pantoprazole 40mg Tablet.DR PO SCH (07:42)
[2018-07-30] MEDS: allopurinol 300 MG tablet PO SCH (07:43)
[2018-07-30] MEDS: ferrous sulfate 325mg tablet PO SCH ×3 (07:43→20:14)
[2018-07-30] MEDS: metoprolol tartrate 25mg tablet PO SCH ×2 (07:43→20:15)
[2018-07-30] MEDS: atorvastatin 20mg tablet PO SCH (07:43)
[2018-07-30] MEDS: clopidogrel 75mg tablet PO SCH (07:43)
[2018-07-30] MEDS: heparin, porcine 5000 units/ml vial SQ SCH ×3 (07:45→20:16)
[2018-07-30] MEDS ORDERED: levoFLOXACIN-Levaquin 500mg/D5 100 ML IV SCH (08:00)
[2018-07-30] MEDS ORDERED: potassium Cl 20 mEq SR tablet PO PRN ×2 (08:45)
[2018-07-30] MEDS ORDERED: magnesium 4gm in 100ml NS 100 ML IV PRN (08:45)
[2018-07-30] MEDS ORDERED: potassium Cl 40MEQ/NS 500ml 500 ML IV PRN ×2 (08:45)
[2018-07-30] MEDS ORDERED: magnesium Cl slow-release 64mg tablet PO PRN (08:45)
[2018-07-30 11:00] VITALS: BP 107/41
[2018-07-30 12:03] LABS: HIV ANTIBODY 1&2 RAPID NON-REACTIVE (Neg)
[2018-07-30] MEDS: HYDROcodone/acetaminophen 5mg/325mg tablet PO PRN ×2 (13:19→20:14)
[2018-07-30 18:00] VITALS: BP 105/64
[2018-07-30] MEDS ORDERED: methylPREDNISolone sod succ 125mg/2ml vial IV ONE (18:05)
[2018-07-30] MEDS: ipratropium/albuterol 3ml nebule NEB SCH ×2 (19:45→23:34)
[2018-07-30] MEDS: methylPREDNISolone sod succ 125mg/2ml vial IV SCH (20:00)
[2018-07-30] MEDS: clindamycin 600mg/D5W 50ml 50 ML IV SCH (20:16)
[2018-07-30 22:00] VITALS: BP 123/60
[2018-07-31] MEDS: methylPREDNISolone sod succ 125mg/2ml vial IV SCH ×4 (01:56→20:32)
[2018-07-31] MEDS: clindamycin 600mg/D5W 50ml 50 ML IV SCH ×4 (01:56→20:32)
[2018-07-31] MEDS: ipratropium/albuterol 3ml nebule NEB SCH ×6 (02:31→23:52)
[2018-07-31] MEDS: normal saline 1000ml 1,000 ML IV SCH ×2 (05:53→20:00)
[2018-07-31 06:00] VITALS: BP 150/84
[2018-07-31 06:17] LABS: BASOPHILS % (AUTO) 0 % (0-1); EOSINOPHILS % (AUTO) 0.4 % (0-6); HEMATOCRIT 27.2 % (42.0-52.0); HEMOGLOBIN 8.9 g/dl (14.0-17.9); LYMPHOCYTES # (AUTO) 0.3 X10'3 (1.1-4.8); LYMPHOCYTES % (AUTO) 10.1 % (21-51); MEAN CORPUSCULAR HEMOGLOBIN 29.3 PG (27.0-31.0); MEAN CORPUSCULAR HGB CONC 32.9 % (33.0-36.5); MEAN CORPUSCULAR VOLUME 89.1 FL (78-98); MEAN PLATELET VOLUME 8.6 FL (7.4-10.4); MONOCYTES % (AUTO) 1.6 % (2-12); NEUTROPHILS # (AUTO) 2.5 X10'3 (1.8-7.7); NEUTROPHILS % (AUTO) 87.9 % (42-75); PLATELET COUNT 124 X10'3 (140-440); RED BLOOD COUNT 3.05 X10'6 (4.70-6.10); RED CELL DISTRIBUTION WIDTH 16.7 % (11.5-14.5); WHITE BLOOD COUNT 2.8 X10'3 (4.5-11.0)
[2018-07-31 06:18] LABS: ALANINE AMINOTRANSFERASE 23 U/L (12-78); ALBUMIN 2.9 G/DL (3.4-5.0); ALKALINE PHOSPHATASE 81 IU/L (46-116); ANION GAP 12 (8-16); ASPARTATE AMINO TRANSFERASE 19 U/L (10-37); BILIRUBIN,TOTAL 0.3 MG/DL (0.1-1.0); BLOOD UREA NITROGEN 17 MG/DL (7-18); BUN/CREATININE RATIO 13.8 (5.4-32.0); CALCIUM 8.7 MG/DL (8.5-10.1); CHLORIDE 108 MMOL/L (99-107); CREATININE 1.23 MG/DL (0.60-1.10); GLUCOSE 181 MG/DL (70-104); MAGNESIUM 1.7 MG/DL (1.5-2.4); PHOSPHORUS 3.5 MG/DL (2.3-4.5); POTASSIUM 4.7 MMOL/L (3.5-5.1); SODIUM 140 MMOL/L (135-145); TOTAL CARBON DIOXIDE 20.4 MMOL/L (24-32); TOTAL PROTEIN 5.8 G/DL (6.4-8.2); eGFR 57 ML/MIN
[2018-07-31 06:50] LABS: TOTAL CELLS COUNTED 100
[2018-07-31 06:52] LABS: ANISOCYTOSIS 1+; PLATELET ESTIMATE DECREASED
[2018-07-31 06:53] LABS: TEAR DROP CELLS FEW
[2018-07-31 06:55] LABS: ELLIPTOCYTES FEW; POIKILOCYTOSIS 1+
[2018-07-31] MEDS: heparin, porcine 5000 units/ml vial SQ SCH ×2 (08:00→20:00)
[2018-07-31 08:16] LABS: HBSAG SCREEN Negative (Negative); HEP B CORE AB, IGM Negative (Negative); HEPATITIS C ANTIBODY >11.0 s/co ratio (0.0-0.9)
[2018-07-31] MEDS: ferrous sulfate 325mg tablet PO SCH ×3 (08:25→20:32)
[2018-07-31] MEDS: pantoprazole 40mg Tablet.DR PO SCH (08:25)
[2018-07-31] MEDS: atorvastatin 20mg tablet PO SCH (08:25)
[2018-07-31] MEDS: metoprolol tartrate 25mg tablet PO SCH ×2 (08:25→20:38)
[2018-07-31] MEDS: allopurinol 300 MG tablet PO SCH (08:25)
[2018-07-31] MEDS: clopidogrel 75mg tablet PO SCH (08:25)
[2018-07-31 10:00] VITALS: BP 152/85
[2018-07-31] MEDS: levoFLOXACIN 250mg tablet PO SCH (11:33)
[2018-07-31 18:00] VITALS: BP 150/74
[2018-07-31] MEDS: temazepam 15mg capsule PO PRN (20:32)
[2018-07-31] MEDS: HYDROcodone/acetaminophen 5mg/325mg tablet PO PRN (20:40)
[2018-08-01] MEDS: clindamycin 600mg/D5W 50ml 50 ML IV SCH ×4 (01:49→20:00)
[2018-08-01] MEDS: methylPREDNISolone sod succ 125mg/2ml vial IV SCH ×4 (01:49→20:01)
[2018-08-01] MEDS: ipratropium/albuterol 3ml nebule NEB SCH ×6 (02:56→23:40)
[2018-08-01 06:00] VITALS: BP 131/60
[2018-08-01 07:33] LABS: BASOPHILS % (AUTO) 0 % (0-1); EOSINOPHILS # (AUTO) 0.1 X10'3 (0-0.9); EOSINOPHILS % (AUTO) 1.2 % (0-6); HEMATOCRIT 25.3 % (42.0-52.0); HEMOGLOBIN 8.1 g/dl (14.0-17.9); LYMPHOCYTES # (AUTO) 0.3 X10'3 (1.1-4.8); LYMPHOCYTES % (AUTO) 4.6 % (21-51); MEAN CORPUSCULAR HEMOGLOBIN 28.7 PG (27.0-31.0); MEAN CORPUSCULAR HGB CONC 32.2 % (33.0-36.5); MEAN CORPUSCULAR VOLUME 89.2 FL (78-98); MEAN PLATELET VOLUME 7.9 FL (7.4-10.4); MONOCYTES # (AUTO) 0.2 X10'3 (0-0.9); MONOCYTES % (AUTO) 2.7 % (2-12); NEUTROPHILS # (AUTO) 6.4 X10'3 (1.8-7.7); NEUTROPHILS % (AUTO) 91.5 % (42-75); PLATELET COUNT 160 X10'3 (140-440); RED BLOOD COUNT 2.84 X10'6 (4.70-6.10); RED CELL DISTRIBUTION WIDTH 16.8 % (11.5-14.5)
[2018-08-01 07:47] LABS: ALANINE AMINOTRANSFERASE 27 U/L (12-78); ALBUMIN 2.8 G/DL (3.4-5.0); ALKALINE PHOSPHATASE 66 IU/L (46-116); ANION GAP 13 (8-16); ASPARTATE AMINO TRANSFERASE 19 U/L (10-37); BILIRUBIN,TOTAL 0.2 MG/DL (0.1-1.0); BLOOD UREA NITROGEN 22 MG/DL (7-18); BUN/CREATININE RATIO 17.2 (5.4-32.0); CALCIUM 8.2 MG/DL (8.5-10.1); CHLORIDE 109 MMOL/L (99-107); CREATININE 1.28 MG/DL (0.60-1.10); GLUCOSE 166 MG/DL (70-104); MAGNESIUM 1.6 MG/DL (1.5-2.4); PHOSPHORUS 3.5 MG/DL (2.3-4.5); POTASSIUM 4.1 MMOL/L (3.5-5.1); SODIUM 142 MMOL/L (135-145); TOTAL CARBON DIOXIDE 20.2 MMOL/L (24-32); TOTAL PROTEIN 5.5 G/DL (6.4-8.2); eGFR 55 ML/MIN
[2018-08-01] MEDS: ferrous sulfate 325mg tablet PO SCH ×3 (07:47→20:00)
[2018-08-01] MEDS: metoprolol tartrate 25mg tablet PO SCH ×2 (07:47→20:01)
[2018-08-01] MEDS: atorvastatin 20mg tablet PO SCH (07:47)
[2018-08-01] MEDS: allopurinol 300 MG tablet PO SCH (07:48)
[2018-08-01] MEDS: clopidogrel 75mg tablet PO SCH (07:48)
[2018-08-01] MEDS: pantoprazole 40mg Tablet.DR PO SCH (07:48)
[2018-08-01] MEDS: heparin, porcine 5000 units/ml vial SQ SCH ×2 (07:53→20:00)
[2018-08-01 10:00] VITALS: BP 138/72
[2018-08-01] MEDS: levoFLOXACIN 250mg tablet PO SCH (11:33)
[2018-08-01] MEDS: furosemide 20 MG/2 ML vial IV SCH ×2 (12:09→20:00)
[2018-08-01] MEDS: HYDROcodone/acetaminophen 5mg/325mg tablet PO PRN ×2 (13:59→22:46)
[2018-08-01 18:00] VITALS: BP 165/94
[2018-08-01] MEDS: lactobacillus rhamnosus 10,000 MMU CELLS/CAPSULE PO SCH (20:00)
[2018-08-02] VITALS: BP 140/73
[2018-08-02] MEDS: methylPREDNISolone sod succ 125mg/2ml vial IV SCH ×2 (02:41→08:29)
[2018-08-02] MEDS: clindamycin 600mg/D5W 50ml 50 ML IV SCH ×2 (02:41→08:28)
[2018-08-02] MEDS: ipratropium/albuterol 3ml nebule NEB SCH ×2 (02:49→07:39)
[2018-08-02] MEDS: HYDROcodone/acetaminophen 5mg/325mg tablet PO PRN (02:50)
[2018-08-02 05:43] LABS: BASOPHILS % (AUTO) 0 % (0-1); EOSINOPHILS # (AUTO) 0.1 X10'3 (0-0.9); EOSINOPHILS % (AUTO) 1.1 % (0-6); HEMATOCRIT 24.9 % (42.0-52.0); HEMOGLOBIN 8.2 g/dl (14.0-17.9); LYMPHOCYTES # (AUTO) 0.4 X10'3 (1.1-4.8); LYMPHOCYTES % (AUTO) 5.8 % (21-51); MEAN CORPUSCULAR HEMOGLOBIN 29.7 PG (27.0-31.0); MEAN CORPUSCULAR VOLUME 89.8 FL (78-98); MEAN PLATELET VOLUME 8.4 FL (7.4-10.4); MONOCYTES # (AUTO) 0.2 X10'3 (0-0.9); MONOCYTES % (AUTO) 3.2 % (2-12); NEUTROPHILS # (AUTO) 5.7 X10'3 (1.8-7.7); NEUTROPHILS % (AUTO) 89.9 % (42-75); PLATELET COUNT 184 X10'3 (140-440); RED BLOOD COUNT 2.77 X10'6 (4.70-6.10); RED CELL DISTRIBUTION WIDTH 16.8 % (11.5-14.5); WHITE BLOOD COUNT 6.4 X10'3 (4.5-11.0)
[2018-08-02 06:19] LABS: ALANINE AMINOTRANSFERASE 27 U/L (12-78); ALBUMIN/GLOBULIN RATIO 1.1 (1.1-1.5); ALKALINE PHOSPHATASE 77 IU/L (46-116); ANION GAP 13 (8-16); ASPARTATE AMINO TRANSFERASE 22 U/L (10-37); BILIRUBIN,TOTAL 0.3 MG/DL (0.1-1.0); BLOOD UREA NITROGEN 33 MG/DL (7-18); BUN/CREATININE RATIO 24.1 (5.4-32.0); CALCIUM 8.9 MG/DL (8.5-10.1); CHLORIDE 106 MMOL/L (99-107); CREATININE 1.37 MG/DL (0.60-1.10); GLUCOSE 162 MG/DL (70-104); MAGNESIUM 1.5 MG/DL (1.5-2.4); POTASSIUM 4.3 MMOL/L (3.5-5.1); SODIUM 141 MMOL/L (135-145); TOTAL CARBON DIOXIDE 22.4 MMOL/L (24-32); TOTAL PROTEIN 5.8 G/DL (6.4-8.2); eGFR 51 ML/MIN
[2018-08-02 07:56] VITALS: BP 151/86
[2018-08-02] MEDS: heparin, porcine 5000 units/ml vial SQ SCH (08:00)
[2018-08-02] MEDS: furosemide 20 MG/2 ML vial IV SCH (08:00)
[2018-08-02] MEDS: lactobacillus rhamnosus 10,000 MMU CELLS/CAPSULE PO SCH (08:29)
[2018-08-02] MEDS: ferrous sulfate 325mg tablet PO SCH (08:29)
[2018-08-02] MEDS: clopidogrel 75mg tablet PO SCH (08:29)
[2018-08-02] MEDS: pantoprazole 40mg Tablet.DR PO SCH (08:29)
[2018-08-02] MEDS: allopurinol 300 MG tablet PO SCH (08:29)
[2018-08-02] MEDS: metoprolol tartrate 25mg tablet PO SCH (08:30)
[2018-08-02] MEDS: atorvastatin 20mg tablet PO SCH (08:30)
[2018-08-02] MEDS: levoFLOXACIN 250mg tablet PO SCH (10:09)
[2018-08-02] MEDS ORDERED: FURO-150 PO (10:20)
[2018-08-02] MEDS ORDERED: LEVO250T58 PO (10:20)
[2018-08-02 11:00] VITALS: BP 156/86
== END 2018-08-02 11:30 | disposition home or self-care (01) | DRG 871 ==
LOC: ER 18:22 → ED HOLD 23:53 → EDBEDREQ 07-30 00:48 → ORTHO 4S 07-30 01:15 → SUR 3N 08-01 22:20
PROVIDERS: ADMIT Internal Medicine; ATTEND Family Medicine
PROC: B32T1ZZ Computerized Tomography (CT Scan) of Left Pulmonary Artery using Low Osmolar Contrast (ICD-10-PCS; principal; 2018-07-29)
PROC: B3201ZZ Computerized Tomography (CT Scan) of Thoracic Aorta using Low Osmolar Contrast (ICD-10-PCS; 2018-07-29)
PROC: B32S1ZZ Computerized Tomography (CT Scan) of Right Pulmonary Artery using Low Osmolar Contrast (ICD-10-PCS; 2018-07-29)
DX: A41.9 Sepsis, unspecified organism (principal); J96.01 Acute respiratory failure with hypoxia; J69.0 Pneumonitis due to inhalation of food and vomit; J44.1 Chronic obstructive pulmonary disease with (acute) exacerbation; J44.0 Chronic obstructive pulmonary disease with (acute) lower respiratory infection; I13.0 Hypertensive heart and chronic kidney disease with heart failure and stage 1 through stage 4 chronic kidney disease, or unspecified chronic kidney disease; I71.2 Thoracic aortic aneurysm, without rupture; I25.10 Atherosclerotic heart disease of native coronary artery without angina pectoris; I50.9 Heart failure, unspecified; M10.9 Gout, unspecified; N18.3 Chronic kidney disease, stage 3 (moderate); B18.2 Chronic viral hepatitis C; E78.5 Hyperlipidemia, unspecified; I27.81 Cor pulmonale (chronic); Z90.81 Acquired absence of spleen; Z95.5 Presence of coronary angioplasty implant and graft; Z95.2 Presence of prosthetic heart valve; Z88.0 Allergy status to penicillin; Z88.8 Allergy status to other drugs, medicaments and biological substances; Z87.891 Personal history of nicotine dependence; Z85.01 Personal history of malignant neoplasm of esophagus; Z87.11 Personal history of peptic ulcer disease; Z83.3 Family history of diabetes mellitus; Z80.0 Family history of malignant neoplasm of digestive organs; Z81.8 Family history of other mental and behavioral disorders
CPT/HCPCS: 36415; 71045; 71275; 80053; 83605; 83735; 83880; 84100; 84145; 84484; 85025; 85379; 85610; 85730; 86703; 86705; 86706; 86803; 87040; 87070; 87340; 93005; 94640; 94760; 96365; 99285; G0378; J1644; J1940; J1956; J2930; J3490; J7030; Q9967

== ENCOUNTER 2018-08-09 21:01 | Inpatient (IN) | payer MEDICARE, MEDICAID ==
[~2018-08-09] VITALS: Ht 182.9 cm; Wt 63.5 kg
[~2018-08-09 21:01] MED LIST changes: -ACET-3067 PO; -CLIN-5 PO; +FURO-150 PO; -KEN0.1O TP; +LEVO250T58 PO; -NITR0.4T51 SL; -PRED10TA23 PO; +temazepam 15mg capsule PO PRN
[2018-08-09 21:33] LABS: BASOPHILS # (AUTO) 0.1 X10'3 (0-0.2); BASOPHILS % (AUTO) 0.6 % (0-1); EOSINOPHILS # (AUTO) 0.1 X10'3 (0-0.9); EOSINOPHILS % (AUTO) 0.3 % (0-6); HEMATOCRIT 34.7 % (42.0-52.0); HEMOGLOBIN 11.3 g/dl (14.0-17.9); LYMPHOCYTES # (AUTO) 0.8 X10'3 (1.1-4.8); LYMPHOCYTES % (AUTO) 4.3 % (21-51); MEAN CORPUSCULAR HEMOGLOBIN 29.2 PG (27.0-31.0); MEAN CORPUSCULAR HGB CONC 32.6 % (33.0-36.5); MEAN CORPUSCULAR VOLUME 89.6 FL (78-98); MEAN PLATELET VOLUME 8.3 FL (7.4-10.4); MONOCYTES # (AUTO) 0.9 X10'3 (0-0.9); MONOCYTES % (AUTO) 4.7 % (2-12); NEUTROPHILS # (AUTO) 16.8 X10'3 (1.8-7.7); NEUTROPHILS % (AUTO) 90.1 % (42-75); PLATELET COUNT 183 X10'3 (140-440); RED BLOOD COUNT 3.87 X10'6 (4.70-6.10); RED CELL DISTRIBUTION WIDTH 15.7 % (11.5-14.5); WHITE BLOOD COUNT 18.7 X10'3 (4.5-11.0)
[2018-08-09 21:50] LABS: ALANINE AMINOTRANSFERASE 25 U/L (12-78); ALBUMIN 3.5 G/DL (3.4-5.0); ALBUMIN/GLOBULIN RATIO 0.9 (1.1-1.5); ALKALINE PHOSPHATASE 100 IU/L (46-116); ANION GAP 14 (8-16); ASPARTATE AMINO TRANSFERASE 21 U/L (10-37); BILIRUBIN,TOTAL 0.8 MG/DL (0.1-1.0); BLOOD UREA NITROGEN 20 MG/DL (7-18); BUN/CREATININE RATIO 13.8 (5.4-32.0); CALCIUM 8.8 MG/DL (8.5-10.1); CHLORIDE 101 MMOL/L (99-107); CREATININE 1.45 MG/DL (0.60-1.10); GLUCOSE 113 MG/DL (70-104); POTASSIUM 3.9 MMOL/L (3.5-5.1); SODIUM 138 MMOL/L (135-145); TOTAL CARBON DIOXIDE 23.3 MMOL/L (24-32); TOTAL PROTEIN 7.2 G/DL (6.4-8.2); eGFR 47 ML/MIN
[2018-08-09] MEDS ORDERED: acetaminophen 325mg tablet PO ONE (21:50)
[2018-08-09] MEDS ORDERED: dexamethasone sod phosphate 10mg/ml inj IV STA ×2 (22:03→22:06)
[2018-08-09] MEDS ORDERED: DOXYCYCLINE 100MG CAPSULE PO STA ×2 (22:03→22:06)
[2018-08-09] MEDS ORDERED: ipratropium/albuterol 3ml nebule NEB ONE (22:10)
[2018-08-09] MEDS ORDERED: heparin 25,000 UNIT/250ml bag 250 ML IV SCH (22:13)
[2018-08-09] MEDS ORDERED: aspirin 81mg tab.chew PO ONE (22:15)
[2018-08-09] MEDS ORDERED: heparin 10,000 units/1 ML INJ IV ONE (22:15)
[2018-08-09] MEDS ORDERED: heparin 10,000 units/1 ML INJ IV PRN (22:15)
[2018-08-09 22:16] LABS: ANISOCYTOSIS 1+; ELLIPTOCYTES FEW; PLATELET ESTIMATE NORMAL; TEAR DROP CELLS FEW
[2018-08-09] MEDS ORDERED: vancomycin/NS 1 GM ADD-VANTAGE 250 ML IV ONE (22:20)
[2018-08-09] MEDS ORDERED: FAMO20TA8 PO (22:26)
[2018-08-09 22:29] LABS: INR 1.1 INR; PARTIAL THROMBOPLASTIN TIME 34 SECONDS (22-32); PROTHROMBIN TIME 10.9 SECONDS (9.0-12.0)
[2018-08-09 23:16] LABS: ABG BASE EXCESS 1.3 mmol/L (-2.0-3.0); ABG HCO3 23.3 mmol/L (22.0-26.0); ABG OXYGEN SATURATION 87.4 % (95-98); ABG PCO2 (T) 29.6 mmHg (35.0-48.0); ABG PH (T) 7.517 (7.350-7.450); ABG PO2 (T) 51.2 mmHg (83-108); ALLEN'S TEST Positive; FCOHb 0.6 % (0.5-1.5); FMetHb 0.2 % (0.3-1.12); FO2Hb 86.7 % (94-100); TOTAL HEMOGLOBIN 10.9 G/dl (14.0-18.0)
[2018-08-09] MEDS: normal saline 1000ml 1,000 ML IV SCH (23:31)
[2018-08-09] MEDS ORDERED: HYDROcodone/acetaminophen 10/325mg tab PO PRN (23:35)
[2018-08-09] MEDS ORDERED: HYDROmorphone 1 mg/ml syringe IV PRN (23:35)
[2018-08-09] MEDS ORDERED: ondansetron/PF 4mg/2ml inj IV PRN (23:35)
[2018-08-09] MEDS ORDERED: mag hydrox/Alum hydrox/simeth 30ml oral suspension PO PRN (23:35)
[2018-08-09] MEDS ORDERED: magnesium hydroxide 30ml (MOM) UD suspension PO PRN (23:35)
[2018-08-09] MEDS ORDERED: albuterol 2.5 MG/3 ML nebule NEB PRN (23:35)
[2018-08-09] MEDS ORDERED: acetaminophen 325mg tablet PO PRN ×2 (23:35)
[2018-08-09] MEDS ORDERED: morphine 4 MG/ML inj SYRINge IV PRN (23:35)
[2018-08-09] MEDS ORDERED: acetaminophen 650mg rectal suppository RC PRN (23:35)
[2018-08-09] MEDS ORDERED: diphenhydrAMINE 25mg capsule PO PRN (23:35)
[2018-08-09] MEDS ORDERED: diphenhydrAMINE 50 mg/ml inj IV PRN (23:35)
[2018-08-09] MEDS ORDERED: metoclopramide 5 mg/ml inj IV PRN (23:35)
[2018-08-10 00:57] LABS: CREATINE KINASE 51 U/L (39-308); LIPASE 136 U/L (73-393); MAGNESIUM 1.4 MG/DL (1.5-2.4); PHOSPHORUS 2.5 MG/DL (2.3-4.5)
[2018-08-10] MEDS ORDERED: magnesium 4gm in 100ml NS 100 ML IV PRN (03:40)
[2018-08-10] MEDS ORDERED: magnesium Cl slow-release 64mg tablet PO PRN (03:40)
[2018-08-10 07:57] LABS: BASOPHILS % (AUTO) 0.1 % (0-1); EOSINOPHILS % (AUTO) 0 % (0-6); HEMOGLOBIN 10.8 g/dl (14.0-17.9); LYMPHOCYTES # (AUTO) 0.5 X10'3 (1.1-4.8); LYMPHOCYTES % (AUTO) 4.5 % (21-51); MEAN CORPUSCULAR HEMOGLOBIN 29.3 PG (27.0-31.0); MEAN CORPUSCULAR HGB CONC 32.7 % (33.0-36.5); MEAN CORPUSCULAR VOLUME 89.6 FL (78-98); MEAN PLATELET VOLUME 8.6 FL (7.4-10.4); MONOCYTES # (AUTO) 0.2 X10'3 (0-0.9); MONOCYTES % (AUTO) 1.9 % (2-12); NEUTROPHILS # (AUTO) 9.9 X10'3 (1.8-7.7); NEUTROPHILS % (AUTO) 93.5 % (42-75); PLATELET COUNT 149 X10'3 (140-440); RED BLOOD COUNT 3.68 X10'6 (4.70-6.10); RED CELL DISTRIBUTION WIDTH 15.8 % (11.5-14.5); WHITE BLOOD COUNT 10.6 X10'3 (4.5-11.0)
[2018-08-10 08:12] LABS: ALANINE AMINOTRANSFERASE 23 U/L (12-78); ALBUMIN 3.3 G/DL (3.4-5.0); ALBUMIN/GLOBULIN RATIO 0.8 (1.1-1.5); ALKALINE PHOSPHATASE 88 IU/L (46-116); ANION GAP 14 (8-16); ASPARTATE AMINO TRANSFERASE 17 U/L (10-37); BILIRUBIN,TOTAL 0.7 MG/DL (0.1-1.0); BLOOD UREA NITROGEN 22 MG/DL (7-18); BUN/CREATININE RATIO 13.6 (5.4-32.0); CALCIUM 9.3 MG/DL (8.5-10.1); CHLORIDE 102 MMOL/L (99-107); CREATININE 1.62 MG/DL (0.60-1.10); GLUCOSE 182 MG/DL (70-104); POTASSIUM 4.2 MMOL/L (3.5-5.1); SODIUM 140 MMOL/L (135-145); TOTAL CARBON DIOXIDE 24.4 MMOL/L (24-32); TOTAL PROTEIN 7.2 G/DL (6.4-8.2); eGFR 42 ML/MIN
[2018-08-10] MEDS: normal saline 1000ml 1,000 ML IV SCH (08:19)
[2018-08-10] MEDS: doxycycline inj 100 MG in normal saline 100ml IV soln 100 ML IV SCH ×2 (08:21→20:48)
[2018-08-10] MEDS: docusate sod 100mg capsule PO SCH ×2 (08:31→20:00)
[2018-08-10] MEDS: aspirin 81mg tab.chew PO SCH (08:32)
[2018-08-10] MEDS: clopidogrel 75mg tablet PO SCH (08:32)
[2018-08-10] MEDS: atorvastatin 20mg tablet PO SCH (08:33)
[2018-08-10] MEDS: allopurinol 300 MG tablet PO SCH (08:33)
[2018-08-10] MEDS: metoprolol tartrate 12.5mg (1/2 tablet) PO SCH ×2 (08:37→20:56)
[2018-08-10] MEDS: famotidine 20mg tablet PO SCH (08:38)
[2018-08-10] MEDS: ferrous sulfate 325mg tablet PO SCH ×3 (08:38→20:49)
[2018-08-10] MEDS: furosemide 20MG tablet PO SCH (08:41)
[2018-08-10] MEDS: nitroGLYCERIN 0.1mg/hour patch TD SCH (10:11)
[2018-08-10 12:00] VITALS: BP 123/71
--- NOTE | 2018-08-10 12:02 | NUR ---
PT ARRIVED ON UNIT AT 1200 BY WANDA. PT ASSISTED INTO BED, ON 2L NC, ABX RUNNING, WITH NO SIGNS OF DISTRESS. PT BELONGING BAG ON SIDE TABLE. PT COMFORTABLE, BED LOCKED AND LOW, CALL LIGHT WITHIN REACH, WILL CONTINUE TO MONITOR. VS BEING TAKEN AT THIS TIME.
[2018-08-10 15:00] VITALS: BP 148/75
--- NOTE | 2018-08-10 16:43 | NUR ---
ONOFRE CATHETER DC'D NO COMPLICATIONS NOTED
[2018-08-10 18:00] VITALS: BP 159/91
--- NOTE | 2018-08-10 18:57 | NUR ---
Patient in room PCU 3012. I have received report from Art RN and Shaylee STAFFORD and had the opportunity to ask questions and assume patient care.
[2018-08-10] MEDS: lactobacillus rhamnosus 10,000 MMU CELLS/CAPSULE PO SCH (20:49)
[2018-08-10 22:00] VITALS: BP 159/91
[2018-08-10] MEDS ORDERED: vancomycin/NS 1 GM ADD-VANTAGE 250 ML IV SCH (23:00)
[2018-08-11 02:00] VITALS: BP 124/65
[2018-08-11 05:31] LABS: BASOPHILS % (AUTO) 0.1 % (0-1); EOSINOPHILS % (AUTO) 0.1 % (0-6); HEMATOCRIT 26.7 % (42.0-52.0); HEMOGLOBIN 9.1 g/dl (14.0-17.9); LYMPHOCYTES # (AUTO) 0.6 X10'3 (1.1-4.8); LYMPHOCYTES % (AUTO) 5.4 % (21-51); MEAN CORPUSCULAR HEMOGLOBIN 30.9 PG (27.0-31.0); MEAN CORPUSCULAR HGB CONC 34.2 % (33.0-36.5); MEAN CORPUSCULAR VOLUME 90.3 FL (78-98); MEAN PLATELET VOLUME 8.2 FL (7.4-10.4); MONOCYTES # (AUTO) 0.6 X10'3 (0-0.9); NEUTROPHILS # (AUTO) 9.4 X10'3 (1.8-7.7); NEUTROPHILS % (AUTO) 88.4 % (42-75); PLATELET COUNT 157 X10'3 (140-440); RED BLOOD COUNT 2.96 X10'6 (4.70-6.10); RED CELL DISTRIBUTION WIDTH 15.9 % (11.5-14.5); WHITE BLOOD COUNT 10.6 X10'3 (4.5-11.0)
[2018-08-11 05:42] LABS: ALANINE AMINOTRANSFERASE 21 U/L (12-78); ALBUMIN 2.8 G/DL (3.4-5.0); ALBUMIN/GLOBULIN RATIO 0.9 (1.1-1.5); ALKALINE PHOSPHATASE 79 IU/L (46-116); ANION GAP 12 (8-16); ASPARTATE AMINO TRANSFERASE 15 U/L (10-37); BILIRUBIN,TOTAL 0.4 MG/DL (0.1-1.0); BLOOD UREA NITROGEN 33 MG/DL (7-18); BUN/CREATININE RATIO 27.5 (5.4-32.0); CALCIUM 8.5 MG/DL (8.5-10.1); CHLORIDE 107 MMOL/L (99-107); GLUCOSE 127 MG/DL (70-104); MAGNESIUM 1.7 MG/DL (1.5-2.4); POTASSIUM 4.1 MMOL/L (3.5-5.1); SODIUM 140 MMOL/L (135-145); TOTAL CARBON DIOXIDE 21.5 MMOL/L (24-32); TOTAL PROTEIN 5.9 G/DL (6.4-8.2); eGFR 59 ML/MIN
[2018-08-11 06:00] VITALS: BP 139/69
--- NOTE | 2018-08-11 06:11 | NUR ---
Problems reprioritized. Patient report given, questions answered & plan of care reviewed with Mary STAFFORD.
--- NOTE | 2018-08-11 06:18 | NUR ---
Patient in room PCU 3012. I have received report from Kavita STAFFORD and had the opportunity to ask questions and assume patient care.
[2018-08-11] MEDS: CefTRIAXone/D5W-Rocephin 1gm 50 ML IV SCH (07:40)
[2018-08-11] MEDS: lactobacillus rhamnosus 10,000 MMU CELLS/CAPSULE PO SCH ×2 (07:41→21:43)
[2018-08-11] MEDS: ferrous sulfate 325mg tablet PO SCH ×3 (07:41→21:44)
[2018-08-11] MEDS: furosemide 20MG tablet PO SCH (07:41)
[2018-08-11] MEDS: metoprolol tartrate 12.5mg (1/2 tablet) PO SCH ×2 (07:41→21:43)
[2018-08-11] MEDS: atorvastatin 20mg tablet PO SCH (07:41)
[2018-08-11] MEDS: allopurinol 300 MG tablet PO SCH (07:42)
[2018-08-11] MEDS: famotidine 20mg tablet PO SCH (07:42)
[2018-08-11] MEDS: docusate sod 100mg capsule PO SCH ×2 (07:42→21:44)
[2018-08-11] MEDS: clopidogrel 75mg tablet PO SCH (07:42)
[2018-08-11] MEDS: doxycycline inj 100 MG in normal saline 100ml IV soln 100 ML IV SCH (09:12)
[2018-08-11] MEDS: nitroGLYCERIN 0.1mg/hour patch TD SCH (10:39)
[2018-08-11] MEDS: aspirin 81mg tab.chew PO SCH (10:39)
[2018-08-11 11:00] VITALS: BP 137/74
[2018-08-11 15:00] VITALS: BP 113/70
--- NOTE | 2018-08-11 15:32 | NUR ---
Patient in room PCU 3012. I have received report from NYDIA Hernandez and had the opportunity to ask questions and assume patient care.
--- NOTE | 2018-08-11 15:33 | NUR ---
Problems reprioritized. Patient report given, questions answered & plan of care reviewed with Anjum STAFFORD.
[2018-08-11] MEDS: DOXYCYCLINE 100MG CAPSULE PO SCH (17:36)
[2018-08-11 18:00] VITALS: BP 126/71
--- NOTE | 2018-08-11 18:20 | NUR ---
Problems reprioritized. Patient report given, questions answered & plan of care reviewed with NYDIA Gutierrez.
[2018-08-11 22:00] VITALS: BP 110/47
[2018-08-11] MEDS: normal saline 1000ml 1,000 ML IV SCH (23:31)
[2018-08-12 02:00] VITALS: BP 92/51
[2018-08-12 05:28] LABS: BASOPHILS % (AUTO) 0.3 % (0-1); EOSINOPHILS # (AUTO) 0.2 X10'3 (0-0.9); EOSINOPHILS % (AUTO) 1.4 % (0-6); HEMATOCRIT 24.8 % (42.0-52.0); HEMOGLOBIN 8.2 g/dl (14.0-17.9); LYMPHOCYTES # (AUTO) 1.2 X10'3 (1.1-4.8); LYMPHOCYTES % (AUTO) 10.2 % (21-51); MEAN CORPUSCULAR HEMOGLOBIN 29.7 PG (27.0-31.0); MEAN CORPUSCULAR VOLUME 89.9 FL (78-98); MONOCYTES # (AUTO) 0.8 X10'3 (0-0.9); MONOCYTES % (AUTO) 7.2 % (2-12); NEUTROPHILS # (AUTO) 9.1 X10'3 (1.8-7.7); NEUTROPHILS % (AUTO) 80.9 % (42-75); PLATELET COUNT 139 X10'3 (140-440); RED BLOOD COUNT 2.76 X10'6 (4.70-6.10); RED CELL DISTRIBUTION WIDTH 15.4 % (11.5-14.5); WHITE BLOOD COUNT 11.3 X10'3 (4.5-11.0)
[2018-08-12 06:01] LABS: ALANINE AMINOTRANSFERASE 21 U/L (12-78); ALBUMIN 2.5 G/DL (3.4-5.0); ALBUMIN/GLOBULIN RATIO 0.9 (1.1-1.5); ALKALINE PHOSPHATASE 72 IU/L (46-116); ANION GAP 13 (8-16); ASPARTATE AMINO TRANSFERASE 16 U/L (10-37); BILIRUBIN,TOTAL 0.3 MG/DL (0.1-1.0); BLOOD UREA NITROGEN 41 MG/DL (7-18); BUN/CREATININE RATIO 31.1 (5.4-32.0); CHLORIDE 108 MMOL/L (99-107); CREATININE 1.32 MG/DL (0.60-1.10); GLUCOSE 90 MG/DL (70-104); MAGNESIUM 1.4 MG/DL (1.5-2.4); POTASSIUM 3.9 MMOL/L (3.5-5.1); SODIUM 142 MMOL/L (135-145); TOTAL CARBON DIOXIDE 20.8 MMOL/L (24-32); TOTAL PROTEIN 5.3 G/DL (6.4-8.2); eGFR 53 ML/MIN
--- NOTE | 2018-08-12 06:43 | NUR ---
Problems reprioritized. Patient report given, questions answered & plan of care reviewed with Mary STAFFORD.
[2018-08-12 07:04] VITALS: BP 95/55
[2018-08-12] MEDS: atorvastatin 20mg tablet PO SCH (07:56)
[2018-08-12] MEDS: aspirin 81mg tab.chew PO SCH (07:56)
[2018-08-12] MEDS: allopurinol 300 MG tablet PO SCH (07:56)
[2018-08-12] MEDS: lactobacillus rhamnosus 10,000 MMU CELLS/CAPSULE PO SCH (07:56)
[2018-08-12] MEDS: DOXYCYCLINE 100MG CAPSULE PO SCH (07:56)
[2018-08-12] MEDS: metoprolol tartrate 12.5mg (1/2 tablet) PO SCH (07:57)
[2018-08-12] MEDS: clopidogrel 75mg tablet PO SCH (07:57)
[2018-08-12] MEDS: ferrous sulfate 325mg tablet PO SCH (07:57)
[2018-08-12] MEDS: furosemide 20MG tablet PO SCH (07:57)
[2018-08-12] MEDS: docusate sod 100mg capsule PO SCH (07:57)
[2018-08-12] MEDS: famotidine 20mg tablet PO SCH (07:57)
[2018-08-12] MEDS: CefTRIAXone/D5W-Rocephin 1gm 50 ML IV SCH (07:58)
[2018-08-12] MEDS: nitroGLYCERIN 0.1mg/hour patch TD SCH (07:58)
[2018-08-12] MEDS ORDERED: DOXY-224 PO (09:33)
[2018-08-12 11:00] VITALS: BP 106/65
[2018-08-12] MEDS ORDERED: VANCOMYCIN LEVEL IV ONE (22:30)
== END 2018-08-12 11:50 | disposition home or self-care (01) | DRG 871 ==
LOC: ER 21:01 → ED HOLD 23:31 → PCU 3S 08-10 12:15
PROVIDERS: ADMIT Family Medicine; ATTEND Family Medicine
DX: A41.9 Sepsis, unspecified organism (principal); I50.33 Acute on chronic diastolic (congestive) heart failure; J18.1 Lobar pneumonia, unspecified organism; E87.3 Alkalosis; I13.0 Hypertensive heart and chronic kidney disease with heart failure and stage 1 through stage 4 chronic kidney disease, or unspecified chronic kidney disease; J44.0 Chronic obstructive pulmonary disease with (acute) lower respiratory infection; J96.11 Chronic respiratory failure with hypoxia; N17.9 Acute kidney failure, unspecified; J44.1 Chronic obstructive pulmonary disease with (acute) exacerbation; B18.2 Chronic viral hepatitis C; E78.5 Hyperlipidemia, unspecified; N18.3 Chronic kidney disease, stage 3 (moderate); M10.9 Gout, unspecified; D64.9 Anemia, unspecified; I27.20 Pulmonary hypertension, unspecified; M19.90 Unspecified osteoarthritis, unspecified site; I25.10 Atherosclerotic heart disease of native coronary artery without angina pectoris; Z98.61 Coronary angioplasty status; Z90.81 Acquired absence of spleen; Z95.2 Presence of prosthetic heart valve; Z99.81 Dependence on supplemental oxygen; Z88.0 Allergy status to penicillin; Z88.8 Allergy status to other drugs, medicaments and biological substances; Z79.899 Other long term (current) drug therapy; Z87.891 Personal history of nicotine dependence; Z87.11 Personal history of peptic ulcer disease; Z81.1 Family history of alcohol abuse and dependence; Z83.3 Family history of diabetes mellitus; Z80.8 Family history of malignant neoplasm of other organs or systems
CPT/HCPCS: 36415; 36600; 71045; 80053; 82550; 82803; 83605; 83690; 83735; 83880; 84100; 84484; 85018; 85025; 85610; 85730; 87040; 87070; 87502; 87503; 93005; 94640; 94760; 96365; 96375; 99291; G0378; J0696; J1100; J1644; J3370; J3490; J7030

== ENCOUNTER 2018-08-23 12:22 | Inpatient (IN) | payer MEDICARE, MEDICAID | END 2018-08-25 11:17 | disposition home or self-care (01) | LOC: ER 12:22 → PCU 3S 08-24 19:30 → ED HOLD 16:14 ==

== ENCOUNTER 2018-09-12 09:59 | Inpatient (IN) | payer MEDICARE, MEDICAID | END 2018-09-14 12:03 | disposition home or self-care (01) | LOC: ER 09:59 → SUR 3N 09-13 09:00 → ED HOLD 18:08 → SUR 3N 20:40 ==

== ENCOUNTER 2018-10-02 14:50 | Outpatient (CLI) | payer MEDICARE, MEDICAID ==
[~2018-10-02 14:50] MED LIST changes: -ALBU6.7H INH; +CLOP75TA15 PO; -CLOP75TA35 PO; +FAMO20TA8 PO; -LEVO250T58 PO; -MULT-269 PO; +OMEP20CA10 PO; -PANT-47 PO; -temazepam 15mg capsule PO PRN
[2018-10-02 16:12] LABS: CLARITY,URINE CLEAR (Clear); COLOR,URINE YELLOW (Yellow); GLUCOSE, URINE NEGATIVE (Neg); KETONES,URINE NEGATIVE (Neg); LEUKOCYTE ESTERASE ,URINE SMALL (Neg); NITRITES, URINE POSITIVE (Neg); OCCULT BLOOD,URINE SMALL (Neg); PROTEIN,URINE 30 mg/dl (Neg); UROBILINOGEN,URINE 0.2 E.U/dL (0.2-1.0)
[2018-10-02 16:13] LABS: BASOPHILS % (AUTO) 0.6 % (0-1); EOSINOPHILS # (AUTO) 0.1 X10'3 (0-0.9); EOSINOPHILS % (AUTO) 2.5 % (0-6); LYMPHOCYTES # (AUTO) 0.7 X10'3 (1.1-4.8); LYMPHOCYTES % (AUTO) 12.9 % (21-51); MEAN CORPUSCULAR HEMOGLOBIN 24.6 PG (27.0-31.0); MEAN CORPUSCULAR HGB CONC 31.3 g/dL (33.0-36.5); MEAN CORPUSCULAR VOLUME 78.7 FL (78-98); MEAN PLATELET VOLUME 7.5 FL (7.4-10.4); MONOCYTES # (AUTO) 0.5 X10'3 (0-0.9); MONOCYTES % (AUTO) 9.7 % (2-12); NEUTROPHILS # (AUTO) 4.1 X10'3 (1.8-7.7); NEUTROPHILS % (AUTO) 74.3 % (42-75); PRE OP HEMATOCRIT 30.5 % (42.0-52.0); PRE OP PLATELET COUNT 207 X10'3 (140-440); RED BLOOD COUNT 3.88 X10'6 (4.70-6.10); RED CELL DISTRIBUTION WIDTH 17.5 % (11.5-14.5)
[2018-10-02 16:15] LABS: UA COLLECTION TYPE CLN CATCH MIDSTREAM
[2018-10-02 16:16] LABS: PRE OP HEMOGLOBIN 9.5 g/dL (14.0-17.9)
[2018-10-02 16:20] LABS: RBC,URINE 0-2 /HPF (0-2); WBC,URINE TNTC /HPF (0-4)
[2018-10-02 16:21] LABS: BACTERIA,URINE 4+ /HPF (Neg); SQUAMOUS EPITHELIAL CELL,UR FEW /LPF (FEW)
[2018-10-02 16:42] LABS: PRE OP INR 1.1 INR; PRE OP PROTIME 10.7 SECONDS (9.0-12.0)
[2018-10-02 17:23] LABS: ALBUMIN 3.3 G/DL (3.4-5.0); ALBUMIN/GLOBULIN RATIO 0.9 (1.1-1.5); ALKALINE PHOSPHATASE 119 IU/L (46-116); BLOOD UREA NITROGEN 24 MG/DL (7-18); BUN/CREATININE RATIO 21.1 (5.4-32.0); CALCIUM 8.9 MG/DL (8.5-10.1); CHLORIDE 108 MMOL/L (99-107); CREATININE 1.14 MG/DL (0.60-1.10); PRE OP ALT 21 U/L (30-65); PRE OP ANION GAP 11 (8-16); PRE OP AST 21 U/L (10-37); PRE OP BILIRUB, TOTAL 0.4 MG/DL (0.0-1.0); PRE OP GLUCOSE 95 MG/DL (70-104); PRE OP SODIUM 143 MMOL/L (135-145); TOTAL CARBON DIOXIDE 23.7 MMOL/L (24-32); TOTAL PROTEIN 6.8 G/DL (6.4-8.2); eGFR 62 ML/MIN
== END 2018-10-02 23:59 | disposition home or self-care (01) ==
LOC: PRE-OP 14:50 → EDSTATUS 10-08 08:00
PROVIDERS: ATTEND Surgery
DX: Z01.812 Encounter for preprocedural laboratory examination (principal); R19.8 Other specified symptoms and signs involving the digestive system and abdomen; I50.9 Heart failure, unspecified; I25.10 Atherosclerotic heart disease of native coronary artery without angina pectoris; N18.3 Chronic kidney disease, stage 3 (moderate); J44.9 Chronic obstructive pulmonary disease, unspecified
CPT/HCPCS: 36415; 80053; 81001; 85025; 85610; 85730; 87077; 87088; 87186; 93005

== ENCOUNTER 2018-10-22 06:58 | Day surgery (SDC) | payer MEDICARE, MEDICAID ==
[~2018-10-22] VITALS: Ht 182.9 cm; Wt 62.2 kg
[2018-10-22] VITALS (15 sets, daily range): BP systolic 124–154; BP diastolic 71–91
[~2018-10-22 06:58] MED LIST changes: -ATOR20TA PO; +CLINDAmcin 900mg/NS 50ml IVPB 50 ML IV ONE; +DOCUMENT DATE & TIME OF BETA-BLOCKER PO ONE; +albuterol 2.5 MG/3 ML nebule NEB ONE; +famotidine 20mg tablet PO ONE; +ringers solution, lacted 1,000 ML IV SCH
[2018-10-22] MEDS ORDERED: ondansetron/PF 4mg/2ml inj ONE ×2 (08:52→11:09)
[2018-10-22 09:07] LABS: BASOPHILS % (AUTO) 0.6 % (0-1); EOSINOPHILS # (AUTO) 0.1 X10'3 (0-0.9); EOSINOPHILS % (AUTO) 1.7 % (0-6); HEMATOCRIT 30.7 % (42.0-52.0); HEMOGLOBIN 9.7 g/dl (14.0-17.9); LYMPHOCYTES # (AUTO) 0.8 X10'3 (1.1-4.8); LYMPHOCYTES % (AUTO) 11.8 % (21-51); MEAN CORPUSCULAR HEMOGLOBIN 23.9 PG (27.0-31.0); MEAN CORPUSCULAR HGB CONC 31.6 g/dL (33.0-36.5); MEAN CORPUSCULAR VOLUME 75.9 FL (78-98); MONOCYTES # (AUTO) 0.7 X10'3 (0-0.9); NEUTROPHILS # (AUTO) 5.3 X10'3 (1.8-7.7); NEUTROPHILS % (AUTO) 75.9 % (42-75); PLATELET COUNT 224 X10'3 (140-440); RED BLOOD COUNT 4.05 X10'6 (4.70-6.10); RED CELL DISTRIBUTION WIDTH 18.3 % (11.5-14.5)
[2018-10-22 09:10] LABS: ALANINE AMINOTRANSFERASE 18 U/L (12-78); ALBUMIN 3.2 G/DL (3.4-5.0); ALBUMIN/GLOBULIN RATIO 0.9 (1.1-1.5); ALKALINE PHOSPHATASE 132 IU/L (46-116); ANION GAP 10 (8-16); ASPARTATE AMINO TRANSFERASE 16 U/L (10-37); BILIRUBIN,TOTAL 0.5 MG/DL (0.1-1.0); BLOOD UREA NITROGEN 19 MG/DL (7-18); BUN/CREATININE RATIO 15.1 (5.4-32.0); CALCIUM 9.1 MG/DL (8.5-10.1); CHLORIDE 107 MMOL/L (99-107); CREATININE 1.26 MG/DL (0.60-1.10); GLUCOSE 98 MG/DL (70-104); POTASSIUM 4.5 MMOL/L (3.5-5.1); SODIUM 141 MMOL/L (135-145); TOTAL CARBON DIOXIDE 24.1 MMOL/L (24-32); TOTAL PROTEIN 6.6 G/DL (6.4-8.2); eGFR 56 ML/MIN
[2018-10-22] MEDS ORDERED: ondansetron/PF 4mg/2ml inj IV PRN ×2 (09:20→10:45)
[2018-10-22] MEDS ORDERED: metoprolol tartrate 12.5mg (1/2 tablet) PO STA (10:30)
[2018-10-22] MEDS ORDERED: BUPIVAcaine/PF 2.5mg/ml (0.25%) 10ml vial ONE (10:30)
[2018-10-22] MEDS ORDERED: LIDOcaine 1% 30ml preserv. free vial ONE (10:30)
[2018-10-22] MEDS ORDERED: HYDROmorphone inj. 0.5 MG/0.5 ML DISP.SYRIN IV PRN (10:45)
[2018-10-22] MEDS ORDERED: ringers solution, lacted 1,000 ML IV SCH (10:45)
[2018-10-22] MEDS ORDERED: sevoflurane 250ml liquid IH ONE (10:55)
[2018-10-22] MEDS ORDERED: fentaNYL/PF 50MCG/1 ML 2ML syringe ONE (10:56)
[2018-10-22] MEDS ORDERED: dexamethasone sod phosphate 4mg/ml inj. ONE (11:09)
[2018-10-22] MEDS ORDERED: LIDOcaine 2% (20mg/ml) 5ml vial ONE (11:09)
[2018-10-22] MEDS ORDERED: propofol inj 20 ML IV ONE (11:09)
--- NOTE | 2018-10-22 11:50 | NUR ---
Received from OR via [facility] , accompanied by Anesthesiologist DR BLANCO and report given by Anesthesiolgist. PATIENT A&OX4, DENIES PAIN, V/S WNL, CSM INTACT, 20G PIV TO RUE, RECTAL DRESSING W/ SCANT DRAINAGE.
[2018-10-22] MEDS: morphine 4 MG/ML inj SYRINge IV PRN ×2 (12:57→13:11)
--- NOTE | 2018-10-22 13:25 | NUR ---
PATIENT BLADDER SCANNED FOR 467CC URINE, HE IS UNABLE TO VOID. DR LUZ MARINA HANSON
[2018-10-22] MEDS ORDERED: LIDOcaine 2% 10ml TOPICAL JELLY (Urojet) MM ONE (13:35)
--- NOTE | 2018-10-22 14:06 | NUR ---
F/C PLACED PER DR LUZ MARINA COULTER, NO COMPLICATIONS OBSERVED, F/C DRAINING CLEAR YELLOW URINE APPROX 300CC
--- NOTE | 2018-10-22 14:30 | NUR ---
PATIENT A&OX4, DENIES PAIN, V/S WNL, CSM INTACT, 20G PIV TO RUE D/C, RECTAL DRESSING W/ SCANT DRAINAGE. F/C PLACED 16FRENCH DUE TO PATIENT BEING UNABLE TO VOID. PATIENT GIVEN EDUCATION ON HOW TO USE F/C CLEAN AND DRAIN IT AND HAS VERBALIZED UNDERSTANDING. I HAVE ALSO REVIEWED D/C INSTRUCTIONS AND PATIENT AND HIS FRIEND AND THEY VERBALIZED UNDERSTANDING WITH THIS. PATIENT D/C HOME WITH ALL BELONGINGS AND WILL F/U WITH DR RAZA IN HIS OFFICE IN 2 DAYS TO HAVE HIS F/C D/C THERE. HIS FRIEND GAVE TRANSPORT HOME.
== END 2018-10-22 14:30 | disposition home or self-care (01) ==
LOC: PAS 06:58
PROVIDERS: ATTEND Surgery
DX: K62.0 Anal polyp (principal); A63.0 Anogenital (venereal) warts; I50.9 Heart failure, unspecified; Z79.899 Other long term (current) drug therapy
CPT/HCPCS: 36415; 46922; 80053; 82948; 85025; 94640; 94760; A6224; A6449; J1100; J2001; J2270; J2405; J2704; J3010; J3490; A7000; J7120

== ENCOUNTER 2018-10-23 12:37 | Emergency (ER) | payer MEDICARE, MEDICAID ==
[~2018-10-23] VITALS: Ht 182.9 cm; Wt 65.0 kg
[~2018-10-23 12:37] MED LIST changes: -CLINDAmcin 900mg/NS 50ml IVPB 50 ML IV ONE; -DOCUMENT DATE & TIME OF BETA-BLOCKER PO ONE; -albuterol 2.5 MG/3 ML nebule NEB ONE; -famotidine 20mg tablet PO ONE; -ringers solution, lacted 1,000 ML IV SCH
[2018-10-23 12:46] VITALS: BP 146/91
== END 2018-10-23 13:29 | disposition home or self-care (01) ==
LOC: ER 12:38
DX: T83.038A Leakage of other urinary catheter, initial encounter (principal); I25.10 Atherosclerotic heart disease of native coronary artery without angina pectoris; I11.0 Hypertensive heart disease with heart failure; I50.9 Heart failure, unspecified; J44.9 Chronic obstructive pulmonary disease, unspecified; K64.9 Unspecified hemorrhoids; M10.9 Gout, unspecified; M19.90 Unspecified osteoarthritis, unspecified site; Z86.19 Personal history of other infectious and parasitic diseases; Z98.62 Peripheral vascular angioplasty status; Z90.81 Acquired absence of spleen; Z56.0 Unemployment, unspecified; Z88.0 Allergy status to penicillin; Z87.11 Personal history of peptic ulcer disease; Z88.5 Allergy status to narcotic agent; Z79.899 Other long term (current) drug therapy; Y84.6 Urinary catheterization as the cause of abnormal reaction of the patient, or of later complication, without mention of misadventure at the time of the procedure; Y92.89 Other specified places as the place of occurrence of the external cause
CPT/HCPCS: 88305; 99283

== ENCOUNTER 2018-10-27 07:36 | Emergency (ER) | payer MEDICARE, MEDICAID ==
[~2018-10-27] VITALS: Ht 182.9 cm; Wt 60.9 kg
[2018-10-27 09:15] VITALS: BP 160/80
[2018-10-28 16:44] LABS: OCCULT BLOOD STOOL POSITIVE (Neg)
== END 2018-10-27 09:19 | disposition home or self-care (01) ==
LOC: ER 07:37
DX: K62.5 Hemorrhage of anus and rectum (principal); I11.0 Hypertensive heart disease with heart failure; I50.9 Heart failure, unspecified; I25.10 Atherosclerotic heart disease of native coronary artery without angina pectoris; J44.9 Chronic obstructive pulmonary disease, unspecified; M19.90 Unspecified osteoarthritis, unspecified site; Z95.1 Presence of aortocoronary bypass graft; Z56.0 Unemployment, unspecified; Z88.0 Allergy status to penicillin
CPT/HCPCS: 82272; 99283

== ENCOUNTER 2018-11-02 17:24 | Emergency (ER) | payer MEDICARE, MEDICAID ==
[~2018-11-02] VITALS: Ht 182.9 cm; Wt 63.0 kg
[2018-11-02] MEDS ORDERED: aspirin 81mg tab.chew PO ONE (17:50)
[2018-11-02] MEDS ORDERED: nitroGLYCERIN 0.4mg SUBLingual tab SL PRN (17:50)
[2018-11-02 18:15] LABS: BASOPHILS # (AUTO) 0.1 X10'3 (0-0.2); BASOPHILS % (AUTO) 1.2 % (0-1); EOSINOPHILS # (AUTO) 0.2 X10'3 (0-0.9); EOSINOPHILS % (AUTO) 1.9 % (0-6); HEMATOCRIT 34.2 % (42.0-52.0); HEMOGLOBIN 10.6 g/dl (14.0-17.9); LYMPHOCYTES # (AUTO) 1.2 X10'3 (1.1-4.8); MEAN CORPUSCULAR HEMOGLOBIN 23.2 PG (27.0-31.0); MEAN CORPUSCULAR HGB CONC 31.1 g/dL (33.0-36.5); MEAN CORPUSCULAR VOLUME 74.7 FL (78-98); MEAN PLATELET VOLUME 7.9 FL (7.4-10.4); MONOCYTES % (AUTO) 9.4 % (2-12); NEUTROPHILS # (AUTO) 8.3 X10'3 (1.8-7.7); NEUTROPHILS % (AUTO) 76.5 % (42-75); PLATELET COUNT 255 X10'3 (140-440); RED BLOOD COUNT 4.57 X10'6 (4.70-6.10); RED CELL DISTRIBUTION WIDTH 18.1 % (11.5-14.5); WHITE BLOOD COUNT 10.8 X10'3 (4.5-11.0)
[2018-11-02 18:28] LABS: INR 1.1 INR; PARTIAL THROMBOPLASTIN TIME 29 SECONDS (22-32); PROTHROMBIN TIME 10.8 SECONDS (9.0-12.0)
[2018-11-02 18:43] LABS: ALANINE AMINOTRANSFERASE 16 U/L (12-78); ALBUMIN 3.3 G/DL (3.4-5.0); ALBUMIN/GLOBULIN RATIO 0.9 (1.1-1.5); ALKALINE PHOSPHATASE 121 IU/L (46-116); ANION GAP 17 (8-16); ASPARTATE AMINO TRANSFERASE 19 U/L (10-37); BILIRUBIN,TOTAL 0.4 MG/DL (0.1-1.0); BLOOD UREA NITROGEN 22 MG/DL (7-18); BUN/CREATININE RATIO 15.9 (5.4-32.0); CALCIUM 8.8 MG/DL (8.5-10.1); CHLORIDE 104 MMOL/L (99-107); CREATININE 1.38 MG/DL (0.60-1.10); GLUCOSE 111 MG/DL (70-104); MAGNESIUM 1.8 MG/DL (1.5-2.4); POTASSIUM 3.6 MMOL/L (3.5-5.1); SODIUM 143 MMOL/L (135-145); TOTAL CARBON DIOXIDE 21.9 MMOL/L (24-32); TOTAL PROTEIN 7.1 G/DL (6.4-8.2); eGFR 50 ML/MIN
--- NOTE | 2018-11-02 19:34 | NUR ---
PATIENT WAS ASKED TO PROVIDE URINE. AFTER TRYING UNSUCCESFULLY, PATIENT SAID HE WILL TRY LATER.
[2018-11-02 21:29] VITALS: BP 147/82
[2018-11-02] MEDS ORDERED: morphine 4 MG/ML inj SYRINge IV ONE (21:35)
[2018-11-02 21:48] LABS: CLARITY,URINE CLOUDY (Clear); COLOR,URINE YELLOW (Yellow); GLUCOSE, URINE NEGATIVE (Neg); KETONES,URINE NEGATIVE (Neg); LEUKOCYTE ESTERASE ,URINE SMALL (Neg); NITRITES, URINE NEGATIVE (Neg); OCCULT BLOOD,URINE SMALL (Neg); PH,URINE 5.5 (4.8-8.0); PROTEIN,URINE 100 mg/dl (Neg); UROBILINOGEN,URINE 0.2 E.U/dL (0.2-1.0)
[2018-11-02 22:03] LABS: UA COLLECTION TYPE CLN CATCH MIDSTREAM
[2018-11-02 22:04] LABS: BACTERIA,URINE 2+ /HPF (Neg); SQUAMOUS EPITHELIAL CELL,UR FEW /LPF (FEW); WBC CLUMPS,URINE FEW /HPF (NEGATIVE); WBC,URINE 30-50 /HPF (0-4)
== END 2018-11-02 22:20 | disposition home or self-care (01) ==
LOC: ER 17:39
DX: R07.89 Other chest pain (principal); J20.9 Acute bronchitis, unspecified; I25.10 Atherosclerotic heart disease of native coronary artery without angina pectoris; I50.9 Heart failure, unspecified; I11.0 Hypertensive heart disease with heart failure; J44.9 Chronic obstructive pulmonary disease, unspecified; Z86.19 Personal history of other infectious and parasitic diseases; Z98.61 Coronary angioplasty status; Z98.890 Other specified postprocedural states; Z56.0 Unemployment, unspecified; Z88.0 Allergy status to penicillin; Z79.899 Other long term (current) drug therapy
CPT/HCPCS: 36415; 71045; 80053; 81001; 83605; 83735; 83880; 84145; 84484; 85025; 85610; 85730; 87040; 87077; 87088; 87186; 93005; 96374; 99284; J2270

== ENCOUNTER 2019-01-10 18:23 | Emergency (ER) | payer MEDICARE, MEDICAID ==
[~2019-01-10] VITALS: Ht 182.9 cm; Wt 65.3 kg
[2019-01-10 19:25] LABS: CLARITY,URINE CLEAR (Clear); COLOR,URINE YELLOW (Yellow); GLUCOSE, URINE NEGATIVE (Neg); KETONES,URINE NEGATIVE (Neg); LEUKOCYTE ESTERASE ,URINE TRACE (Neg); NITRITES, URINE NEGATIVE (Neg); OCCULT BLOOD,URINE TRACE-LYSED (Neg); PROTEIN,URINE TRACE mg/dl (Neg); UROBILINOGEN,URINE 0.2 E.U/dL (0.2-1.0)
[2019-01-10 19:28] LABS: UA COLLECTION TYPE CLN CATCH MIDSTREAM
[2019-01-10 19:32] LABS: BACTERIA,URINE NONE SEEN /HPF (Neg); RBC,URINE 0-2 /HPF (0-2); SQUAMOUS EPITHELIAL CELL,UR FEW /LPF (FEW); WBC,URINE 0-4 /HPF (0-4)
[2019-01-10] MEDS ORDERED: ALFU10TA10 PO (20:28)
[2019-01-10 20:47] VITALS: BP 161/78
[2019-01-10] MEDS ORDERED: tamsulosin 0.4mg capsule PO SCH (21:00)
== END 2019-01-10 20:49 | disposition home or self-care (01) ==
LOC: ER 18:24
DX: N40.1 Benign prostatic hyperplasia with lower urinary tract symptoms (principal); R33.9 Retention of urine, unspecified; R30.0 Dysuria; I25.10 Atherosclerotic heart disease of native coronary artery without angina pectoris; I11.0 Hypertensive heart disease with heart failure; I50.9 Heart failure, unspecified; J44.9 Chronic obstructive pulmonary disease, unspecified; M19.90 Unspecified osteoarthritis, unspecified site; M10.9 Gout, unspecified; Z98.890 Other specified postprocedural states; Z87.891 Personal history of nicotine dependence; Z88.0 Allergy status to penicillin; Z87.11 Personal history of peptic ulcer disease; Z79.899 Other long term (current) drug therapy; Z56.0 Unemployment, unspecified
CPT/HCPCS: 81001; 87088; 99284

== ENCOUNTER 2020-02-11 14:42 | Emergency (ER) | payer MEDICARE, MEDICAID ==
[~2020-02-11] VITALS: Ht 185.4 cm; Wt 60.0 kg
[~2020-02-11 14:42] MED LIST changes: -OMEP20CA10 PO; +OMEP20CA15 PO
[2020-02-11 14:48] VITALS: BP 161/81
[2020-02-11 16:59] LABS: EOSINOPHILS # (AUTO) 0.2 X10'3 (0-0.9); HEMOGLOBIN 14.8 g/dl (14.0-17.9); MONOCYTES # (AUTO) 0.8 X10'3 (0-0.9); NEUTROPHILS # (AUTO) 4.4 X10'3 (1.8-7.7)
[2020-02-11 17:01] LABS: BASOPHILS # (AUTO) 0.1 X10'3 (0-0.2); BASOPHILS % (AUTO) 0.8 % (0-1); EOSINOPHILS % (AUTO) 2.4 % (0-6); HEMATOCRIT 45.4 % (42.0-52.0); LYMPHOCYTES # (AUTO) 1.5 X10'3 (1.1-4.8); LYMPHOCYTES % (AUTO) 22.2 % (21-51); MEAN CORPUSCULAR HEMOGLOBIN 31.5 PG (27.0-31.0); MEAN CORPUSCULAR HGB CONC 32.6 g/dL (33.0-36.5); MEAN CORPUSCULAR VOLUME 96.6 FL (78-98); MEAN PLATELET VOLUME 8.6 FL (7.4-10.4); MONOCYTES % (AUTO) 11.4 % (2-12); NEUTROPHILS % (AUTO) 63.2 % (42-75); PLATELET COUNT 120 X10'3 (140-440); RED CELL DISTRIBUTION WIDTH 16.3 % (11.5-14.5)
[2020-02-11 17:11] LABS: PARTIAL THROMBOPLASTIN TIME 31 SECONDS (22-32)
[2020-02-11 17:14] LABS: ALANINE AMINOTRANSFERASE 25 U/L (12-78); ALBUMIN 3.8 G/DL (3.4-5.0); ALBUMIN/GLOBULIN RATIO 1.3 (1.1-1.5); ALKALINE PHOSPHATASE 93 IU/L (46-116); ANION GAP 12 (8-16); ASPARTATE AMINO TRANSFERASE 30 U/L (10-37); BLOOD UREA NITROGEN 25 MG/DL (7-18); BUN/CREATININE RATIO 17.7 (5.4-32.0); CALCIUM 9.1 MG/DL (8.5-10.1); CHLORIDE 110 MMOL/L (99-107); CREATININE 1.41 MG/DL (0.60-1.10); GLUCOSE 86 MG/DL (70-104); POTASSIUM 4.4 MMOL/L (3.5-5.1); SODIUM 144 MMOL/L (135-145); TOTAL CARBON DIOXIDE 21.9 MMOL/L (24-32); TOTAL PROTEIN 6.7 G/DL (6.4-8.2); eGFR 49 ML/MIN
[2020-02-11 17:45] LABS: PLATELET ESTIMATE DECREASED
[2020-02-11 17:46] LABS: ANISOCYTOSIS 1+; BURR CELLS FEW; SCHISTOCYTES FEW
== END 2020-02-11 17:56 | disposition home or self-care (01) ==
LOC: ER 14:43
DX: C46.9 Kaposi's sarcoma, unspecified (principal); R58 Hemorrhage, not elsewhere classified; R22.1 Localized swelling, mass and lump, neck; I25.10 Atherosclerotic heart disease of native coronary artery without angina pectoris; I11.0 Hypertensive heart disease with heart failure; I50.9 Heart failure, unspecified; J43.9 Emphysema, unspecified; F17.200 Nicotine dependence, unspecified, uncomplicated; M19.90 Unspecified osteoarthritis, unspecified site; Z87.01 Personal history of pneumonia (recurrent); Z86.19 Personal history of other infectious and parasitic diseases; Z87.11 Personal history of peptic ulcer disease; Z86.2 Personal history of diseases of the blood and blood-forming organs and certain disorders involving the immune mechanism; Z98.890 Other specified postprocedural states; Z72.89 Other problems related to lifestyle; Z56.0 Unemployment, unspecified; Z88.0 Allergy status to penicillin; Z79.899 Other long term (current) drug therapy
CPT/HCPCS: 36415; 80053; 85025; 85610; 85730; 99283

== ENCOUNTER 2020-04-19 16:36 | Emergency (ER) | payer MEDICARE, MEDICAID ==
[~2020-04-19] VITALS: Ht 182.9 cm; Wt 63.6 kg
[2020-04-19 17:48] LABS: BASOPHILS # (AUTO) 0.1 X10'3 (0-0.2); BASOPHILS % (AUTO) 0.9 % (0-1); EOSINOPHILS # (AUTO) 0.1 X10'3 (0-0.9); EOSINOPHILS % (AUTO) 0.8 % (0-6); HEMATOCRIT 46.4 % (42.0-52.0); HEMOGLOBIN 15.4 g/dl (14.0-17.9); LYMPHOCYTES # (AUTO) 1.1 X10'3 (1.1-4.8); LYMPHOCYTES % (AUTO) 12.6 % (21-51); MEAN CORPUSCULAR HEMOGLOBIN 31.9 PG (27.0-31.0); MEAN CORPUSCULAR HGB CONC 33.2 g/dL (33.0-36.5); MEAN CORPUSCULAR VOLUME 95.9 FL (78-98); MEAN PLATELET VOLUME 8.8 FL (7.4-10.4); MONOCYTES # (AUTO) 0.7 X10'3 (0-0.9); MONOCYTES % (AUTO) 8.1 % (2-12); NEUTROPHILS # (AUTO) 6.5 X10'3 (1.8-7.7); NEUTROPHILS % (AUTO) 77.6 % (42-75); PLATELET COUNT 151 X10'3 (140-440); RED BLOOD COUNT 4.84 X10'6 (4.70-6.10); RED CELL DISTRIBUTION WIDTH 16.3 % (11.5-14.5); WHITE BLOOD COUNT 8.4 X10'3 (4.5-11.0)
[2020-04-19 18:02] LABS: ALANINE AMINOTRANSFERASE 21 U/L (12-78); ALBUMIN/GLOBULIN RATIO 1.3 (1.1-1.5); ALKALINE PHOSPHATASE 82 IU/L (46-116); ANION GAP 11 (8-16); ASPARTATE AMINO TRANSFERASE 22 U/L (10-37); BILIRUBIN,TOTAL 0.9 MG/DL (0.1-1.0); BLOOD UREA NITROGEN 30 MG/DL (7-18); BUN/CREATININE RATIO 18.1 (5.4-32.0); CALCIUM 9.3 MG/DL (8.5-10.1); CHLORIDE 105 MMOL/L (99-107); CREATININE 1.66 MG/DL (0.60-1.10); GLUCOSE 94 MG/DL (70-104); POTASSIUM 3.7 MMOL/L (3.5-5.1); SODIUM 140 MMOL/L (135-145); TOTAL CARBON DIOXIDE 24.3 MMOL/L (24-32); eGFR 40 ML/MIN
[2020-04-19] MEDS ORDERED: normal saline 1000ML IV soln IVB ONE ×2 (18:25→18:30)
[2020-04-19] MEDS ORDERED: loperamide 2mg capsule PO ONE (18:35)
[2020-04-19 19:22] VITALS: BP 157/86
== END 2020-04-19 19:19 | disposition home or self-care (01) ==
LOC: ER 16:37
DX: R19.7 Diarrhea, unspecified (principal); I25.10 Atherosclerotic heart disease of native coronary artery without angina pectoris; I50.9 Heart failure, unspecified; I11.0 Hypertensive heart disease with heart failure; J44.9 Chronic obstructive pulmonary disease, unspecified; M19.90 Unspecified osteoarthritis, unspecified site; Z98.890 Other specified postprocedural states; Z98.61 Coronary angioplasty status; Z56.0 Unemployment, unspecified; Z88.0 Allergy status to penicillin; Z79.899 Other long term (current) drug therapy
CPT/HCPCS: 36415; 80053; 85025; 96360; 99283; J7030

== ENCOUNTER 2020-06-18 08:55 | Day surgery (SDC) | payer MEDICARE, MEDICAID ==
[~2020-06-18] VITALS: Ht 180.3 cm; Wt 64.2 kg
[2020-06-18] MEDS ORDERED: normal saline 1,000 ML IV SCH (09:15)
[2020-06-18] MEDS ORDERED: diphenhydrAMINE 25mg capsule PO PRN (09:15)
== END 2020-06-18 09:40 | disposition home or self-care (01) ==
LOC: SSTAY O 08:55
PROVIDERS: ATTEND Internal Medicine Cardiovascular Disease
DX: R94.31 Abnormal electrocardiogram [ECG] [EKG] (principal); Z53.29 Procedure and treatment not carried out because of patient's decision for other reasons; R07.89 Other chest pain; I25.10 Atherosclerotic heart disease of native coronary artery without angina pectoris; I35.0 Nonrheumatic aortic (valve) stenosis; E78.5 Hyperlipidemia, unspecified; J44.9 Chronic obstructive pulmonary disease, unspecified; G47.30 Sleep apnea, unspecified; Z79.899 Other long term (current) drug therapy

== ENCOUNTER 2020-06-28 10:10 | Day surgery (SDC) | payer MEDICARE, MEDICAID ==
[~2020-06-28] VITALS: Ht 182.9 cm; Wt 62.7 kg
[2020-06-28] VITALS (9 sets, daily range): BP systolic 137–179; BP diastolic 37–100
[2020-06-28] MEDS ORDERED: diphenhydrAMINE 25mg capsule PO PRN (10:30)
[2020-06-28] MEDS ORDERED: normal saline 1,000 ML IV SCH ×2 (10:30→15:00)
[2020-06-28 11:12] LABS: BASOPHILS % (AUTO) 0.6 % (0-1); EOSINOPHILS # (AUTO) 0.1 X10'3 (0-0.9); EOSINOPHILS % (AUTO) 1.6 % (0-6); HEMATOCRIT 42.2 % (42.0-52.0); HEMOGLOBIN 14.1 g/dl (14.0-17.9); LYMPHOCYTES # (AUTO) 0.9 X10'3 (1.1-4.8); LYMPHOCYTES % (AUTO) 16.7 % (21-51); MEAN CORPUSCULAR HEMOGLOBIN 31.6 PG (27.0-31.0); MEAN CORPUSCULAR HGB CONC 33.3 g/dL (33.0-36.5); MEAN CORPUSCULAR VOLUME 94.9 FL (78-98); MONOCYTES # (AUTO) 0.4 X10'3 (0-0.9); MONOCYTES % (AUTO) 7.7 % (2-12); NEUTROPHILS # (AUTO) 4.1 X10'3 (1.8-7.7); NEUTROPHILS % (AUTO) 73.4 % (42-75); PLATELET COUNT 126 X10'3 (140-440); RED BLOOD COUNT 4.45 X10'6 (4.70-6.10); RED CELL DISTRIBUTION WIDTH 15.4 % (11.5-14.5); WHITE BLOOD COUNT 5.6 X10'3 (4.5-11.0)
[2020-06-28] MEDS ORDERED: IRON (11:18)
[2020-06-28] MEDS ORDERED: ATOR20TA PO (11:18)
[2020-06-28] MEDS ORDERED: MULT-1085 PO (11:18)
[2020-06-28] MEDS ORDERED: NITR0.4T48 SL (11:18)
[2020-06-28] MEDS ORDERED: VITAMIN D (11:18)
[2020-06-28 11:22] LABS: ALBUMIN 3.8 G/DL (3.4-5.0); ANION GAP 15 (8-16); BLOOD UREA NITROGEN 24 MG/DL (7-18); BUN/CREATININE RATIO 18.9 (5.4-32.0); CALCIUM 9.1 MG/DL (8.5-10.1); CHLORIDE 106 MMOL/L (99-107); CREATININE 1.27 MG/DL (0.60-1.10); GLUCOSE 87 MG/DL (70-104); MAGNESIUM 1.5 MG/DL (1.5-2.4); POTASSIUM 4.2 MMOL/L (3.5-5.1); SODIUM 141 MMOL/L (135-145); TOTAL CARBON DIOXIDE 20.3 MMOL/L (24-32); eGFR 55 ML/MIN
[2020-06-28] MEDS ORDERED: LIDOcaine 1% (10mg/ml)w/preservative injection 20ml MDV ONE (13:03)
[2020-06-28] MEDS ORDERED: fentaNYL/PF 50MCG/1 ML 2ML syringe ONE (13:03)
[2020-06-28] MEDS ORDERED: heparin 1,000unit/ml 10ml vial 10 ML ONE (13:03)
[2020-06-28] MEDS ORDERED: midazolam 2 mg/2 ml injection ONE ×2 (13:03→13:30)
[2020-06-28] MEDS ORDERED: iohexol 350MG/ML 100ml bottle IV ONE (13:04)
[2020-06-28] MEDS ORDERED: iohexol 350 MG/ML 50ML vial IV ONE (13:04)
[2020-06-28] MEDS ORDERED: HYDROcodone/acetaminophen 5mg/325mg tablet PO PRN (15:00)
[2020-06-28] MEDS ORDERED: ondansetron/PF 4mg/2ml inj IV PRN (15:00)
[2020-06-28] MEDS ORDERED: HYDROcodone/acetaminophen 10/325mg tab PO PRN (15:00)
[2020-06-28] MEDS ORDERED: proCHLORperazine 10 MG/2 ml inj IV PRN (15:00)
== END 2020-06-28 17:35 | disposition home or self-care (01) ==
LOC: SSTAY O 10:10
PROVIDERS: ATTEND Internal Medicine Cardiovascular Disease
DX: R06.09 Other forms of dyspnea (principal); R07.89 Other chest pain; I25.10 Atherosclerotic heart disease of native coronary artery without angina pectoris; J44.9 Chronic obstructive pulmonary disease, unspecified; I78.0 Hereditary hemorrhagic telangiectasia; I27.20 Pulmonary hypertension, unspecified; E78.5 Hyperlipidemia, unspecified; G47.30 Sleep apnea, unspecified; D64.9 Anemia, unspecified; Z95.2 Presence of prosthetic heart valve; Z86.73 Personal history of transient ischemic attack (TIA), and cerebral infarction without residual deficits; Z87.891 Personal history of nicotine dependence; Z79.899 Other long term (current) drug therapy
CPT/HCPCS: 36415; 80048; 83735; 85025; 85610; 93005; 93460; 99152; 99153; C1760; C1769; C1894; J1644; J2001; J2250; J3010; J7030; Q0163; Q9967; A4620; A6258; C1751